=== PATIENT | male | born 1990 | race American Indian/Alaskan Native ===

== ENCOUNTER 2019-08-18 06:10 | Inpatient (IN) | payer OTHER ==
[~2019-08-18 06:10] MED LIST: DEXTROSE 50% IN WATER (25GM) 50 ML SYRINGE IV ONE
[2019-08-18] MEDS ORDERED: DEXTROSE 50% IN WATER (25GM) 50 ML SYRINGE IV ONE (06:15)
[2019-08-18] MEDS ORDERED: ONDANSETRON 4 MG/2 ML INJ IV ONE (06:48)
[2019-08-18 07:20] LABS: Bilirubin,Urine NEG (Negative); Blood,Urine NEG (Negative); Color,Urine Straw (Yellow); Urobilinogen,Urine < 2.0 mg/dL (<2.0)
[2019-08-18 07:23] LABS: Protein,Urine >2000 mg dL mg/dL (Negative)
[2019-08-18 07:24] LABS: Basophils # (Auto) 0.1 K/mm3 (0.0-0.1); Basophils % (Auto) 1.1 % (0.0-1.8); Eosinophils # (Auto) 0.1 K/mm3 (0.0-0.4); Eosinophils % (Auto) 1.8 % (0.0-4.3); Hematocrit 32.3 % (35.5-45.6); Lymphocytes # (Auto) 1.6 K/mm3 (1.2-5.4); Lymphocytes % (Auto) 24.6 % (13.4-35.0); Mean Corpuscular HGB Conc 31 % (32-34); Mean Corpuscular Volume 71 fl (84-94); Monocytes # (Auto) 0.4 K/mm3 (0.0-0.8); Monocytes % (Auto) 6.6 % (0.0-7.3); Platelet Count 236 K/mm3 (140-440); Red Blood Count 4.55 M/mm3 (3.65-5.03); Red Cell Distribution Width 16.5 % (13.2-15.2)
[2019-08-18 07:36] LABS: Calcium 9.3 mg/dL (8.4-10.2)
--- NOTE | 2019-08-18 08:24 | Emergency Department Report ---
ED Altered Mental Status HPI - General Chief Complaint: Hypoglycemia Stated Complaint: HYPOGLYCEMIA Time Seen by Provider: 08/18/19 06:34 Source: family, EMS Mode of arrival: Stretcher Limitations: Physical Limitation - History of Present Illness Initial Comments: 28-year-old male with a past medical history of insulin-dependent diabetes since age 4 presents to the hospital complaining of alteration in mental status secondary to hypoglycemia. Patient spoke to his mother to phone at 1 AM. She returned home at 5:05 AM and found him unconscious on the floor. Accu-Chek noted to be 36 upon EMS arrival. IV access was not obtained. Upon ED arrival A ccu-Chek was 20 a.m. patient was cold, clammy, and drowsy. Patient received 1 amp of D50 prior to my evaluation and was alert and oriented 3. Complained of feeling cold. Patient states he takes NovoLog 30 units in a.m. and 20 units daily at bedtime. Patient thinks he ate less food last night than usual. He denies any recent infectious symptoms. He denies nausea, vomiting, fever, cough, shortness of breath, or dysuria. Patient also denies pain including headache, abdominal pain, or chest pain. Patient presents with elevated blood pressure. States he was told 2 months ago in [place] his blood pressure is high and states he was supposed to start medication. He moved to the [place] a constance 3 weeks ago. He states to his knowledge his kidney function is normal. - Related Data Allergies Allergy/AdvReac Type Severity Reaction Status Date / Time No Known Allergies Allergy Verified 08/18/19 06:38 ED Review of Systems ROS: Stated complaint: HYPOGLYCEMIA Other details as noted in HPI Comment: All other systems reviewed and negative ED Past Medical Hx - Past Medical History Previous Medical History?: Yes Hx Diabetes: Yes - Surgical History Past Surgical History?: No - Social History Smoking Status: Never Smoker Substance Use Type: Alcohol, Marijuana ED Physical Exam - General Limitations: Physical Limitation - Other Other exam information: General: No acute distress Head: Atraumatic Eyes: normal appearance ENT: Moist mucous membranes Neck: Normal appearance, no midline tenderness Chest: Clear to auscultation bilaterally CV: Regular rate and rhythm Abdomen: Soft, normal bowel sounds, nontender, nondistended, no rebound or guarding Back: Normal inspection Extremity: Normal inspection infection, full range of motion Neuro: Alert O x 3, no facial asymmetry, speech clear, no gross motor sensory deficit Psych: Appropriate behavior Skin: No rash ED Course Vital Signs 08/18/19 08/18/19 08/18/19 06:20 06:29 08:04 Temperature 97.4 F L 97.9 F Pulse Rate 94 H 99 H Respiratory 20 17 Rate Blood Pressure 243/127 Blood Pressure 243/127 186/117 [Left] O2 Sat by Pulse 100 100 Oximetry - Lab Data Result diagrams: 08/18/19 07:11 08/18/19 07:11 Lab Results 08/18/19 08/18/19 08/18/19 Range/Units 06:24 06:51 06:54 WBC (4.5-11.0) K/mm3 RBC (3.65-5.03) M/mm3 Hgb (11.8-15.2) gm/dl Hct (35.5-45.6) % MCV (84-94) fl MCH (28-32) pg MCHC (32-34) % RDW (13.2-15.2) % Plt Count (140-440) K/mm3 Lymph % (Auto) (13.4-35.0) % [place] % (Auto) (0.0-7.3) % Eos % (Auto) (0.0-4.3) % Baso % (Auto) (0.0-1.8) % Lymph # (1.2-5.4) K/mm3 [place] # (0.0-0.8) K/mm3 Eos # (0.0-0.4) K/mm3 Baso # (0.0-0.1) K/mm3 Seg Neutrophils % (40.0-70.0) % Seg Neutrophils # (1.8-7.7) K/mm3 Sodium (137-145) mmol/L Potassium (3.6-5.0) mmol/L Chloride (98-107) mmol/L Carbon Dioxide (22-30) mmol/L Anion Gap mmol/L BUN (9-20) mg/dL Creatinine (0.8-1.5) mg/dL Estimated GFR ml/min BUN/Creatinine Ratio % Glucose (75-100) mg/dL POC Glucose < 40 L 131 H (70-105) Calcium (8.4-10.2) mg/dL Urine Color Straw (Yellow) Urine Turbidity Clear (Clear) Urine pH 6.0 (5.0-7.0) Ur Specific [place] 1.008 (1.003-1.030) Urine Protein >2000 mg dl (Negative) mg/dL Urine Glucose (UA) 50 (Negative) mg/dL Urine Ketones Neg (Negative) mg/dL Urine Blood Neg (Negative) Urine Nitrite Neg (Negative) Urine Bilirubin Neg (Negative) Urine Urobilinogen < 2.0 (<2.0) mg/dL Ur Leukocyte Esterase Neg (Negative) Urine WBC (Auto) 1.0 (0.0-6.0) /HPF Urine RBC (Auto) 2.0 (0.0-6.0) /HPF U Epithel Cells (Auto) < 1.0 (0-13.0) /HPF 08/18/19 08/18/19 08/18/19 Range/Units 07:11 07:11 08:10 WBC 6.5 (4.5-11.0) K/mm3 RBC 4.55 (3.65-5.03) M/mm3 Hgb 10.0 L (11.8-15.2) gm/dl Hct 32.3 L (35.5-45.6) % MCV 71 L (84-94) fl MCH 22 L (28-32) pg MCHC 31 L (32-34) % RDW 16.5 H (13.2-15.2) % Plt Count 236 (140-440) K/mm3 Lymph % (Auto) 24.6 (13.4-35.0) % Reynolds % (Auto) 6.6 (0.0-7.3) % Eos % (Auto) 1.8 (0.0-4.3) % Baso % (Auto) 1.1 (0.0-1.8) % Lymph # 1.6 (1.2-5.4) K/mm3 Reynolds # 0.4 (0.0-0.8) K/mm3 Eos # 0.1 (0.0-0.4) K/mm3 Baso # 0.1 (0.0-0.1) K/mm3 Seg Neutrophils % 65.9 (40.0-70.0) % Seg Neutrophils # 4.3 (1.8-7.7) K/mm3 Sodium 143 (137-145) mmol/L Potassium 4.4 (3.6-5.0) mmol/L Chloride 107.7 H (98-107) mmol/L Carbon Dioxide 19 L (22-30) mmol/L Anion Gap 21 mmol/L BUN 27 H (9-20) mg/dL Creatinine 2.5 H (0.8-1.5) mg/dL Estimated GFR 31 ml/min BUN/Creatinine Ratio 11 % Glucose 79 (75-100) mg/dL POC Glucose 78 (70-105) Calcium 9.3 (8.4-10.2) mg/dL Urine Color (Yellow) Urine Turbidity (Clear) Urine pH (5.0-7.0) Ur Specific [place] (1.003-1.030) Urine Protein (Negative) mg/dL Urine Glucose (UA) (Negative) mg/dL Urine Ketones (Negative) mg/dL Urine Blood (Negative) Urine Nitrite (Negative) Urine Bilirubin (Negative) Urine Urobilinogen (<2.0) mg/dL Ur Leukocyte Esterase (Negative) Urine WBC (Auto) (0.0-6.0) /HPF Urine RBC (Auto) (0.0-6.0) /HPF U Epithel Cells (Auto) (0-13.0) /HPF - EKG Data -: EKG Interpreted by [facility] EKG shows normal: sinus rhythm, ST-T waves (no stemi) Rate: normal - Medical Decision Making Patient has renal insufficiency. Denies previous history. Patient is medically elevated blood pressure. Denies headache, blurred vision, focal numbness or weakness. Altered mental status secondary to hypoglycemia corrected with IV insulin and oral food. Hypothermia is also correcting with active warming. Labetalol ordered for blood pressure. Hospitalist to admit for further treatment neprology consult ordered - Differential Diagnosis hyperglycemia, insulin reaction, infection Critical Care Time: No Critical care attestation.: If time is entered above; I have spent that time in minutes in the direct care of this critically ill patient, excluding procedure time. ED Disposition Clinical Impression: Hypoglycemia, Renal insufficiency, Uncontrolled hypertension, IDDM (insulin dependent diabetes mellitus) Disposition: OP ADMIT IP TO THIS HOSP Is pt being admited?: Yes Condition: Stable Time of Disposition: 08:32 (Dr aguirre/maddison)
[2019-08-18] MEDS ORDERED: ACETAMINOPHEN 325 MG TAB PO PRN (11:06)
[2019-08-18] MEDS ORDERED: ONDANSETRON 4 MG/2 ML INJ IV PRN (11:06)
[2019-08-18] MEDS ORDERED: oxyCODONE /ACETAMINOPHEN 5-325MG TAB PO PRN (11:06)
[2019-08-18] MEDS ORDERED: DEXTROSE 50% IN WATER (25GM) 50 ML SYRINGE IV PRN (11:09)
[2019-08-18] MEDS ORDERED: SODIUM CHLORIDE 0.9% 1000 ML 1,000 ML IV SCH (11:15)
[2019-08-18] MEDS ORDERED: SODIUM CHLORIDE 0.45% 500 ML IV SCH (12:00)
[2019-08-18] MEDS ORDERED: hydrALAZINE 20 MG/1 ML INJ IV PRN ×2 (12:12→12:14)
--- NOTE | 2019-08-18 12:12 | History and Physical Report ---
History of Present Illness Date of examination: 08/18/19 Date of admission: 08/18/19 08:37 Chief complaint: Low BG and AMS History of present illness: 28-year-old male with a past medical history of insulin-dependent diabetes since age 4 who was brought to the ED via EMS on account of low BG and AMS. Patient spoke to his mother on the phone at 1 AM. She returned home at 5:05 AM and found him unconscious on the floor. Accu-Chek noted to be 36 upon EMS arrival. Upon ED arrival, Accu-Chek was 20 and patient was cold, clammy, and drowsy. He received 1 amp of D50 and he complained of chills. Patient states he takes NovoLog 30 units in a.m. and 20 units daily at bedtime. He thinks he ate less food last night than usual. He denied any symptoms prior to the incident. He denies nausea, vomiting, fever, cough, shortness of breath, or dysuria. Patient also denies pain including headache, abdominal pain, or chest pain. Patient was also noted to have elevated blood pressure at presentation. He states that he was told 2 months ago in [place] that his blood pressure was high and he was supposed to start medication. He moved to the [place] area 3 weeks ago. He states to his knowledge that his kidney function is normal. Past History Past Medical History: diabetes, hypertension Past Surgical History: No surgical history Social history: other (He denies tobacco and alcohol use but admits to 4 yrs h/o marijuana use) Family history: diabetes (grandmum) Medications and Allergies Allergies Allergy/AdvReac Type Severity Reaction Status Date / Time No Known Allergies Allergy Verified 08/18/19 06:38 Home Medications Medication Instructions Recorded Confirmed Last Taken Type Insulin NPH Hum/Reg Insulin Hm 20 units SUB-Q QACHS 08/18/19 08/18/19 08/17/19 History [Novolin 70-30 100 Unit/ml Vial] Active Meds: Active Medications Acetaminophen (Tylenol) 650 mg PO Q4H PRN PRN Reason: Pain MILD(1-3)/Fever >100.5/KLEIN Dextrose (D50w (25gm) Syringe) 50 ml IV Q30MIN PRN; Protocol PRN Reason: Hypoglycemia Sodium Chloride (Nacl 0.45% 1000 Ml) 1,000 mls @ 100 mls/hr IV DIRECT SUZANNA Insulin Human Lispro (Humalog) 0 unit SUB-Q ACHS SUZANNA; Protocol Ondansetron HCl (Zofran) 4 mg IV Q8H PRN PRN Reason: Nausea And Vomiting Oxycodone/Acetaminophen (Percocet 5/325) 1 tab PO Q6H PRN PRN Reason: Pain, Moderate (4-6) Sodium Chloride (Sodium Chloride Flush Syringe 10 Ml) 10 ml IV BID SUZANNA Sodium Chloride (Sodium Chloride Flush Syringe 10 Ml) 10 ml IV PRN PRN PRN Reason: LINE FLUSH Review of Systems All systems: negative (All other systems reviewed with the pt and are neg unless otherwise stated above) Exam - Constitutional Vitals: Temp Pulse Resp BP Pulse Ox 98.2 F 101 H 20 176/106 100 08/18/19 08:55 08/18/19 10:31 08/18/19 10:31 08/18/19 10:31 08/18/19 10:31 General appearance: Present: no acute distress, well-nourished - EENT Eyes: Present: PERRL, EOM intact ENT: hearing intact, clear oral mucosa - Neck Neck: Present: supple, normal ROM - Respiratory Respiratory effort: normal Respiratory: bilateral: CTA - Cardiovascular Rhythm: regular Heart Sounds: Present: S1 & S2. Absent: rub, click - Extremities Extremities: No edema Peripheral Pulses: within normal limits - Abdominal General gastrointestinal: Present: soft, non-tender, non-distended, normal bowel sounds Male genitourinary: Present: deferred - Integumentary Integumentary: Present: clear, warm, dry - Musculoskeletal Musculoskeletal: gait normal, strength equal bilaterally - Psychiatric Psychiatric: appropriate mood/affect, intact judgment & insight - Neurologic Neurologic: CNII-XII intact, moves all extremities Results - Labs CBC & Chem 7: 08/18/19 07:11 08/18/19 07:11 Labs: Laboratory Last Values WBC 6.5 K/mm3 (4.5-11.0) 08/18/19 07:11 RBC 4.55 M/mm3 (3.65-5.03) 08/18/19 07:11 Hgb 10.0 gm/dl (11.8-15.2) L 08/18/19 07:11 Hct 32.3 % (35.5-45.6) L 08/18/19 07:11 MCV 71 fl (84-94) L 08/18/19 07:11 MCH 22 pg (28-32) L 08/18/19 07:11 MCHC 31 % (32-34) L 08/18/19 07:11 RDW 16.5 % (13.2-15.2) H 08/18/19 07:11 Plt Count 236 K/mm3 (140-440) 08/18/19 07:11 Lymph % (Auto) 24.6 % (13.4-35.0) 08/18/19 07:11 [place] % (Auto) 6.6 % (0.0-7.3) 08/18/19 07:11 Eos % (Auto) 1.8 % (0.0-4.3) 08/18/19 07:11 Baso % (Auto) 1.1 % (0.0-1.8) 08/18/19 07:11 Lymph # 1.6 K/mm3 (1.2-5.4) 08/18/19 07:11 [place] # 0.4 K/mm3 (0.0-0.8) 08/18/19 07:11 Eos # 0.1 K/mm3 (0.0-0.4) 08/18/19 07:11 Baso # 0.1 K/mm3 (0.0-0.1) 08/18/19 07:11 Seg Neutrophils % 65.9 % (40.0-70.0) 08/18/19 07:11 Seg Neutrophils # 4.3 K/mm3 (1.8-7.7) 08/18/19 07:11 Sodium 143 mmol/L (137-145) 08/18/19 07:11 Potassium 4.4 mmol/L (3.6-5.0) 08/18/19 07:11 Chloride 107.7 mmol/L (98-107) H 08/18/19 07:11 Carbon Dioxide 19 mmol/L (22-30) L 08/18/19 07:11 Anion Gap 21 mmol/L 08/18/19 07:11 BUN 27 mg/dL (9-20) H 08/18/19 07:11 Creatinine 2.5 mg/dL (0.8-1.5) H 08/18/19 07:11 Estimated GFR 31 ml/min 08/18/19 07:11 BUN/Creatinine Ratio 11 % 08/18/19 07:11 Glucose 79 mg/dL (75-100) 08/18/19 07:11 POC Glucose 126 (70-105) H 08/18/19 09:26 Calcium 9.3 mg/dL (8.4-10.2) 08/18/19 07:11 Urine Color Straw (Yellow) 08/18/19 06:54 Urine Turbidity Clear (Clear) 08/18/19 06:54 Urine pH 6.0 (5.0-7.0) 08/18/19 06:54 Ur Specific [place] 1.008 (1.003-1.030) 08/18/19 06:54 Urine Protein >2000 mg dl mg/dL (Negative) 08/18/19 06:54 Urine Glucose (UA) 50 mg/dL (Negative) 08/18/19 06:54 Urine Ketones Neg mg/dL (Negative) 08/18/19 06:54 Urine Blood Neg (Negative) 08/18/19 06:54 Urine Nitrite Neg (Negative) 08/18/19 06:54 Urine Bilirubin Neg (Negative) 08/18/19 06:54 Urine Urobilinogen < 2.0 mg/dL (<2.0) 08/18/19 06:54 Ur Leukocyte Esterase Neg (Negative) 08/18/19 06:54 Urine WBC (Auto) 1.0 /HPF (0.0-6.0) 08/18/19 06:54 Urine RBC (Auto) 2.0 /HPF (0.0-6.0) 08/18/19 06:54 U Epithel Cells (Auto) < 1.0 /HPF (0-13.0) 08/18/19 06:54 Assessment and Plan Assessment and plan: IDDM type 1 with hypoglycemia -on hypoglycemic protocol -at home, pt takes novolin 70/30 30u in am and 20u at night -will place him on humulin 70/30 15u BID and SSI since he's DM1 and it's recommended not to entirely discontinue insulin in type 1 DM pts. Hypothermia -probably 2/2 above -resolved with elvin-hugger Metabolic encephalopathy -likely 2/2 hypoglycemia -resolved HTN urgency -on oral coreg and amlodipine -monitor BP and adjust meds as needed SUMIT -probably vasomotor nephropathy -on IVF, will monitor cr level -nephrology consulted Metabolic acidosis -likely 2/2 SUMIT -on IVF, will monitor level Chronic microcytic anemia -will check iron panel -will monitor H/H DVT ppx: SCD Disp: pt admitted to inpt status Time spent: 38 mins
[2019-08-18] MEDS: INSULIN LISPRO 100 UNIT/ML SUB-Q SCH ×3 (12:47→22:24)
[2019-08-18] MEDS: carvediloL 25 MG TAB PO SCH ×2 (12:57→22:23)
[2019-08-18] MEDS ORDERED: amLODIPine 5 MG TAB PO SCH (13:00)
[2019-08-18] MEDS: SODIUM CHLORIDE 0.45% 1000 ML 1,000 ML IV SCH (13:01)
--- NOTE | 2019-08-18 14:13 | Consultation ---
History of Present Illness - Reason for Consult Consult date: 08/18/19 acute renal failure, accelerated hypertension - History of Present Illness The pt is a 28 YO male with history significant for type 1 diabetes since age 4 who presented to [facility] ED after he was found unresponsive at home by his mother. Accucheck noted to be 36 by EMS. In the ED his blood sugar was <40. Patient received 1 amp of D50 with increase in the blood suagr level. He takes the usual dose fo Insulin but ate less food last night than usual. He denies nausea, vomiting, diarrhea, abd pain, fever, cough, shortness of breath, dysuria, cp or sob. He last saw a physician more than a year ago. He is not sure about his kidney function in the past. Initial BP was 240/130. Nephrology was consulted for further evaluation. Past History Past Medical History: diabetes Medications and Allergies Allergies Allergy/AdvReac Type Severity Reaction Status Date / Time No Known Allergies Allergy Verified 08/18/19 06:38 Home Medications Medication Instructions Recorded Confirmed Last Taken Type Insulin NPH Hum/Reg Insulin Hm 20 units SUB-Q QACHS 08/18/19 08/18/19 08/17/19 History [Novolin 70-30 100 Unit/ml Vial] Active Meds: Active Medications Acetaminophen (Tylenol) 650 mg PO Q4H PRN PRN Reason: Pain MILD(1-3)/Fever >100.5/KLEIN Amlodipine Besylate (Amlodipine) 5 mg PO QDAY [facility] Last Admin: 08/18/19 12:51 Dose: 5 mg Documented by: Carvedilol (Coreg) 25 mg PO BID [facility] Last Admin: 08/18/19 12:57 Dose: 25 mg Documented by: Dextrose (D50w (25gm) Syringe) 50 ml IV Q30MIN PRN; Protocol PRN Reason: Hypoglycemia Hydralazine HCl (Apresoline) 10 mg IV Q4HR PRN PRN Reason: Blood Pressure Sodium Chloride (Nacl 0.45% 1000 Ml) 1,000 mls @ 100 mls/hr IV DIRECT [facility] Last Admin: 08/18/19 13:01 Dose: 100 mls/hr Documented by: Insulin Human Lispro (Humalog) 0 unit SUB-Q ACHS SUZANNA; Protocol Last Admin: 08/18/19 12:47 Dose: 3 unit Documented by: Ondansetron HCl (Zofran) 4 mg IV Q8H PRN PRN Reason: Nausea And Vomiting Oxycodone/Acetaminophen (Percocet 5/325) 1 tab PO Q6H PRN PRN Reason: Pain, Moderate (4-6) Sodium Chloride (Sodium Chloride Flush Syringe 10 Ml) 10 ml IV BID SUZANNA Sodium Chloride (Sodium Chloride Flush Syringe 10 Ml) 10 ml IV PRN PRN PRN Reason: LINE FLUSH Review of Systems Constitutional: no weight loss, no weight gain, no fever, no chills, no anorexia, no fatigue, no weakness, no poor appetite Cardiovascular: no chest pain, no orthopnea, no edema, no lightheadedness, no shortness of breath, no high blood pressure, no leg edema Respiratory: no cough, no cough with sputum, no hemoptysis, no shortness of breath Gastrointestinal: no abdominal pain, no nausea, no vomiting, no diarrhea Genitourinary Male: no dysuria, no hematuria Musculoskeletal: no morning stiffness, no muscle cramps Integumentary: no rash, no sores, no wounds, no jaundice Neurological: change in mentation, confusion, no seizures, no syncope, no vertigo, no headaches, no convulsions, no aphasia Exam - Vital Signs Vital signs: Vital Signs Pulse Ox 100 08/18/19 06:18 - General Appearance General appearance: well-developed, well-nourished, appears stated age, other (not in distress) EENT: ATNC, PERRL, mucous membranes moist, hearing intact, vision intact Neck: Present: neck supple, trachea midline Respiratory: Clear to Ascultation Heart: regular, S1S2, no murmurs Gastrointestinal: Present: normoactive bowel sounds. Absent: tenderness, distended Integumentary: no rash, warm and dry Neurologic: no focal deficit, no asterixis, alert and oriented x3 Musculoskeletal: Present: other (no edema) Results - Lab Results 08/18/19 07:11 08/18/19 07:11 Most recent lab results Calcium 9.3 mg/dL (8.4-10.2) 08/18/19 07:11 - Image Kidney/bladder ultrasound: pending Assessment and Plan 1. Acute kidney injury vs CKD stage 3: Likely CKD stage 3 secondary to diabetic nephropathy. UA showed proteinuria. Urine studies and Renal US ordered. Monitor renal function. Avoid nephrotoxic agents. Meds dosage based on GFR. 2. FEN: Anion-gap Metabolic acidosis, monitor. Monitor lytes. 3. Proteinuria: Secondary to diabetic nephropathy. Urine protein quantification. 4. Encephalopathy: Improved. 5. DM type 1: Admitted with hypoglycemia. 6. Uncontrolled Hypertension: Started on Amlodipine and Carvedilol. Monitor BP. 7. Microcytic anemia: POA.
[2019-08-18] MEDS: INSULIN NPH/REGULAR 70/30 INJ SUB-Q SCH (18:02)
[2019-08-19] MEDS: SODIUM CHLORIDE 0.45% 1000 ML 1,000 ML IV SCH (02:33)
[2019-08-19 05:48] LABS: Hematocrit 31.8 % (35.5-45.6); Mean Corpuscular HGB Conc 32 % (32-34); Platelet Count 237 K/mm3 (140-440); Red Blood Count 4.56 M/mm3 (3.65-5.03); Red Cell Distribution Width 15.9 % (13.2-15.2)
[2019-08-19 06:08] LABS: Creatinine,Urine 65.5 mg/dL (0.1-20.0); Protein/Creatinine Ratio,Urine 2.98
[2019-08-19 06:08] LABS: Mean Corpuscular Volume 70 fl (84-94)
[2019-08-19 06:17] LABS: Alanine Aminotransferase 14 units/L (7-56); Albumin 3.7 g/dL (3.9-5); BUN/Creatinine Ratio 11; Blood Urea Nitrogen 30 mg/dL (9-20); Calcium 9.3 mg/dL (8.4-10.2); Hemolysis Index 0; Iron 56 ug/dL (49-181); Total Iron Binding Capacity 218 mcg/dL (250-450)
[2019-08-19] MEDS: INSULIN LISPRO 100 UNIT/ML SUB-Q SCH ×2 (07:53→12:38)
[2019-08-19] MEDS: INSULIN NPH/REGULAR 70/30 INJ SUB-Q SCH (08:10)
--- NOTE | 2019-08-19 08:59 | Ultrasound Report ---
ULTRASOUND RENAL INDICATION / CLINICAL INFORMATION: Acute renal failure.. COMPARISON: None available. FINDINGS: RIGHT KIDNEY: Length = 11.8 cm. [normal > 9 cm] - Parenchymal Thickness = 1.8 cm. [normal > 1.5 cm] - Echogenicity: Increased - Hydronephrosis: None. - Cyst or mass: No significant abnormality. - Stones: None seen. LEFT KIDNEY: Length = 11.9 cm. [normal > 9 cm] - Parenchymal Thickness = 1.6 cm. [normal > 1.5 cm] - Echogenicity: Increased - Hydronephrosis: None. - Cyst or mass: No significant abnormality. - Stones: None seen. URINARY BLADDER: No significant abnormality. FREE FLUID: None. ADDITIONAL FINDINGS: None. IMPRESSION: Increased renal echotexture consistent with nonspecific renal parenchymal disease or acute renal carmen lure. No focal renal lesion or obstructive uropathy. Signer Name: Roger Elias Jr, MD Signed: 08/19/2019 8:54 AM Workstation Name: [id number]
--- NOTE | 2019-08-19 09:44 | Progress Note ---
Assessment and Plan 1. Acute kidney injury vs CKD stage 3: Likely CKD stage 3 secondary to diabetic nephropathy. UA showed proteinuria. Renal US suggestive of CKD. Monitor renal function. Renal prognosis is guarded. Avoid nephrotoxic agents. Meds dosage based on GFR. 2. FEN: Anion-gap Metabolic acidosis, monitor. Monitor lytes. 3. Non-nephrotic range Proteinuria: Secondary to diabetic nephropathy. Start ACEI / ARB once he is established with a physician. 4. Encephalopathy: Improved. 5. DM type 1: Admitted with hypoglycemia. 6. Uncontrolled Hypertension: Increase Amlodipine. Continue Carvedilol. Monitor BP. 7. Microcytic anemia: POA. If discharged f/u with me in 2 weeks. Examination: General appearance: well-developed, well-nourished, appears stated age, not in distress HEENT: ATNC, [place], mucous membranes moist, hearing intact, vision intact Neck: neck supple, trachea midline Respiratory: Clear to Ascultation Heart: regular, S1S2, no murmurs Gastrointestinal: normoactive bowel sounds, not tender, not distended Integumentary: no rash, warm and dry Neurologic: no focal deficit, no asterixis, alert and oriented x3 Ext: no edema Subjective Date of service: 08/19/19 Interval history: Patient was seen and examined at the bedside. Objective - Vital Signs Vital signs: Vital Signs - 12hr 08/18/19 08/18/19 08/19/19 22:23 23:54 05:14 Temperature 98.1 F 98.0 F Pulse Rate 97 H 94 H 73 Respiratory 20 20 Rate Blood Pressure 154/92 141/79 163/104 O2 Sat by Pulse 100 100 Oximetry - Lab 08/19/19 04:48 08/19/19 07:01 Most recent lab results Calcium 9.3 mg/dL (8.4-10.2) 08/19/19 04:48 Phosphorus 4.60 mg/dL (2.5-4.5) H 08/19/19 04:48 Magnesium 2.30 mg/dL (1.7-2.3) 08/19/19 04:48 Urine Creatinine 65.5 mg/dL (0.1-20.0) H 08/19/19 05:05 Urine Sodium 58 mmol/L 08/19/19 05:05 Urine Total Protein 195 mg/dL (5-11.8) H 08/19/19 05:05 Medications & Allergies - Medications Allergies/Adverse Reactions: Allergies No Known Allergies Allergy (Verified 08/18/19 06:38) Home Medications: Home Medications Medication Instructions Recorded Confirmed Last Taken Type Insulin NPH Hum/Reg Insulin Hm 20 units SUB-Q QACHS 08/18/19 08/18/19 08/17/19 History [Novolin 70-30 100 Unit/ml Vial] Active Medications: Generic Name Dose Route Start Last Admin Trade Name Freq PRN Reason Stop Dose Admin Acetaminophen 650 mg 08/18/19 11:06 Tylenol PO Q4H PRN Pain MILD(1-3)/Fever >100.5/KLEIN Amlodipine Besylate 5 mg 08/18/19 13:00 08/18/19 12:51 Amlodipine PO 5 mg QDAY SUZANNA Administration Carvedilol 25 mg 08/18/19 13:00 08/18/19 22:23 Coreg PO 25 mg BID SUZANNA Administration Dextrose 50 ml 08/18/19 11:09 08/19/19 00:03 D50w (25gm) Syringe IV 50 ml Q30MIN PRN Administration Hypoglycemia Protocol Hydralazine HCl 10 mg 08/18/19 12:14 08/18/19 18:05 Apresoline IV 10 mg Q4HR PRN Administration Blood Pressure Sodium Chloride 1,000 mls @ 100 mls/hr 08/18/19 12:00 08/19/19 02:33 Nacl 0.45% 1000 Ml IV 100 mls/hr DIRECT SUZANNA Administration Insulin Human Isoph/Insulin Regular 15 unit 08/18/19 17:00 08/18/19 18:02 Humulin 70/30 SUB-Q Not Given BIDDIAB SUZANNA Insulin Human Lispro 0 unit 08/18/19 11:30 08/19/19 07:53 Humalog SUB-Q Not Given ACHS SUZANNA Protocol Ondansetron HCl 4 mg 08/18/19 11:06 Zofran IV Q8H PRN Nausea And Vomiting Oxycodone/Acetaminophen 1 tab 08/18/19 11:06 Percocet 5/325 PO Q6H PRN Pain, Moderate (4-6) Sodium Chloride 10 ml 08/18/19 22:00 08/18/19 22:24 Sodium Chloride Flush Syringe 10 Ml IV 10 ml BID SUZANNA Administration Sodium Chloride 10 ml 08/18/19 11:06 Sodium Chloride Flush Syringe 10 Ml IV PRN PRN LINE FLUSH
[2019-08-19] MEDS ORDERED: amLODIPine 5 MG TAB PO SCH (10:00)
[2019-08-19] MEDS ORDERED: amLODIPine 10 MG TAB PO SCH (10:00)
[2019-08-19] MEDS: carvediloL 25 MG TAB PO SCH (10:08)
[2019-08-19 12:21] VITALS: BP 152/94
--- NOTE | 2019-08-19 12:36 | Discharge Summary ---
Providers - Providers Date of Admission: 08/18/19 08:37 Date of discharge: 08/19/19 Attending physician: BRIGITTE ALONSO 08/18/19 08:35 Consult to Physician [CONS] Urgent Comment: Consulting Provider: LUIS MACKEY Physician Instructions: Reason For Exam: renal insuf, htn, iddm Primary care physician: VOLUNTEER FIREFIGHTER Hospitalization Condition: Stable Hospital course: 28-year-old male with a past medical history of insulin-dependent diabetes since age 4 who was brought to the ED via EMS on account of low BG and AMS. Patient spoke to his mother on the phone at 1 AM. She returned home at 5:05 AM and found him unconscious on the floor. Accu-Chek noted to be 36 upon EMS arrival. Upon ED arrival, Accu-Chek was 20 and patient was cold, clammy, and drowsy. He received 1 amp of D50 and he complained of chills. Patient states he takes NovoLog 30 units in a.m. and 20 units daily at bedtime. He thinks he ate less food last night than usual. He denied any symptoms prior to the incident. He denies nausea, vomiting, fever, cough, shortness of breath, or dysuria. Patient also denies pain including headache, abdominal pain, or chest pain. Patient was also noted to have elevated blood pressure at presentation. He states that he was told 2 months ago in [place] that his blood pressure was high and he was supposed to start medication. He moved to the [place] area 3 weeks ago. He states to his knowledge that his kidney function is normal. IDDM type 1 with hypoglycemia -on hypoglycemic protocol -at home, pt takes novolin 70/30 30u in am and 20u at night -will place him on humulin 70/30 15u BID and SSI since he's DM1 and it's recommended not to entirely discontinue insulin in type 1 DM pts. Insulin dosage decreased Follow up with PCP Hypothermia -probably 2/2 above -resolved Metabolic encephalopathy -likely 2/2 hypoglycemia -resolved HTN urgency -on oral coreg and amlodipine -monitor BP and adjust meds as needed SUMIT -probably vasomotor nephropathy and underlying CKD -on IVF, will monitor cr level -nephrology consulted Metabolic acidosis -likely 2/2 SUMIT - Chronic microcytic anemia -Iron supplements Disposition: TO HOME OR SELFCARE Core Measure Documentation - Palliative Care Palliative Care/ Comfort Measures: Not Applicable - Core Measures Any of the following diagnoses?: none Exam - Constitutional Vitals: Temp Pulse Resp BP Pulse Ox 98.3 F 92 H 16 152/94 99 08/19/19 11:30 08/19/19 11:30 08/19/19 11:30 08/19/19 11:30 08/19/19 11:30 General appearance: Present: no acute distress, well-nourished - EENT Eyes: Present: PERRL ENT: hearing intact, clear oral mucosa - Neck Neck: Present: supple, normal ROM - Respiratory Respiratory effort: normal Respiratory: bilateral: CTA - Cardiovascular Heart rate: 78 Rhythm: regular Heart Sounds: Present: S1 & S2. Absent: rub, click - Extremities Extremities: no ischemia, pulses intact, pulses symmetrical, No edema Peripheral Pulses: within normal limits - Abdominal General gastrointestinal: Present: soft, non-tender, non-distended, normal bowel sounds Male genitourinary: Present: normal - Rectal Rectal Exam: deferred - Integumentary Integumentary: Present: clear, warm, dry - Musculoskeletal Musculoskeletal: gait normal, strength equal bilaterally - Psychiatric Psychiatric: appropriate mood/affect, intact judgment & insight - Neurologic Neurologic: CNII-XII intact, moves all extremities - Allied Health Allied health notes reviewed: nursing, case management Plan Activity: no restrictions Diet: low carbohydrate Durable Medical Equipment Needed Upon Discharge: Cane Follow up with: PRIMARY CARE, [Primary Care Provider] - 7 Days
== END 2019-08-19 14:00 | disposition home or self-care (01) | DRG 637 ==
LOC: ED 06:10 → 3A 08:37
PROVIDERS: ADMIT Internal Medicine; ATTEND Internal Medicine
DX: E10.649 Type 1 diabetes mellitus with hypoglycemia without coma (principal); G93.41 Metabolic encephalopathy; I16.0 Hypertensive urgency; R68.0 Hypothermia, not associated with low environmental temperature; F12.90 Cannabis use, unspecified, uncomplicated; E10.21 Type 1 diabetes mellitus with diabetic nephropathy; E10.22 Type 1 diabetes mellitus with diabetic chronic kidney disease; I12.9 Hypertensive chronic kidney disease with stage 1 through stage 4 chronic kidney disease, or unspecified chronic kidney disease; N18.9 Chronic kidney disease, unspecified; N17.0 Acute kidney failure with tubular necrosis; D50.9 Iron deficiency anemia, unspecified; Z79.4 Long term (current) use of insulin; Z83.3 Family history of diabetes mellitus
CPT/HCPCS: 36415; 76770; 80048; 80053; 81001; 82570; 82947; 82962; 83036; 83550; 83735; 83970; 84100; 84156; 84300; 85025; 85027; 89050; 93005; 93010; 96374; G0378; J0360; J1815; J2405; J7030

== ENCOUNTER 2019-08-20 03:52 | Observation (INO) | payer OTHER ==
[2019-08-20] MEDS ORDERED: DEXTROSE 50% IN WATER (25GM) 50 ML SYRINGE IV ONE ×3 (04:03→05:53)
[2019-08-20] MEDS ORDERED: ONDANSETRON 4 MG/2 ML INJ IV ONE (04:04)
[2019-08-20] MEDS ORDERED: ONDANSETRON 4 MG/2 ML INJ ONE (04:07)
--- NOTE | 2019-08-20 04:41 | XRay Report ---
CHEST 2 VIEWS INDICATION / CLINICAL INFORMATION: cough. COMPARISON: None available. FINDINGS: SUPPORT DEVICES: None. HEART / MEDIASTINUM: No significant abnormality. LUNGS / PLEURA: No significant pulmonary or pleural abnormality. No pneumothorax. ADDITIONAL FINDINGS: No significant additional findings. IMPRESSION: 1. No acute abnormality of the chest. Signer Name: Canelo Torres MD Signed: 08/20/2019 4:37 AM Workstation Name: [id number]
[2019-08-20 04:43] LABS: Bilirubin,Urine NEG (Negative); Blood,Urine NEG (Negative); Color,Urine Straw (Yellow); Urobilinogen,Urine < 2.0 mg/dL (<2.0)
[2019-08-20 04:48] LABS: Basophils # (Auto) 0.1 K/mm3 (0.0-0.1); Basophils % (Auto) 0.7 % (0.0-1.8); Eosinophils # (Auto) 0.1 K/mm3 (0.0-0.4); Eosinophils % (Auto) 1.6 % (0.0-4.3); Hemoglobin 9.8 gm/dl (11.8-15.2); Lymphocytes # (Auto) 1.8 K/mm3 (1.2-5.4); Lymphocytes % (Auto) 23.8 % (13.4-35.0); Mean Corpuscular HGB Conc 32 % (32-34); Mean Corpuscular Volume 71 fl (84-94); Monocytes # (Auto) 0.4 K/mm3 (0.0-0.8); Monocytes % (Auto) 5.1 % (0.0-7.3); Platelet Count 227 K/mm3 (140-440); Red Cell Distribution Width 16.3 % (13.2-15.2)
[2019-08-20 04:59] LABS: Protein,Urine >500 mg/dL (Negative)
--- NOTE | 2019-08-20 05:12 | Emergency Department Report ---
ED General Adult HPI - General Chief complaint: Hypoglycemia Stated complaint: LOW BLOOD GLUCOSE Time Seen by Provider: 08/20/19 04:03 Source: patient, EMS Mode of arrival: Stretcher Limitations: No Limitations - History of Present Illness Initial comments: 24-year-old male with history of diabetes, hypertension, chronic kidney disease, hypertension, presents to ED for hypoglycemic episode. Patient states he awoke from his sleep and felt cold. Patient states he then decided to get in bed with his mother, states as he was walking to her room, he passed out. EMS was called and patient was found to have an Accu-Chek in the 20s. Glucose was given by EMS and patient was transported to the ER. Patient is currently awake and alert. Had one episode of emesis while in the ambulance. Denies any fever, abdominal pain, diarrhea. Patient does report that he has had a cough. Patient was recently discharged from this hospital following a one-day admission for hypoglycemia, hypertensive urgency, and acute kidney injury. -: This morning Consistency: now resolved Improves with: none Worsens with: none Associated Symptoms: nausea/vomiting. denies: fever/chills, headaches, shortness of breath - Related Data Previous Rx's Medication Instructions Recorded Last Taken Type amLODIPine 10 mg PO DAILY #30 tablet 08/19/19 Unknown Rx carvediloL [Coreg] 25 mg PO BID #60 tablet 08/19/19 Unknown Rx Insulin Regular, Human [HumuLIN R] 0 unit SQ AC #1 vial 08/21/19 Unknown Rx Allergies Allergy/AdvReac Type Severity Reaction Status Date / Time No Known Allergies Allergy Verified 08/18/19 06:38 ED Review of Systems ROS: Stated complaint: LOW BLOOD GLUCOSE Other details as noted in HPI Comment: All other systems reviewed and negative Constitutional: chills. denies: fever Respiratory: cough. denies: shortness of breath Cardiovascular: denies: chest pain Gastrointestinal: vomiting. denies: abdominal pain, diarrhea ED Past Medical Hx - Past Medical History Previous Medical History?: Yes Hx Congestive Heart Failure: No Hx Diabetes: Yes Hx Asthma: No Hx COPD: No - Surgical History Past Surgical History?: No - Social History Smoking Status: Never Smoker Substance Use Type: None - Medications Home Medications: Home Medications Medication Instructions Recorded Confirmed Last Taken Type amLODIPine 10 mg PO DAILY #30 tablet 08/19/19 08/20/19 Unknown Rx carvediloL [Coreg] 25 mg PO BID #60 tablet 08/19/19 08/20/19 Unknown Rx Insulin Regular, Human [HumuLIN R] 0 unit SQ AC #1 vial 08/21/19 Unknown Rx ED Physical Exam - General Limitations: No Limitations General appearance: alert, in no apparent distress - Head Head exam: Present: atraumatic, normocephalic - Eye Eye exam: Present: normal appearance, EOMI - ENT ENT exam: Present: mucous membranes moist - Neck Neck exam: Present: normal inspection - Respiratory Respiratory exam: Present: wheezes (scattered). Absent: respiratory distress - Cardiovascular Cardiovascular Exam: Present: regular rate, normal rhythm - GI/Abdominal GI/Abdominal exam: Present: soft. Absent: distended, tenderness - Extremities Exam Extremities exam: Present: normal inspection - Neurological Exam Neurological exam: Present: alert, oriented X3 - Psychiatric Psychiatric exam: Present: normal affect, normal mood - Skin Skin exam: Present: warm, dry, intact, normal color, rash ED Course Vital Signs 08/20/19 08/20/19 08/20/19 03:57 04:00 04:03 Temperature 97.9 F Pulse Rate Pulse Rate [ Bilateral] Respiratory Rate Respiratory Rate [Bilateral ] Blood Pressure 181/116 Blood Pressure [Right] O2 Sat by Pulse 100 100 Oximetry 08/20/19 08/20/19 08/20/19 04:22 04:30 04:44 Temperature Pulse Rate Pulse Rate [ Bilateral] Respiratory Rate Respiratory Rate [Bilateral ] Blood Pressure 181/116 161/101 166/102 Blood Pressure [Right] O2 Sat by Pulse 100 100 100 Oximetry 08/20/19 08/20/19 08/20/19 05:00 05:30 06:00 Temperature Pulse Rate Pulse Rate [ Bilateral] Respiratory Rate Respiratory Rate [Bilateral ] Blood Pressure 169/103 130/79 174/102 Blood Pressure [Right] O2 Sat by Pulse 100 100 99 Oximetry 08/20/19 08/20/19 08/20/19 06:04 06:30 07:00 Temperature Pulse Rate 92 H 94 H Pulse Rate [ 89 Bilateral] Respiratory 17 46 H Rate Respiratory 22 Rate [Bilateral ] Blood Pressure 180/104 168/98 Blood Pressure [Right] O2 Sat by Pulse 100 Oximetry 08/20/19 08/20/19 08/20/19 07:10 07:20 07:30 Temperature Pulse Rate Pulse Rate [ Bilateral] Respiratory 27 H 17 16 Rate Respiratory Rate [Bilateral ] Blood Pressure 168/98 168/98 168/98 Blood Pressure [Right] O2 Sat by Pulse 100 100 99 Oximetry 08/20/19 08/20/19 08/20/19 07:40 07:50 08:00 Temperature Pulse Rate Pulse Rate [ Bilateral] Respiratory 12 22 17 Rate Respiratory Rate [Bilateral ] Blood Pressure 192/103 192/103 192/103 Blood Pressure [Right] O2 Sat by Pulse 100 100 100 Oximetry 08/20/19 08/20/19 08/20/19 08:10 08:55 08:58 Temperature 98.2 F Pulse Rate 101 H Pulse Rate [ Bilateral] Respiratory 17 18 Rate Respiratory Rate [Bilateral ] Blood Pressure 199/112 157/96 157/86 Blood Pressure 157/86 [Right] O2 Sat by Pulse 100 99 Oximetry 08/20/19 09:00 Temperature Pulse Rate Pulse Rate [ Bilateral] Respiratory Rate Respiratory Rate [Bilateral ] Blood Pressure 167/100 Blood Pressure [Right] O2 Sat by Pulse Oximetry - Consultations Consultation #1: 08/20/19 05:33 Spoke w/ Dr Espinosa. He will be seeing the pt. ED Medical Decision Making - Lab Data Result diagrams: 08/21/19 03:30 08/21/19 03:30 - EKG Data -: EKG Interpreted by Ma EKG shows normal: sinus rhythm, axis, intervals, QRS complexes Rate: normal (rate 86) - EKG Data Interpretation: other (LAFB, peaked T waves) - Radiology Data Radiology results: report reviewed, image reviewed - Medical Decision Making - hypoglycemic episode, glucose improved - labs show hyperkalemia w/ potassium of 5.8 - pt given albuterol, insulin, d50, calcium, kayexalate - spoke w/ oil and gas superintendent, will be seeing pt today - will admit to hospitalist Critical Care Time: Yes Critical care time in (mins) excluding proc time.: 35 Critical care attestation.: If time is entered above; I have spent that time in minutes in the direct care of this critically ill patient, excluding procedure time. Critical Care Time: 35 min ED Disposition Clinical Impression: Hypoglycemia, Renal insufficiency, Hyperkalemia Disposition: OP ADMIT IP TO THIS HOSP Is pt being admited?: Yes Condition: Stable Time of Disposition: 05:46
[2019-08-20 05:13] LABS: Alanine Aminotransferase 15 units/L (7-56); Albumin 3.9 g/dL (3.9-5); BUN/Creatinine Ratio 11; Blood Urea Nitrogen 32 mg/dL (9-20); Calcium 9.1 mg/dL (8.4-10.2); Hemolysis Index 2
[2019-08-20] MEDS ORDERED: CALCIUM GLUCONATE 1,000 MG in SODIUM CHLORIDE 0.9% 100 ML IV ONE (05:32)
[2019-08-20] MEDS ORDERED: SODIUM POLYSTYRENE 15 GM/60 ML ORAL LIQD PO ONE ×2 (05:32→08:49)
[2019-08-20] MEDS ORDERED: ALBUTEROL 2.5 MG/3 ML NEBU IH ONE (05:32)
[2019-08-20] MEDS ORDERED: SODIUM CHLORIDE 0.9% 1000 ML 1,000 ML IV ONE ×2 (05:45→17:56)
[2019-08-20] MEDS ORDERED: INSULIN REGULAR, HUMAN 100 UNITS/1 ML IV ONE (05:52)
--- NOTE | 2019-08-20 07:31 | History and Physical Report ---
History of Present Illness Date of examination: 08/20/19 Date of admission: 08/20/19 Chief complaint: Hypoglycemia History of present illness: Patient is a 28 year old male with past medical hx of insulin-dependent diabetes since age 4 who was brought to the ED via EMS on account of low BG and AMS. He was recently discharged from the hospital with the same condition and adjusted his insulin downward. At the time of my visit in the ED the patient was still very hypertensive and again hypoglycemia with blood sugar of 46. He denies any chest pain, nausea, vomiting or diarrhea. He states that he was told 2 months ago in [place] that his blood pressure was high and he was supposed to start medication. He moved to the [facility] 3 weeks ago. He states to his knowledge that his kidney function is normal. He denies any loss of weight, but states that he has had poor PO intake. Past History Past Medical History: diabetes, hypertension Past Surgical History: No surgical history Social history: no significant social history Family history: no significant family history Medications and Allergies Allergies Allergy/AdvReac Type Severity Reaction Status Date / Time No Known Allergies Allergy Verified 08/18/19 06:38 Home Medications Medication Instructions Recorded Confirmed Last Taken Type Insulin NPH Hum/Reg Insulin Hm 15 units SUB-Q BID #2 vial 08/19/19 08/20/19 Unknown Rx [Novolin 70-30 100 Unit/ml Vial] amLODIPine 10 mg PO DAILY #30 tablet 08/19/19 08/20/19 Unknown Rx carvediloL [Coreg] 25 mg PO BID #60 tablet 08/19/19 08/20/19 Unknown Rx Review of Systems All systems: negative Constitutional: sweats, no weight loss, no weight gain, no fever, no chills Cardiovascular: no chest pain, no orthopnea, no palpitations Respiratory: no cough, no cough with sputum, no hemoptysis, no shortness of breath, no pain, no pain on inspiration Musculoskeletal: no neck stiffness, no neck pain, no shooting arm pain, no low back pain, no muscle weakness, no muscle cramps Integumentary: no pruritis, no sores, no wounds, no growths, no depigmentation, no color changes, no brittle nails, no foot/leg ulcers Neurological: weakness, no parathesias, no numbness, no seizures, no syncope, no migraines, no aphasia, no change in mentation, no sensory deficit, no double vision Psychiatric: no anxiety, no memory loss, no change in sleep habits, no insomnia Endocrine: no heat intolerance, no polydipsia, no polyuria, no thyroid mass, no high blood sugars Hematologic/Lymphatic: no easy bruising, no lymphadenopathy Allergic/Immunologic: no urticaria, no persistent infections, no angioedema Exam - Constitutional Vitals: Temp Pulse Resp BP Pulse Ox 97.9 F 94 H 46 H 168/98 100 08/20/19 04:03 08/20/19 07:00 08/20/19 07:00 08/20/19 07:00 08/20/19 06:30 General appearance: Present: no acute distress, well-nourished - EENT Eyes: Present: PERRL, EOM intact ENT: hearing intact, clear oral mucosa, dentition normal - Neck Neck: Present: supple, normal ROM - Respiratory Respiratory effort: normal Respiratory: bilateral: CTA - Cardiovascular Rhythm: regular Heart Sounds: Present: S1 & S2. Absent: systolic murmur, diastolic murmur - Extremities Extremities: no ischemia, pulses intact, pulses symmetrical, No edema, normal temperature, normal color, Full ROM Peripheral Pulses: within normal limits - Abdominal General gastrointestinal: Present: soft, non-tender, non-distended, normal bowel sounds - Integumentary Integumentary: Present: clear, warm, dry - Musculoskeletal Musculoskeletal: strength equal bilaterally - Psychiatric Psychiatric: appropriate mood/affect, intact judgment & insight, memory intact - Neurologic Neurologic: CNII-XII intact, moves all extremities - Allied Health Allied health notes reviewed: nursing Results - Labs CBC & Chem 7: 08/20/19 04:34 08/20/19 15:33 Labs: Laboratory Last Values WBC 7.4 K/mm3 (4.5-11.0) 08/20/19 04:34 RBC 4.40 M/mm3 (3.65-5.03) 08/20/19 04:34 Hgb 9.8 gm/dl (11.8-15.2) L 08/20/19 04:34 Hct 31.0 % (35.5-45.6) L 08/20/19 04:34 MCV 71 fl (84-94) L 08/20/19 04:34 MCH 22 pg (28-32) L 08/20/19 04:34 MCHC 32 % (32-34) 08/20/19 04:34 RDW 16.3 % (13.2-15.2) H 08/20/19 04:34 Plt Count 227 K/mm3 (140-440) 08/20/19 04:34 Lymph % (Auto) 23.8 % (13.4-35.0) 08/20/19 04:34 [place] % (Auto) 5.1 % (0.0-7.3) 08/20/19 04:34 Eos % (Auto) 1.6 % (0.0-4.3) 08/20/19 04:34 Baso % (Auto) 0.7 % (0.0-1.8) 08/20/19 04:34 Lymph # 1.8 K/mm3 (1.2-5.4) 08/20/19 04:34 [place] # 0.4 K/mm3 (0.0-0.8) 08/20/19 04:34 Eos # 0.1 K/mm3 (0.0-0.4) 08/20/19 04:34 Baso # 0.1 K/mm3 (0.0-0.1) 08/20/19 04:34 Seg Neutrophils % 68.8 % (40.0-70.0) 08/20/19 04:34 Seg Neutrophils # 5.1 K/mm3 (1.8-7.7) 08/20/19 04:34 Sodium 139 mmol/L (137-145) 08/20/19 04:34 Potassium 5.8 mmol/L (3.6-5.0) H D 08/20/19 04:34 Chloride 106.3 mmol/L (98-107) 08/20/19 04:34 Carbon Dioxide 22 mmol/L (22-30) 08/20/19 04:34 Anion Gap 17 mmol/L 08/20/19 04:34 BUN 32 mg/dL (9-20) H 08/20/19 04:34 Creatinine 3.0 mg/dL (0.8-1.5) H 08/20/19 04:34 Estimated GFR 31 ml/min 08/20/19 04:34 BUN/Creatinine Ratio 11 % 08/20/19 04:34 Glucose 144 mg/dL (75-100) H 08/20/19 04:34 POC Glucose 89 (70-105) 08/20/19 06:01 Calcium 9.1 mg/dL (8.4-10.2) 08/20/19 04:34 Total Bilirubin < 0.20 mg/dL (0.1-1.2) 08/20/19 04:34 AST 19 units/L (5-40) 08/20/19 04:34 ALT 15 units/L (7-56) 08/20/19 04:34 Alkaline Phosphatase 77 units/L (35-129) 08/20/19 04:34 Total Protein 6.8 g/dL (6.3-8.2) 08/20/19 04:34 Albumin 3.9 g/dL (3.9-5) 08/20/19 04:34 Albumin/Globulin Ratio 1.3 % 08/20/19 04:34 Lipase 39 units/L (13-60) 08/20/19 04:34 Urine Color Straw (Yellow) 08/20/19 04:20 Urine Turbidity Clear (Clear) 08/20/19 04:20 Urine pH 6.0 (5.0-7.0) 08/20/19 04:20 Ur Specific [place] 1.011 (1.003-1.030) 08/20/19 04:20 Urine Protein >500 mg/dL (Negative) 08/20/19 04:20 Urine Glucose (UA) Neg mg/dL (Negative) 08/20/19 04:20 Urine Ketones Neg mg/dL (Negative) 08/20/19 04:20 Urine Blood Neg (Negative) 08/20/19 04:20 Urine Nitrite Neg (Negative) 08/20/19 04:20 Urine Bilirubin Neg (Negative) 08/20/19 04:20 Urine Urobilinogen < 2.0 mg/dL (<2.0) 08/20/19 04:20 Ur Leukocyte Esterase Neg (Negative) 08/20/19 04:20 Urine WBC (Auto) 2.0 /HPF (0.0-6.0) 08/20/19 04:20 Urine RBC (Auto) 6.0 /HPF (0.0-6.0) 08/20/19 04:20 U Epithel Cells (Auto) < 1.0 /HPF (0-13.0) 08/20/19 04:20 Assessment and Plan Assessment and plan: Patient is a 28 year old male with past medical hx of insulin-dependent diabetes since age 4 who was brought to the ED via EMS on account of low BG and AMS. He was recently discharged from the hospital with the same condition and adjusted his insulin downward. At the time of my visit in the ED the patient was still very hypertensive and again hypoglycemia with blood sugar of 46. He denies any chest pain, nausea, vomiting or diarrhea. He states that he was told 2 months ago in [place] that his blood pressure was high and he was supposed to start medication. He moved to the [facility] 3 weeks ago. He states to his knowledge that his kidney function is normal. He denies any loss of weight, but states that he has had poor PO intake. At this point, considering the persistently hypoglycemia with NPH, Especially in the early hours of the morning, I believe the patient is best served to stay on Sliding scale and keep a diary of his insulin consumption. He can have this revisited with his primary care physician Will monitor overnight on sliding scale and see what severity we should discharge him in am. IDDM type 1 with hypoglycemia -on hypoglycemic protocol -at home, pt takes novolin 70/30 15u in am and 20u at night -will place him on humulin 70/30 10u BID and SSI since he's DM1 and it's recommended not to entirely discontinue insulin in type 1 DM pts. 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
[2019-08-20] MEDS: INSULIN LISPRO 100 UNIT/ML SUB-Q SCH ×4 (07:53→22:12)
[2019-08-20] MEDS ORDERED: ONDANSETRON 4 MG/2 ML INJ IV PRN (08:00)
[2019-08-20] MEDS ORDERED: ACETAMINOPHEN 325 MG TAB PO PRN (08:00)
[2019-08-20] MEDS ORDERED: DEXTROSE 50% IN WATER (25GM) 50 ML SYRINGE IV PRN (08:00)
--- NOTE | 2019-08-20 08:02 | Consultation ---
History of Present Illness - Reason for Consult Consult date: 08/20/19 acute renal failure, chronic renal failure, hyperkalemia - History of Present Illness The pt is a 28 YO male with history significant for type 1 diabetes since age 4, HTN and CKD who [facility] with AMS and hypoglycemia. He was recently treated and discharged from this facility yesterday for the same condi tion after the Insulin dose was decreased. EMS was called and patient was found blood sugar in the 20s. He denies any chest pain, nausea, vomiting, diarrhea, fever, chills, rash, leg swelling or weakness. Initial BP was 181/116. Nephrology was consulted for further evaluation. Past History Past Medical History: diabetes, hypertension, renal failure Medications and Allergies Allergies Allergy/AdvReac Type Severity Reaction Status Date / Time No Known Allergies Allergy Verified 08/18/19 06:38 Home Medications Medication Instructions Recorded Confirmed Last Taken Type Insulin NPH Hum/Reg Insulin Hm 15 units SUB-Q BID #2 vial 08/19/19 08/20/19 Unknown Rx [Novolin 70-30 100 Unit/ml Vial] amLODIPine 10 mg PO DAILY #30 tablet 08/19/19 08/20/19 Unknown Rx carvediloL [Coreg] 25 mg PO BID #60 tablet 08/19/19 08/20/19 Unknown Rx Active Meds: Active Medications Acetaminophen (Tylenol) 650 mg PO Q4H PRN PRN Reason: Pain MILD(1-3)/Fever >100.5/KLEIN Amlodipine Besylate (Amlodipine) 10 mg PO DAILY SUZANNA Carvedilol (Coreg) 25 mg PO BID SUZANNA Dextrose (D50w (25gm) Syringe) 50 ml IV Q30MIN PRN; Protocol PRN Reason: Hypoglycemia Insulin Human Lispro (Humalog) 0 unit SUB-Q ACHS SUZANNA; Protocol Last Admin: 08/20/19 07:53 Dose: Not Given Documented by: Ondansetron HCl (Zofran) 4 mg IV Q8H PRN PRN Reason: Nausea And Vomiting Sodium Chloride (Sodium Chloride Flush Syringe 10 Ml) 10 ml IV BID SUZANNA Sodium Chloride (Sodium Chloride Flush Syringe 10 Ml) 10 ml IV PRN PRN PRN Reason: LINE FLUSH Last Admin: 08/20/19 07:36 Dose: 10 ml Documented by: Review of Systems Constitutional: no weight loss, no weight gain, no fever, no chills, no anorexia, no fatigue, no weakness, no poor appetite Cardiovascular: no chest pain, no edema, no syncope, no lightheadedness, no shortness of breath, no high blood pressure, no leg edema Respiratory: no cough, no hemoptysis, no shortness of breath Gastrointestinal: no abdominal pain, no nausea, no vomiting, no diarrhea, no melena Genitourinary Male: no dysuria, no hematuria Rectal: no bleeding Musculoskeletal: no morning stiffness, no muscle weakness, no muscle cramps Integumentary: no rash, no wounds Neurological: change in mentation, confusion, no convulsions, no aphasia Exam - Vital Signs Vital signs: Vital Signs Pulse Ox 100 08/20/19 03:57 - General Appearance General appearance: well-developed, well-nourished, appears stated age, other (not in distress) EENT: ATNC, PERRL, hearing intact, vision intact Neck: Present: neck supple, trachea midline Respiratory: Clear to Ascultation Heart: regular, S1S2, no murmurs Gastrointestinal: Present: normoactive bowel sounds. Absent: tenderness, distended Integumentary: no rash, warm and dry Neurologic: no focal deficit, no asterixis, alert and oriented x3 Results - Lab Results 08/21/19 03:30 08/21/19 03:30 Most recent lab results Calcium 9.1 mg/dL (8.4-10.2) 08/20/19 04:34 Assessment and Plan 1. Acute kidney injury: Mild SUMIT superimposed on CKD stage 3. CKD secondary to diabetic nephropathy. UA showed proteinuria. Renal US suggestive of CKD. Monitor renal function. Renal prognosis is guarded. Avoid nephrotoxic agents. Meds dosage based on GFR. 2. FEN: Hyperkalemia, kayexalate ordered. Anion-gap Metabolic acidosis, monitor. Monitor lytes. 3. Non-nephrotic range Proteinuria: Secondary to diabetic nephropathy. Start ACEI / ARB once he is established with a physician. 4. Encephalopathy: Improved. 5. DM type 1: Admitted with hypoglycemia. 6. Uncontrolled Hypertension: Continue Carvedilol and Amlodipine. Monitor BP. 7. Microcytic anemia: POA.
[2019-08-20] MEDS ORDERED: carvediloL 25 MG TAB ONE (08:54)
[2019-08-20] MEDS ORDERED: amLODIPine 10 MG TAB ONE (08:54)
[2019-08-20] MEDS: amLODIPine 10 MG TAB PO SCH ×2 (08:58→09:32)
[2019-08-20] MEDS: carvediloL 25 MG TAB PO SCH ×3 (08:58→22:19)
[2019-08-20 16:08] LABS: Calcium 8.9 mg/dL (8.4-10.2)
[2019-08-20] MEDS ORDERED: SODIUM POLYSTYRENE 15 GM/60 ML ORAL LIQD PO SCH (18:18)
[2019-08-20] MEDS ORDERED: hydrALAZINE 20 MG/1 ML INJ IV PRN (18:23)
[2019-08-20] MEDS ORDERED: INSULIN NPH/REGULAR 70/30 INJ SUB-Q SCH (22:00)
[2019-08-21 03:44] LABS: Hematocrit 31.1 % (35.5-45.6); Hemoglobin 9.7 gm/dl (11.8-15.2); Mean Corpuscular HGB Conc 31 % (32-34); Mean Corpuscular Volume 71 fl (84-94); Platelet Count 227 K/mm3 (140-440); Red Blood Count 4.39 M/mm3 (3.65-5.03); Red Cell Distribution Width 16.1 % (13.2-15.2)
[2019-08-21 04:06] LABS: Calcium 9.1 mg/dL (8.4-10.2)
[2019-08-21] MEDS: INSULIN LISPRO 100 UNIT/ML SUB-Q SCH ×2 (07:57→12:25)
[2019-08-21] MEDS: amLODIPine 10 MG TAB PO SCH (09:19)
[2019-08-21] MEDS: carvediloL 25 MG TAB PO SCH (09:19)
--- NOTE | 2019-08-21 09:58 | Progress Note ---
Assessment and Plan 1. Acute kidney injury: Mild SUMIT superimposed on CKD stage 3. CKD secondary to diabetic nephropathy. UA showed proteinuria. Renal US suggestive of CKD. Renal function is stable. Monitor renal function. Renal prognosis is guarded. Avoid nephrotoxic agents. Meds dosage based on GFR. 2. FEN: Hyperkalemia, improved. Anion-gap Metabolic acidosis, monitor. Monitor lytes. 3. Non-nephrotic range Proteinuria: Secondary to diabetic nephropathy. 4. Encephalopathy: Improved. 5. DM type 1: Admitted with hypoglycemia. 6. Uncontrolled Hypertension: Continue Carvedilol and Amlodipine. Monitor BP. 7. Microcytic anemia: POA. If discharged f/u with me in 2 weeks. Examination: General appearance: well-developed, well-nourished, appears stated age, not in distress HEENT: ATNC, SHANTE, hearing intact, vision intact Neck: neck supple, trachea midline Respiratory: Clear to Ascultation Heart: regular, S1S2, no murmurs Gastrointestinal: normoactive bowel sounds, not tender, not distended Integumentary: no rash, warm and dry Neurologic: no focal deficit, no asterixis, alert and oriented x3 Ext: No edema Subjective Date of service: 08/21/19 Interval history: Patient was seen and examined at the bedside. Doing ok. Objective - Vital Signs Vital signs: Vital Signs - 12hr 08/20/19 08/20/19 08/21/19 22:00 22:12 04:26 Temperature 98.6 F Pulse Rate 92 H Pulse Rate [ 84 Apical] Respiratory 16 Rate Blood Pressure 140/78 O2 Sat by Pulse 98 100 Oximetry 08/21/19 09:19 Temperature Pulse Rate Pulse Rate [ Apical] Respiratory Rate Blood Pressure 168/103 O2 Sat by Pulse Oximetry - Lab 08/21/19 03:30 08/21/19 03:30 Most recent lab results Calcium 9.1 mg/dL (8.4-10.2) 08/21/19 03:30 Medications & Allergies - Medications Allergies/Adverse Reactions: Allergies No Known Allergies Allergy (Verified 08/18/19 06:38) Home Medications: Home Medications Medication Instructions Recorded Confirmed Last Taken Type Insulin NPH Hum/Reg Insulin Hm 15 units SUB-Q BID #2 vial 08/19/19 08/20/19 Unknown Rx [Novolin 70-30 100 Unit/ml Vial] amLODIPine 10 mg PO DAILY #30 tablet 08/19/19 08/20/19 Unknown Rx carvediloL [Coreg] 25 mg PO BID #60 tablet 08/19/19 08/20/19 Unknown Rx Active Medications: Generic Name Dose Route Start Last Admin Trade Name Freq PRN Reason Stop Dose Admin Acetaminophen 650 mg 08/20/19 08:00 Tylenol PO Q4H PRN Pain MILD(1-3)/Fever >100.5/KLEIN Amlodipine Besylate 10 mg 08/20/19 10:00 08/21/19 09:19 Amlodipine PO 10 mg DAILY SUZANNA Administration Carvedilol 25 mg 08/20/19 10:00 08/21/19 09:19 Coreg PO 25 mg BID SUZANNA Administration Dextrose 50 ml 08/20/19 08:00 08/21/19 01:25 D50w (25gm) Syringe IV 50 ml Q30MIN PRN Administration Hypoglycemia Protocol Hydralazine HCl 10 mg 08/20/19 18:23 Apresoline IV Q4HR PRN HTN SBP>160 OR DBP>105 Insulin Human Isoph/Insulin Regular 7 unit 08/21/19 10:00 Humulin 70/30 SUB-Q BID [facility] Insulin Human Lispro 0 unit 08/20/19 08:00 08/21/19 07:57 Humalog SUB-Q Not Given ACHS [facility] Protocol Ondansetron HCl 4 mg 08/20/19 08:00 Zofran IV Q8H PRN Nausea And Vomiting Sodium Chloride 10 ml 08/20/19 10:00 08/21/19 09:20 Sodium Chloride Flush Syringe 10 Ml IV 10 ml BID SUZANNA Administration Sodium Chloride 10 ml 08/20/19 07:31 08/20/19 07:36 Sodium Chloride Flush Syringe 10 Ml IV 10 ml PRN PRN Administration LINE FLUSH
[2019-08-21] MEDS ORDERED: INSULIN NPH/REGULAR 70/30 INJ SUB-Q SCH (10:00)
--- NOTE | 2019-08-21 12:32 | Discharge Summary ---
Providers - Providers Date of Admission: 08/20/19 07:31 Attending physician: VLADISLAV ZAVALA MD 08/20/19 05:33 Consult to Physician [CONS] Stat Comment: Dr. Palacios spoke with Dr. Griffin @ 0530 Consulting Provider: MAJOR GRIFFIN Physician Instructions: Reason For Exam: hyperkalemia 08/20/19 17:57 Consult to Dietitian/Nutrition [CONS] Routine Physician Instructions: Reason For Exam: Reason for Consult: Poor oral intake Primary care physician: [facility]INE [facility] Hospitalization Reason for admission: Hyperglycemia Condition: Stable Hospital course: Patient is a 28 year old male with past medical hx of insulin-dependent diabetes since age 4 who was brought to the ED via EMS on account of low BG and AMS. He was recently discharged from the hospital with the same condition and adjusted his insulin downward. At the time of my visit in the ED the patient was still very hypertensive and again hypoglycemia with blood sugar of 46. He denies any chest pain, nausea, vomiting or diarrhea. He states that he was told 2 months ago in [place] that his blood pressure was high and he was supposed to start medication. He moved to the [facility] 3 weeks ago. He states to his knowledge that his kidney function is normal. He denies any loss of weight, but states that he has had poor PO intake. At this point, considering the persistently hypoglycemia with NPH, Especially in the early hours of the morning, I believe the patient is best served to stay on Sliding scale and keep a diary of his insulin consumption. He can have this revisited with his primary care physician Patient likely experiencing Somogyi effect this is complicated with his poor oral intake. Education was provided to the patient. I told him to discontinue Humulin 70/30 and use sliding scale at this time and keep a diary which she will take to his primary care physician for evaluation of adjustment of his insulin therapy. He is also to follow-up with health claims examiner outpatient. The patient will likely benefit from JUDY or ARB therapy for blood pressure control but will defer to nephrology IDDM type 1 with hypoglycemia Hyperkalemia HTN urgency SUMIT likely secondary to diabetic nephropathy/ATN Metabolic acidosis Chronic microcytic anemia Disposition: TO HOME OR SELFCARE Time spent for discharge: 34 minutes Core Measure Documentation - Palliative Care Palliative Care/ Comfort Measures: Not Applicable - Core Measures Any of the following diagnoses?: none Exam - Physical Exam Narrative exam: VITAL SIGNS: Reviewed. GENERAL: The patient appears normally developed, Vital signs as documented. HEAD: No signs of head trauma. EYES: Pupils are equal. Extraocular motions intact. EARS: Hearing grossly intact. MOUTH: Oropharynx is normal. NECK: No adenopathy, no JVD. CHEST: Chest with clear breath sounds bilaterally. No wheezes, rales, or rhonchi. CARDIAC: Regular rate and rhythm. S1 and S2, without murmurs, gallops, or rubs. VASCULAR: No Edema. Peripheral pulses normal and equal in all extremities. ABDOMEN: Soft, non tender and non distended. No rebound or guarding, and no masses palpated. Bowel Sounds normal. MUSCULOSKELETAL: Good range of motion of all major joints. Extremities without clubbing, cyanosis or edema. NEUROLOGIC EXAM: Alert and oriented x 3 No focal sensory or strength deficits. Speech normal. Follows commands. PSYCHIATRIC: Mood normal. SKIN: detial exam as documented in skin assessment - Constitutional Vitals: Temp Pulse Resp BP Pulse Ox 98.6 F 92 H 16 168/103 100 08/21/19 04:26 08/21/19 04:26 08/21/19 04:26 08/21/19 09:19 08/21/19 04:26 Plan Activity: advance as tolerated, fall precautions Diet: diabetic Additional Instructions: keep a diary of insulin and diet intake, take this to your doctors appointment Follow up with: [facility] [Outside] - 7 Days MAJOR GRIFFIN MD [Staff Physician] - 7 Days Prescriptions: Insulin Regular, Human [HumuLIN R] 0 unit SQ AC #1 vial
[2019-08-21 13:25] VITALS: BP 161/103
== END 2019-08-21 14:00 | disposition home or self-care (01) ==
LOC: ED 03:52 → 3A 07:31
PROVIDERS: ADMIT Internal Medicine; ATTEND Internal Medicine
DX: E10.649 Type 1 diabetes mellitus with hypoglycemia without coma (principal); E87.5 Hyperkalemia; R11.10 Vomiting, unspecified; I12.9 Hypertensive chronic kidney disease with stage 1 through stage 4 chronic kidney disease, or unspecified chronic kidney disease; D50.9 Iron deficiency anemia, unspecified; I16.0 Hypertensive urgency; E10.22 Type 1 diabetes mellitus with diabetic chronic kidney disease; N18.3 Chronic kidney disease, stage 3 (moderate)
CPT/HCPCS: 36415; 71046; 80048; 80053; 81001; 82947; 82962; 83690; 85025; 85027; 93005; 93010; 94640; 94644; 96361; 96372; 96374; 96375; 96376; 99291; G0378; J0610; J2405; J7030; J1815

== ENCOUNTER 2019-11-03 10:34 | Emergency (ER) | payer OTHER ==
--- NOTE | 2019-11-03 12:20 | Event Note ---
ED Screening Note Date of service: 11/03/19 Time: 12:16 ED Screening Note: 29 y o male presents with cough and myalgia x 4 days also cc of fever HX: HTN recent dx 1 month ago and hasnt taken meds today, on 2 meds cant recall meds This initial assessment/diagnostic orders/clinical plan/treatment(s) is/are subject to change based on patients health status, clinical progression and re- assessment by fellow clinical providers in the ED. Further treatment and workup at subsequent clinical providers discretion. Patient/guardian urged not to elope from the ED as their condition may be serious if not clinically assessed and managed. Initial orders include: cxr clonidine 0.2 mg acc eval
[2019-11-03 12:21] VITALS: BP 190/115
--- NOTE | 2019-11-03 12:46 | XRay Report ---
CHEST 2 VIEWS INDICATION / CLINICAL INFORMATION: cough. COMPARISON: 08/20/2019 FINDINGS: SUPPORT DEVICES: None. HEART / MEDIASTINUM: No significant abnormality. LUNGS / PLEURA: No significant pulmonary or pleural abnormality. No pneumothorax. ADDITIONAL FINDINGS: No significant additional findings. IMPRESSION: 1. No acute findings. Signer Name: Maxwell Shay MD Signed: 11/03/2019 12:41 PM Workstation Name: [id number]
== END 2019-11-03 15:09 | disposition left against medical advice (07) ==
LOC: ED 10:34
DX: J11.1 Influenza due to unidentified influenza virus with other respiratory manifestations (principal); Z53.21 Procedure and treatment not carried out due to patient leaving prior to being seen by health care provider
CPT/HCPCS: 71046

== ENCOUNTER 2021-01-14 13:34 | Emergency (ER) | payer SELFPAY ==
[2021-01-14] MEDS ORDERED: IPRATROPIUM/ALBUTEROL SULFATE 3 ML AMPUL.NEB IH ONE (15:44)
[2021-01-14] MEDS ORDERED: amLODIPine 5 MG TAB PO ONE (15:46)
[2021-01-14] MEDS ORDERED: carvediloL 25 MG TAB PO ONE (15:46)
--- NOTE | 2021-01-14 15:46 | Emergency Department Report ---
HPI - General Chief Complaint: Upper Respiratory Infection Time Seen by Provider: 01/14/21 15:22 - HPI HPI: This is a 30-year-old male who presents to the emergency department with a complaint of a 3-day history of chest congestion. He does have a mixed dry and productive cough. The patient works at the [employer] and was told that he cannot come back to work until his symptoms are clear. He denies any fever, chest pain, lower extremity swelling, shortness of breath, back pain, nausea, vomiting or diaphoresis. He has been taking some Mucinex and Robitussin without any relief. He has a past medical history of diabetes and hypertension. He pr esents with an elevated blood pressure and admits that he has run out of his medications. No recent travel or sick contacts at home. He denies any tobacco or illicit drug use. ED Past Medical Hx - Past Medical History Previous Medical History?: Yes Hx Hypertension: Yes Hx Congestive Heart Failure: No Hx Diabetes: Yes Hx Asthma: No Hx COPD: No - Surgical History Past Surgical History?: No - Social History Smoking Status: Never Smoker Substance Use Type: None - Medications Home Medications: Home Medications Medication Instructions Recorded Confirmed Last Taken Type Insulin Regular, Human [HumuLIN R] 0 unit SQ AC #1 vial 08/21/19 Unknown Rx Albuterol Mdi (or & Nicu Only) 2 puff IH QID PRN #8.5 gram 01/14/21 Unknown Rx [ProAir HFA Inhaler] Azithromycin [Zithromax Z-LAI] 250 mg PO DAILY #6 tab 01/14/21 Unknown Rx amLODIPine 10 mg PO DAILY #30 tablet 01/14/21 Unknown Rx carvediloL [Coreg] 25 mg PO BID #60 tablet 01/14/21 Unknown Rx ED Review of Systems ROS: Stated complaint: COLD SYMPTOMS Other details as noted in HPI Comment: All other systems reviewed and negative Constitutional: denies: chills, fever Eyes: denies: eye pain, vision change ENT: denies: ear pain, throat pain Respiratory: cough, wheezing. denies: shortness of breath Cardiovascular: denies: chest pain, palpitations Gastrointestinal: denies: abdominal pain, vomiting Genitourinary: denies: dysuria, discharge Musculoskeletal: denies: back pain, arthralgia Skin: denies: rash, lesions Neurological: denies: headache, weakness Physical Exam - Physical Exam Vital Signs: Vital Signs 01/14/21 13:49 Temperature 98.2 F Pulse Rate 98 H Respiratory 16 Rate Blood Pressure 180/114 O2 Sat by Pulse 99 Oximetry Physical Exam: GENERAL: The patient is well-developed well-nourished. HENT: Normocephalic. Atraumatic. Patient has moist mucous membranes. EYES: Extraocular motions are intact. NECK: Supple. Trachea is midline. CHEST/LUNGS: There is some rhonchi heard bilaterally. No tachypnea or accessory muscle use. A productive sounding cough heard during examination. There is no respiratory distress noted. HEART/CARDIOVASCULAR: Regular. There is no tachycardia. There is no murmur. ABDOMEN: Abdomen is soft, nontender. Patient has normal bowel sounds. There is no abdominal distention. SKIN: Skin is warm and dry. NEURO: The patient is awake, alert, and oriented. The patient is cooperative. The patient has no focal neurologic deficits. Normal speech. MUSCULOSKELETAL: There is no tenderness or deformity. There is no limitation range of motion. ED Course Vital Signs 01/14/21 13:49 Temperature 98.2 F Pulse Rate 98 H Respiratory 16 Rate Blood Pressure 180/114 O2 Sat by Pulse 99 Oximetry ED Medical Decision Making - Lab Data Result diagrams: 01/14/21 16:09 01/14/21 16:09 Lab Results 01/14/21 01/14/21 Range/Units 16:09 16:09 WBC 10.8 (4.5-11.0) K/mm3 RBC 4.35 (3.65-5.03) M/mm3 Hgb 9.6 L (11.8-15.2) gm/dl Hct 31.0 L (35.5-45.6) % MCV 71 L (84-94) fl MCH 22 L (28-32) pg MCHC 31 L (32-34) % RDW 15.7 H (13.2-15.2) % Plt Count 237 (140-440) K/mm3 Lymph % (Auto) 13.6 (13.4-35.0) % [place] % (Auto) 3.1 (0.0-7.3) % Eos % (Auto) 0.7 (0.0-4.3) % Baso % (Auto) 0.7 (0.0-1.8) % Lymph # (Auto) 1.5 (1.2-5.4) K/mm3 [place] # (Auto) 0.3 (0.0-0.8) K/mm3 Eos # (Auto) 0.1 (0.0-0.4) K/mm3 Baso # (Auto) 0.1 (0.0-0.1) K/mm3 Seg Neutrophils % 81.9 H (40.0-70.0) % Seg Neutrophils # 8.9 H (1.8-7.7) K/mm3 Sodium 135 L (137-145) mmol/L Potassium 4.7 (3.6-5.0) mmol/L Chloride 102.3 (98-107) mmol/L Carbon Dioxide 19 L (22-30) mmol/L Anion Gap 18 mmol/L BUN 41 H (9-20) mg/dL Creatinine 5.8 H (0.8-1.3) mg/dL Estimated GFR 14 ml/min BUN/Creatinine Ratio 7 % Glucose 177 H (75-100) mg/dL Calcium 8.9 (8.4-10.2) mg/dL - Radiology Data Radiology results: image reviewed interpreted by me: Chest x-ray does not show any acute process. There are no pleural effusions, obvious pneumonia and there is no pneumothorax. No significant cardiomegaly. - Medical Decision Making This patient presents with a few days of chest congestion. Patient does have some rhonchi heard bilaterally. However, there is no tachypnea, conversational dyspnea, accessory muscle use, or signs of respiratory distress. Chest x-ray does not show any pneumonia, pleural effusions, pneumothorax, or any other acute process. The patient's labs shows some anemia of chronic kidney disease, but not at a level that requires transfusion. The patient also has some renal insufficiency with a GFR of about 15. I spoke with the patient and he says that the laboratory values found today are consistent with his recent kidney function and he follows with a personal lines insurance advisor, and has an appointment coming up. The patient was given a DuoNeb breathing treatment with albuterol and Atrovent. Upon reevaluation he says he is feeling improved. There is some decreased rhonchi heard. X-ray does not show any pneumonia. The patient is afebrile. There is no leukocytosis. The patient does not appear to have pneumonia. Therefore, his symptoms appear most consistent with bronchitis. He will be given an albuterol inhaler and was given a Z-Lai. The patient presents with elevated blood pressure but admits to some medication noncompliance as he ran out of his Coreg and amlodipine. He was given a dose of each here and had great improvement in his blood pressure. He will be given a refill of his blood pressure medications. We discussed staying away from foods that are high in salt and caffeinated products and keeping a blood pressure log. Critical Care Time: No Critical care attestation.: If time is entered above; I have spent that time in minutes in the direct care of this critically ill patient, excluding procedure time. ED Disposition Clinical Impression: Bronchitis Hypertension Qualifiers: Hypertension type: essential hypertension Qualified Code(s): I10 - Essential (primary) hypertension CKD (chronic kidney disease) Qualifiers: Chronic kidney disease stage: unspecified stage Qualified Code(s): N18.9 - Chronic kidney disease, unspecified Disposition: TO HOME OR SELFCARE Is pt being admited?: No Condition: Stable Instructions: Chronic Kidney Disease, Adult, Hypertension, Adult, Acute Bronchitis, Adult, Chronic Bronchitis (ED), Hypertension (ED) Additional Instructions: Please follow-up with your primary care physician and your personal lines insurance advisor. Due to your kidney disease, please avoid taking any NSAIDs such as Aleve, Motrin, Advil, ibuprofen, naproxen. I am giving you a prescription for your blood pressure medications. Please take them as prescribed. Try to stay away from foods that are high in salt and caff einated products. Keep a blood pressure log. Return to the emergency department with any worsening of your symptoms, new or concerning symptoms not addressed during this current emergency department visit, or with any acute distress. Prescriptions: amLODIPine 10 mg PO DAILY #30 tablet carvediloL [Coreg] 25 mg PO BID #60 tablet Albuterol Mdi (or & Nicu Only) [ProAir HFA Inhaler] 2 puff IH QID PRN #8.5 gram PRN Reason: Shortness Of Breath Azithromycin [Zithromax Z-LAI] 250 mg PO DAILY #6 tab Referrals: PRIMARY CARE, [Primary Care Provider] - 2-3 Days Acute Care Physician, Your [Other] - 2-3 Days Time of Disposition: 17:35
--- NOTE | 2021-01-14 16:04 | XRay Report ---
CHEST 2 VIEWS INDICATION / CLINICAL INFORMATION: cough. COMPARISON: None available. FINDINGS: SUPPORT DEVICES: None. HEART / MEDIASTINUM: No significant abnormality. LUNGS / PLEURA: No significant pulmonary or pleural abnormality. No pneumothorax. ADDITIONAL FINDINGS: No significant additional findings. IMPRESSION: 1. No acute findings. Signer Name: Hossein Mason MD Signed: 01/14/2021 4:00 PM Workstation Name: [id number]
[2021-01-14 16:43] LABS: Basophils # (Auto) 0.1 K/mm3 (0.0-0.1); Basophils % (Auto) 0.7 % (0.0-1.8); Eosinophils # (Auto) 0.1 K/mm3 (0.0-0.4); Eosinophils % (Auto) 0.7 % (0.0-4.3); Hemoglobin 9.6 gm/dl (11.8-15.2); Lymphocytes # (Auto) 1.5 K/mm3 (1.2-5.4); Lymphocytes % (Auto) 13.6 % (13.4-35.0); Mean Corpuscular HGB Conc 31 % (32-34); Mean Corpuscular Volume 71 fl (84-94); Monocytes # (Auto) 0.3 K/mm3 (0.0-0.8); Monocytes % (Auto) 3.1 % (0.0-7.3); Platelet Count 237 K/mm3 (140-440); Red Blood Count 4.35 M/mm3 (3.65-5.03); Red Cell Distribution Width 15.7 % (13.2-15.2)
[2021-01-14 16:45] LABS: Calcium 8.9 mg/dL (8.4-10.2)
[2021-01-14 18:19] VITALS: BP 150/95
== END 2021-01-14 18:19 | disposition home or self-care (01) ==
LOC: ED 13:34
DX: I12.9 Hypertensive chronic kidney disease with stage 1 through stage 4 chronic kidney disease, or unspecified chronic kidney disease (principal); N18.9 Chronic kidney disease, unspecified; E11.22 Type 2 diabetes mellitus with diabetic chronic kidney disease; J40 Bronchitis, not specified as acute or chronic; Z79.899 Other long term (current) drug therapy
CPT/HCPCS: 36415; 71046; 80048; 85025; 94640; 94644

== ENCOUNTER 2021-06-05 22:36 | Inpatient (IN) | payer SELFPAY ==
[2021-06-05] MEDS ORDERED: METOCLOPRAMIDE 10 MG/2 ML INJ IV ONE (22:46)
--- NOTE | 2021-06-05 22:48 | Emergency Department Report ---
ED General Adult HPI - General Stated complaint: LOW BLOOD SUGAR Time Seen by Provider: 06/05/21 22:41 - History of Present Illness Initial comments: Patient was brought in by EMS due to altered mental status. This is the second time they run on this gentleman today for hypoglycemia. Reportedly, he had eaten something bad and had food poisoning. He had GI upset with nausea and vomiting. He was not able to eat. He was found earlier to be hypoglycemic. EMS administered treatment. His sugar had improved. His mentation improved. He was told to eat. Unfortunately, he did not eat. He still took his next dose of insulin. Family called EMS again due to altered mental status. His sugar "read low." They administered D50. They established an IV in the left ankle. They brought the patient here for evaluation. They did administer Zofran in addition. Upon arrival, patient states that he just does not feel well. He is however awake and conversant. He states that he believes that he had food poisoning from something that he ate. He has not had hematemesis or coffee-ground emesis. There is no melenic stool. He states that has generalized abdominal cramps but no sharp pain or stabbing pain. He has not been out of the country. Is not been on antibiotics lately. - Related Data Previous Rx's Medication Instructions Recorded Last Taken Type Insulin Regular, Human [HumuLIN R] 0 unit SQ AC #1 vial 08/21/19 Unknown Rx Albuterol Mdi (or & Nicu Only) 2 puff IH QID PRN #8.5 gram 01/14/21 Unknown Rx [ProAir HFA Inhaler] Azithromycin [Zithromax Z-LAI] 250 mg PO DAILY #6 tab 01/14/21 Unknown Rx amLODIPine 10 mg PO DAILY #30 tablet 01/14/21 Unknown Rx carvediloL [Coreg] 25 mg PO BID #60 tablet 01/14/21 Unknown Rx Allergies Allergy/AdvReac Type Severity Reaction Status Date / Time No Known Allergies Allergy Verified 08/18/19 06:38 ED Review of Systems ROS: Stated complaint: LOW BLOOD SUGAR Other details as noted in HPI Comment: All other systems reviewed and negative Constitutional: denies: fever Eyes: denies: vision change ENT: denies: throat pain Respiratory: denies: cough Cardiovascular: denies: chest pain Endocrine: denies: unexplained weight loss Gastrointestinal: as per HPI Genitourinary: denies: dysuria Musculoskeletal: denies: back pain Skin: denies: rash Neurological: denies: headache Hematological/Lymphatic: denies: easy bruising ED Past Medical Hx - Past Medical History Hx Hypertension: Yes Hx Congestive Heart Failure: No Hx Diabetes: Yes Hx Asthma: No Hx COPD: No - Family History Family history: diabetes, hypertension - Social History Smoking Status: Never Smoker Substance Use Type: None - Medications Home Medications: Home Medications Medication Instructions Recorded Confirmed Last Taken Type Insulin Regular, Human [HumuLIN R] 0 unit SQ AC #1 vial 08/21/19 Unknown Rx Albuterol Mdi (or & Nicu Only) 2 puff IH QID PRN #8.5 gram 01/14/21 Unknown Rx [ProAir HFA Inhaler] Azithromycin [Zithromax Z-LAI] 250 mg PO DAILY #6 tab 01/14/21 Unknown Rx amLODIPine 10 mg PO DAILY #30 tablet 01/14/21 Unknown Rx carvediloL [Coreg] 25 mg PO BID #60 tablet 01/14/21 Unknown Rx ED Physical Exam - General Limitations: Other (Pulse ox was noted and normal. Is not hypoxic.) General appearance: in no apparent distress, other ( Somnolent but arousable) - Head Head exam: Present: atraumatic, normocephalic, normal inspection - Eye Eye exam: Present: normal appearance, EOMI. Absent: scleral icterus - ENT ENT exam: Present: mucous membranes dry, normal external ear exam - Neck Neck exam: Present: normal inspection. Absent: meningismus - Respiratory Respiratory exam: Present: normal lung sounds bilaterally. Absent: respiratory distress - Cardiovascular Cardiovascular Exam: Present: regular rate, normal rhythm - GI/Abdominal GI/Abdominal exam: Present: soft. Absent: tenderness - Extremities Exam Extremities exam: Present: normal capillary refill - Back Exam Back exam: Absent: CVA tenderness (R), CVA tenderness (L) - Neurological Exam Neurological exam: Present: oriented X3, CN II-XII intact, other ( somnolent but arousable). Absent: motor sensory deficit - Psychiatric Psychiatric exam: Present: normal mood - Skin Skin exam: Present: warm, dry ED Course Vital Signs 06/05/21 06/05/21 06/05/21 22:58 23:00 23:04 Pulse Rate 59 L 57 L 54 L Respiratory 15 22 30 H Rate Blood Pressure 155/86 O2 Sat by Pulse 100 100 Oximetry 06/06/21 00:04 Pulse Rate 52 L Respiratory 14 Rate Blood Pressure 155/86 O2 Sat by Pulse 94 Oximetry - Reevaluation(s) Reevaluation #1: 06/05/21 22:25 EMS have been met upon arrival. Labs have been ordered. Reevaluation #2: 06/06/21 00:24 Accu-Chek is noted to be 29. Patient is conversant. D50 has been ordered. We will start the patient on a D10 drip. Reevaluation #3: 06/06/21 00:49 Labs have been reviewed with the patient. He states that he does not have dialysis does not have a fistula in. He states that we had talked to him about dialysis the last time he was here and he declined. Now, he states he would be willing to consider. Hospitalist was agreeable to admit. ED Medical Decision Making - Lab Data Result diagrams: 06/05/21 23:30 - Medical Decision Making Patient presents by EMS secondary to hypoglycemia. This has been recurrent. This is likely secondary to the fact that he has not really eaten, has had vomiting, and has taken ongoing doses of insulin. D10 was started. He will be hydrated. Patient does have hypokalemia and this will be addressed. Magnesium can be added on. Hospitalist agrees to admit. Again, patient does have evidence of renal disease. His last admission showed an elevated creatinine in the 4-5 range. According to his history now, he did not want dialysis then but is willing to consider at this time. Renal can be consulted but he does not need emergent dialysis tonight. Critical Care Time: No Critical care attestation.: If time is entered above; I have spent that time in minutes in the direct care of this critically ill patient, excluding procedure time. ED Disposition Clinical Impression: Hypoglycemia due to type 1 diabetes mellitus, Acute kidney injury, Hypokalemia CKD (chronic kidney disease) Qualifiers: Chronic kidney disease stage: unspecified stage Qualified Code(s): N18.9 - C hronic kidney disease, unspecified Disposition: 09 ADMITTED INPATIENT Is pt being admited?: Yes Does the pt Need Aspirin: No Condition: Stable Instructions: Diabetes Mellitus Type 2 in Adults (ED) Referrals: PRIMARY CARE, [Primary Care Provider] - 3-5 Days
[2021-06-06 00:07] LABS: Calcium 9.8 mg/dL (8.4-10.2)
[2021-06-06] MEDS ORDERED: DEXTROSE 50% IN WATER (25GM) 50 ML SYRINGE IV ONE (00:23)
[2021-06-06] MEDS ORDERED: POTASSIUM CHLORIDE ER 20 MEQ TAB PO ONE (00:57)
[2021-06-06] MEDS ORDERED: DEXTROSE 10% IN WATER 1,000 ML IV SCH (01:00)
[2021-06-06] MEDS ORDERED: METOCLOPRAMIDE 10 MG/2 ML INJ IV NR (01:06)
[2021-06-06] MEDS ORDERED: ACETAMINOPHEN 325 MG TAB PO PRN (01:24)
[2021-06-06] MEDS ORDERED: ONDANSETRON 4 MG/2 ML INJ IV PRN (01:24)
[2021-06-06] MEDS ORDERED: MORPHINE 4 MG/1 ML INJ IV PRN (01:24)
[2021-06-06] MEDS ORDERED: MAGNESIUM HYDROXIDE (MOM) ORAL LIQD UDC PO PRN (01:24)
[2021-06-06] MEDS ORDERED: MORPHINE 2 MG/1 ML INJ IV PRN (01:24)
[2021-06-06] MEDS: POTASSIUM CHLORIDE 10 MEQ 10 MEQ/100 ML BAG IV SCH ×2 (01:25→02:29)
--- NOTE | 2021-06-06 01:45 | History and Physical Report ---
History of Present Illness Date of examination: 06/06/21 Date of admission: 06/06/2021 Chief complaint: Altered Mental Status History of present illness: 30-year-old male with known history of diabetes mellitus brought into the emergency room via EMS for altered mental status. Patient had been evaluated a second time by EMS today for hypoglycemia. Was said to have been having nausea and vomiting and indicates he may have had some food poisoning earlier in the d ay. He was found to be hypoglycemic at the time and was given D50 and blood sugar was said to have improved. Unfortunately patient took his insulin without eating and therefore had another bout of hypoglycemia. D50 was again repeated and patient brought to the emergency room. Patient denies any fever or chills, no chest pain or shortness of breath, no headache or dizziness, no hematemesis and no coffee-ground emesis. Denies any bright red blood per rectum. He had abdominal cramping earlier which has resolved. Work-up in the emergency room today significant findings were that of potassium of 3.0, BUN of 74 and creatinine of 7.4. Patient has been admitted with hypoglycemia, hypokalemia and acute on chronic kidney failure. Past History Past Medical History: diabetes, hypertension Social history: no significant social history Family history: no significant family history Medications and Allergies Allergies Allergy/AdvReac Type Severity Reaction Status Date / Time No Known Allergies Allergy Verified 08/18/19 06:38 Home Medications Medication Instructions Recorded Confirmed Last Taken Type Insulin Regular, Human [HumuLIN R] 0 unit SQ AC #1 vial 08/21/19 Unknown Rx Albuterol Mdi (or & Nicu Only) 2 puff IH QID PRN #8.5 gram 01/14/21 Unknown Rx [ProAir HFA Inhaler] Azithromycin [Zithromax Z-LAI] 250 mg PO DAILY #6 tab 01/14/21 Unknown Rx amLODIPine 10 mg PO DAILY #30 tablet 01/14/21 Unknown Rx carvediloL [Coreg] 25 mg PO BID #60 tablet 01/14/21 Unknown Rx Active Meds: Active Medications Acetaminophen (Acetaminophen 325 Mg Tab) 650 mg PO Q4H PRN PRN Reason: Pain MILD(1-3)/Fever >100.5/KLEIN Dextrose (D10w) 1,000 mls @ 100 mls/hr IV DIRECT SUZANNA Last Admin: 06/06/21 01:25 Dose: 100 mls/hr Documented by: Potassium Chloride (Kcl 10meq/100ml) 10 meq in 100 mls @ 100 mls/hr IV Q1H SUZANNA Stop: 06/06/21 02:59 Last Admin: 06/06/21 01:25 Dose: 100 mls/hr Documented by: Magnesium Hydroxide (Magnesium Hydroxide (Mom) Oral Liqd Udc) 30 ml PO Q4H PRN PRN Reason: Constipation Metoclopramide HCl (Metoclopramide 10 Mg/2 Ml Inj) 10 mg IV ONCE NR Stop: 06/06/21 02:59 Last Admin: 06/06/21 01:25 Dose: 10 mg Documented by: Morphine Sulfate (Morphine 2 Mg/1 Ml Inj) 2 mg IV Q4H PRN PRN Reason: Pain, Moderate (4-6) Morphine Sulfate (Morphine 4 Mg/1 Ml Inj) 4 mg IV Q4H PRN PRN Reason: Pain , Severe (7-10) Ondansetron HCl (Ondansetron 4 Mg/2 Ml Inj) 4 mg IV Q8H PRN PRN Reason: Nausea And Vomiting Sodium Chloride (Sodium Chloride 0.9% 10 Ml Flush Syringe) 10 ml IV BID SUZANNA Sodium Chloride (Sodium Chloride 0.9% 10 Ml Flush Syringe) 10 ml IV PRN PRN PRN Reason: LINE FLUSH Review of Systems Constitutional: no fever, no chills Ears, nose, mouth and throat: no nasal congestion, no sore throat Cardiovascular: no chest pain, no palpitations Respiratory: no cough, no shortness of breath Gastrointestinal: nausea, vomiting, no abdominal pain, no diarrhea Genitourinary Male: no dysuria, no hematuria, no flank pain, no nocturia Musculoskeletal: no shooting arm pain, no low back pain Integumentary: no rash, no pruritis Neurological: no headaches, no confusion Psychiatric: no anxiety, no depression Endocrine: no polyphagia, no polydipsia, no polyuria, no nocturia Exam - Constitutional Vitals: Temp Pulse Resp BP Pulse Ox 52 L 14 155/86 94 06/06/21 00:04 06/06/21 00:04 06/06/21 00:04 06/06/21 00:04 General appearance: Present: no acute distress, well-nourished - EENT Eyes: Present: PERRL, EOM intact. Absent: scleral icterus ENT: hearing intact, clear oral mucosa, dentition normal - Neck Neck: Present: supple, normal ROM - Respiratory Respiratory effort: normal Respiratory: bilateral: CTA - Cardiovascular Rhythm: regular Heart Sounds: Present: S1 & S2. Absent: gallop, systolic murmur, diastolic murmur, rub, click - Extremities Extremities: no ischemia, pulses intact, pulses symmetrical, No edema Peripheral Pulses: within normal limits - Abdominal General gastrointestinal: Present: soft, non-tender, non-distended, normal bowel sounds. Absent: mass - Integumentary Integumentary: Present: clear, warm, dry. Absent: rash - Musculoskeletal Musculoskeletal: strength equal bilaterally - Psychiatric Psychiatric: appropriate mood/affect, intact judgment & insight, memory intact, cooperative - Neurologic Neurologic: CNII-XII intact, no focal deficits, moves all extremities Results - Labs CBC & Chem 7: 06/06/21 02:00 06/05/21 23:30 Labs: Abnormal lab results 06/05/21 06/05/21 Range/Units 23:30 23:30 Sodium 134 L (137-145) mmol/L Potassium 3.0 L (3.6-5.0) mmol/L Chloride 95.9 L (98-107) mmol/L Carbon Dioxide 21 L (22-30) mmol/L BUN 74 H (9-20) mg/dL Creatinine 7.4 H (0.8-1.3) mg/dL Glucose 29 L* (75-100) mg/dL Magnesium 2.90 H (1.7-2.3) mg/dL Assessment and Plan - Patient Problems (1) Hypoglycemia Current Visit: No Status: Acute Plan to address problem: Patient started on D10 IV fluid. We will monitor Accu-Cheks closely. (2) Hypokalemia Current Visit: Yes Status: Acute Plan to address problem: Potassium will be repleted and will monitor chemistry closely. (3) Renal insufficiency Current Visit: No Status: Acute Plan to address problem: Patient has known history of chronic kidney disease. We will place consult to nephrology for evaluation. (4) Uncontrolled hypertension Current Visit: No Status: Acute Plan to address problem: We will resume routine home medications once able to tolerate p.o. intake. Meanwhile placed on IV hydralazine as needed. (5) DVT prophylaxis Current Visit: Yes Status: Acute Plan to address problem: Patient placed on subcutaneous heparin. (6) Full code status Current Visit: Yes Status: Acute Plan to address problem: Patient is full code.
[2021-06-06 02:09] LABS: Basophils % (Auto) 0.3 % (0.0-1.8); Eosinophils % (Auto) 0.1 % (0.0-4.3); Hematocrit 34.9 % (35.5-45.6); Hemoglobin 11.2 gm/dl (11.8-15.2); Lymphocytes # (Auto) 1.3 K/mm3 (1.2-5.4); Lymphocytes % (Auto) 15.3 % (13.4-35.0); Mean Corpuscular HGB Conc 32 % (32-34); Monocytes # (Auto) 0.1 K/mm3 (0.0-0.8); Monocytes % (Auto) 1.7 % (0.0-7.3); Platelet Count 262 K/mm3 (140-440); Red Blood Count 5.17 M/mm3 (3.65-5.03)
[2021-06-06 02:10] LABS: Mean Corpuscular Volume 68 fl (84-94)
[2021-06-06] MEDS: HEPARIN 5,000 UNIT/1 ML VIAL SUB-Q SCH ×3 (07:02→22:42)
[2021-06-06] MEDS: DEXTROSE 50% IN WATER (25GM) 50 ML SYRINGE IV PRN ×3 (07:30→11:47)
--- NOTE | 2021-06-06 10:47 | Progress Note ---
Assessment and Plan Assessment and plan: Metabolic encephalopathy. Hypokalemia Chronic kidney disease Accelerated hypertension. 06/06/2021. Creatinine in 2019 2.9 and January of this year 5.8. On admission, patient's creatinine was noted to be 7.4. Await nephrology consultation. Hypoglycemia resolved. However, patient currently on D10 IV fluid. We will transition to D5 half-normal saline. History Interval history: No new issues overnight. Patient is back to baseline mental status. Hospitalist Physical - Constitutional Vitals: Temp Pulse Resp BP Pulse Ox 97.8 F 78 14 162/114 98 06/06/21 07:21 06/06/21 09:00 06/06/21 09:00 06/06/21 09:00 06/06/21 01:00 General appearance: Present: no acute distress, well-nourished - EENT Eyes: Present: PERRL, EOM intact ENT: hearing intact, clear oral mucosa, dentition normal - Neck Neck: Present: supple, normal ROM - Respiratory Respiratory effort: normal Respiratory: bilateral: CTA - Cardiovascular Rhythm: regular Heart Sounds: Present: S1 & S2. Absent: gallop, rub - Extremities Extremities: no ischemia, No edema, Full ROM - Abdominal General gastrointestinal: soft, non-tender, non-distended, normal bowel sounds - Integumentary Integumentary: Present: clear, warm, dry - Neurologic Neurologic: CNII-XII intact, moves all extremities Results - Labs CBC & Chem 7: 06/06/21 02:00 06/05/21 23:30 Labs: Laboratory Last Values WBC 8.7 K/mm3 (4.5-11.0) 06/06/21 02:00 RBC 5.17 M/mm3 (3.65-5.03) H 06/06/21 02:00 Hgb 11.2 gm/dl (11.8-15.2) L 06/06/21 02:00 Hct 34.9 % (35.5-45.6) L 06/06/21 02:00 MCV 68 fl (84-94) L 06/06/21 02:00 MCH 22 pg (28-32) L 06/06/21 02:00 MCHC 32 % (32-34) 06/06/21 02:00 RDW 15.0 % (13.2-15.2) 06/06/21 02:00 Plt Count 262 K/mm3 (140-440) 06/06/21 02:00 Lymph % (Auto) 15.3 % (13.4-35.0) 06/06/21 02:00 [place] % (Auto) 1.7 % (0.0-7.3) 06/06/21 02:00 Eos % (Auto) 0.1 % (0.0-4.3) 06/06/21 02:00 Baso % (Auto) 0.3 % (0.0-1.8) 06/06/21 02:00 Lymph # (Auto) 1.3 K/mm3 (1.2-5.4) 06/06/21 02:00 [place] # (Auto) 0.1 K/mm3 (0.0-0.8) 06/06/21 02:00 Eos # (Auto) 0.0 K/mm3 (0.0-0.4) 06/06/21 02:00 Baso # (Auto) 0.0 K/mm3 (0.0-0.1) 06/06/21 02:00 Seg Neutrophils % 82.6 % (40.0-70.0) H 06/06/21 02:00 Seg Neutrophils # 7.2 K/mm3 (1.8-7.7) 06/06/21 02:00 Sodium 134 mmol/L (137-145) L 06/05/21 23:30 Potassium 3.0 mmol/L (3.6-5.0) L 06/05/21 23:30 Chloride 95.9 mmol/L (98-107) L 06/05/21 23:30 Carbon Dioxide 21 mmol/L (22-30) L 06/05/21 23:30 Anion Gap 20 mmol/L 06/05/21 23:30 BUN 74 mg/dL (9-20) H 06/05/21 23:30 Creatinine 7.4 mg/dL (0.8-1.3) H 06/05/21 23:30 Estimated GFR 11 ml/min 06/05/21 23:30 BUN/Creatinine Ratio 10 % 06/05/21 23:30 Glucose 29 mg/dL (75-100) L* 06/05/21 23:30 POC Glucose 138 mg/dL (70-105) H 06/06/21 10:04 Calcium 9.8 mg/dL (8.4-10.2) 06/05/21 23:30 Magnesium 2.90 mg/dL (1.7-2.3) H 06/05/21 23:30 Active Medications - Current Medications Current Medications: Generic Name Dose Route Start Last Admin Trade Name Freq PRN Reason Stop Dose Admin Acetaminophen 650 mg 06/06/21 01:24 Acetaminophen 325 Mg Tab PO Q4H PRN Pain MILD(1-3)/Fever >100.5/KLEIN Dextrose 50 ml 06/06/21 06:14 06/06/21 09:29 Dextrose 50% In Water (25gm) 50 Ml Syringe IV 50 ml Q30MIN PRN Administration Hypoglycemia Protocol Heparin Sodium (Porcine) 5,000 unit 06/06/21 06:00 06/06/21 07:02 Heparin 5,000 Unit/1 Ml Vial SUB-Q 5,000 unit Q8HR SUZANNA Administration Hydralazine HCl 10 mg 06/06/21 06:17 Hydralazine 20 Mg/1 Ml Inj IV Q4HR PRN Blood Pressure Dextrose 1,000 mls @ 100 mls/hr 06/06/21 01:00 06/06/21 01:25 D10w IV 100 mls/hr DIRECT SUZANNA Administration Magnesium Hydroxide 30 ml 06/06/21 01:24 Magnesium Hydroxide (Mom) Oral Liqd Udc PO Q4H PRN Constipation Morphine Sulfate 2 mg 06/06/21 01:24 Morphine 2 Mg/1 Ml Inj IV Q4H PRN Pain, Moderate (4-6) Morphine Sulfate 4 mg 06/06/21 01:24 Morphine 4 Mg/1 Ml Inj IV Q4H PRN Pain , Severe (7-10) Ondansetron HCl 4 mg 06/06/21 01:24 06/06/21 09:45 Ondansetron 4 Mg/2 Ml Inj IV 4 mg Q8H PRN Administration Nausea And Vomiting Sodium Chloride 10 ml 06/06/21 10:00 Sodium Chloride 0.9% 10 Ml Flush Syringe IV BID SUZANNA Sodium Chloride 10 ml 06/06/21 01:24 Sodium Chloride 0.9% 10 Ml Flush Syringe IV PRN PRN LINE FLUSH
[2021-06-06] MEDS ORDERED: D5W/0.45% NACL 1,000 ML IV SCH (11:00)
[2021-06-06] MEDS: hydrALAZINE 20 MG/1 ML INJ IV PRN (11:48)
[2021-06-06] MEDS ORDERED: METOCLOPRAMIDE 10 MG/2 ML INJ IV PRN (12:00)
--- NOTE | 2021-06-06 15:38 | Consultation ---
History of Present Illness - Reason for Consult acute renal failure - History of Present Illness 30-year-old -[place] male with past medical history of type 1 diabetes, hypertension, and what seems to be at least underlying chronic kidney disease stage III, presented to the emergency department secondary to worsening weakness, nausea, vomiting in the setting of severe hypoglycemia. Has had previ ous admissions in the past with similar complaints secondary to hypoglycemia. Noted to have what seems to be acute on chronic kidney failure for which nephrology's consult for further evaluation. Secondary to persistent hypoglycemia he has now been started on continuous D5 half normal saline running at 75 cc an hour. At bedside glucometer check was up to 189. Patient states that overall since admission though he still feels very weak he is starting to improve. Past History Past Medical History: diabetes, hypertension Social history: no significant social history Family history: no significant family history Medications and Allergies Allergies Allergy/AdvReac Type Severity Reaction Status Date / Time No Known Allergies Allergy Verified 08/18/19 06:38 Home Medications Medication Instructions Recorded Confirmed Last Taken Type Insulin Regular, Human [HumuLIN R] 0 unit SQ AC #1 vial 08/21/19 Unknown Rx Albuterol Mdi (or & Nicu Only) 2 puff IH QID PRN #8.5 gram 01/14/21 Unknown Rx [ProAir HFA Inhaler] Azithromycin [Zithromax Z-LAI] 250 mg PO DAILY #6 tab 01/14/21 Unknown Rx amLODIPine 10 mg PO DAILY #30 tablet 01/14/21 Unknown Rx carvediloL [Coreg] 25 mg PO BID #60 tablet 01/14/21 Unknown Rx Active Meds: Active Medications Acetaminophen (Acetaminophen 325 Mg Tab) 650 mg PO Q4H PRN PRN Reason: Pain MILD(1-3)/Fever >100.5/KLEIN Dextrose (Dextrose 50% In Water (25gm) 50 Ml Syringe) 50 ml IV Q30MIN PRN; Protocol PRN Reason: Hypoglycemia Last Admin: 06/06/21 11:47 Dose: 50 ml Documented by: Heparin Sodium (Porcine) (Heparin 5,000 Unit/1 Ml Vial) 5,000 unit SUB-Q Q8HR SUZANNA Last Admin: 06/06/21 14:08 Dose: 5,000 unit Documented by: Hydralazine HCl (Hydralazine 20 Mg/1 Ml Inj) 10 mg IV Q4HR PRN PRN Reason: Blood Pressure Last Admin: 06/06/21 11:48 Dose: 10 mg Documented by: Dextrose/Sodium Chloride (D5/0.45ns) 1,000 mls @ 75 mls/hr IV DIRECT [facility] Last Admin: 06/06/21 11:49 Dose: 75 mls/hr Documented by: Magnesium Hydroxide (Magnesium Hydroxide (Mom) Oral Liqd Udc) 30 ml PO Q4H PRN PRN Reason: Constipation Metoclopramide HCl (Metoclopramide 10 Mg/2 Ml Inj) 5 mg IV Q6H PRN PRN Reason: Nausea And Vomiting Morphine Sulfate (Morphine 2 Mg/1 Ml Inj) 2 mg IV Q4H PRN PRN Reason: Pain, Moderate (4-6) Morphine Sulfate (Morphine 4 Mg/1 Ml Inj) 4 mg IV Q4H PRN PRN Reason: Pain , Severe (7-10) Ondansetron HCl (Ondansetron 4 Mg/2 Ml Inj) 4 mg IV Q8H PRN PRN Reason: Nausea And Vomiting Last Admin: 06/06/21 09:45 Dose: 4 mg Documented by: Sodium Chloride (Sodium Chloride 0.9% 10 Ml Flush Syringe) 10 ml IV BID [facility] Last Admin: 06/06/21 10:40 Dose: 10 ml Documented by: Sodium Chloride (Sodium Chloride 0.9% 10 Ml Flush Syringe) 10 ml IV PRN PRN PRN Reason: LINE FLUSH Review of Systems Constitutional: weakness, malaise, poor appetite Gastrointestinal: abdominal pain, nausea, vomiting Exam - Vital Signs Vital signs: Vital Signs Resp Pulse Ox 20 100 06/05/21 22:37 06/05/21 22:37 - General Appearance General appearance: appears stated age EENT: ATNC Neck: Present: neck supple Respiratory: Clear to Ascultation Heart: regular Gastrointestinal: Present: normal Integumentary: warm and dry Neurologic: no focal deficit Psychiatric: cooperative Results - Lab Results 06/06/21 02:00 06/05/21 23:30 Most recent lab results Calcium 9.8 mg/dL (8.4-10.2) 06/05/21 23:30 Magnesium 2.90 mg/dL (1.7-2.3) H 06/05/21 23:30 Assessment and Plan - Patient Problems (1) Acute kidney injury superimposed on CKD Current Visit: Yes Status: Acute Plan to address problem: Likely prerenal in etiology in the setting of severe hypoglycemia. Continue with aggressive IV fluid hydration and correction of hypoglycemia. Renal ultrasound ordered. Will assess urine analysis along with urine electrolytes for further evaluation. Will monitor closely. Please avoid all nephrotoxins and maintain mean arterial pressures above 65mmHg. (2) Altered mental status Current Visit: Yes Status: Acute Plan to address problem: In the setting of hypoglycemia. Improving slowly since admission. (3) Hypoglycemia Current Visit: No Status: Acute Plan to address problem: Started on continuous D5 half-normal saline at 75 cc an hour. (4) IDDM (insulin dependent diabetes mellitus) Current Visit: No Status: Chronic Plan to address problem: Diabetes management per primary attending. (5) Hypertensive chronic kidney disease with stage 1 through stage 4 chronic kidney disease, or unspecified chronic kidney disease Current Visit: Yes Status: Chronic Plan to address problem: Monitor blood pressures under current regimen.
--- NOTE | 2021-06-06 21:29 | Ultrasound Report ---
ULTRASOUND RENAL INDICATION / CLINICAL INFORMATION: SUMIT. COMPARISON: None available. FINDINGS: RIGHT KIDNEY: Length = 10.6 cm. - Echogenicity: Normal. - Cortical Thickness: Normal. - Hydronephrosis: None. - Cyst / Mass: None. - Stones: None seen. LEFT KIDNEY: Length = 11.2 cm. - Echogenicity: Normal. - Cortical Thickness: Normal. - Hydronephrosis: None. - Cyst / Mass: None. - Stones: None seen. URINARY BLADDER: Debris within the urinary bladder. FREE FLUID: None. ADDITIONAL FINDINGS: None. IMPRESSION: Degrees and the urinary bladder. Otherwise, no significant abnormality. Signer Name: Sergio Graham MD Signed: 06/06/2021 9:25 PM Workstation Name: [id number]
[2021-06-06 21:32] LABS: Bilirubin,Urine NEG (Negative); Blood,Urine LG (Negative); Color,Urine Straw (Yellow); Urobilinogen,Urine < 2.0 mg/dL (<2.0)
[2021-06-06 21:37] LABS: Protein,Urine >500 mg/dL (Negative)
[2021-06-06 21:56] LABS: Creatinine,Urine 92.5 mg/dL (0.1-20.0)
[2021-06-07 05:04] LABS: Basophils % (Auto) 0.1 % (0.0-1.8); Hematocrit 36.1 % (35.5-45.6); Hemoglobin 11.8 gm/dl (11.8-15.2); Lymphocytes % (Auto) 7.5 % (13.4-35.0); Mean Corpuscular HGB Conc 33 % (32-34); Mean Corpuscular Volume 68 fl (84-94); Monocytes # (Auto) 0.5 K/mm3 (0.0-0.8); Monocytes % (Auto) 4.1 % (0.0-7.3); Platelet Count 243 K/mm3 (140-440); Red Blood Count 5.28 M/mm3 (3.65-5.03); Red Cell Distribution Width 14.7 % (13.2-15.2)
[2021-06-07 05:13] LABS: INR 0.97 (0.87-1.13)
[2021-06-07 05:19] LABS: Calcium 8.8 mg/dL (8.4-10.2)
[2021-06-07] MEDS: HEPARIN 5,000 UNIT/1 ML VIAL SUB-Q SCH ×3 (06:51→21:19)
--- NOTE | 2021-06-07 07:51 | Discharge Summary ---
Providers - Providers Date of Admission: 06/06/21 01:24 Date of discharge: 06/09/21 Attending physician: FELISHA POLLOCK 06/06/21 01:33 Consult to Dietitian/Nutrition [CONS] Routine Physician Instructions: Reason For Exam: Reason for Consult: Diet education 06/06/21 01:56 Consult to Physician [CONS] Routine Comment: Consulting Provider: MEG KIM Physician Instructions: Reason For Exam: ACUTE ON CHRONIC RENAL FAILURE 06/07/21 00:55 Consult to Dietitian/Nutrition [CONS] Routine Physician Instructions: Reason For Exam: Reason for Consult: Poor oral intake Primary care physician: H[employer]CE PROFESSOR Hospitalization Reason for admission: Hypoglycemia, metabolic encephalopathy Condition: Stable Hospital course: 30-year-old -[place] male with past medical history of type 1 diabetes, hypertension, and what seems to be at least underlying chronic kidney disease stage III, presented to the emergency department secondary to worsening weakness, nausea, vomiting in the setting of severe hypoglycemia. Has had previous admissions in the past with similar complaints secondary to hypog lycemia. The patient was admitted with diagnosis of acute on chronic kidney disease, acute hypoglycemia and metabolic encephalopathy on this admission. For the acute on chronic kidney failure, nephrology was consulted for further evaluation. Secondary to persistent hypoglycemia, patient was been started on continuous D5 half normal saline running at 75 cc an hour. The patient is BG stabilized during hospitalization and D5 IV fluid was discontinued. The patient's BG became labile with increase in blood sugar to 600 yesterday. Patient was started back on home insulin regimen and BG stabilized. With regards to his kidney function, nephrology reports Overall renal function is stable but remains markedly impaired. Despite IV fluid hydration, nephrology discussed with patient that this likely means that we are dealing with advanced chronic kidney disease stage V at this point. He is symptomatically not having any overt signs of uremia at present time. In fact, he feels better than when he initially came in. Nephrology discussed with patient the importance of him following up very closely as an outpatient for likely initiation of hemodialysis. Dedicated discharge time 35 minutes Disposition: HOME / SELF CARE / HOMELESS Final Discharge Diagnosis (Prints w/discharge instructions): Hyperglycemia, metabolic encephalopathy, acute on chronic kidney disease. Core Measure Documentation - Palliative Care Palliative Care/ Comfort Measures: Not Applicable - Core Measures Any of the following diagnoses?: none Exam - Constitutional Vitals: Temp Pulse Resp BP Pulse Ox 98.6 F 88 16 141/78 99 06/07/21 03:30 06/07/21 03:30 06/07/21 03:30 06/07/21 03:30 06/07/21 03:30 General appearance: Present: no acute distress, well-nourished - EENT Eyes: Present: PERRL ENT: hearing intact, clear oral mucosa - Neck Neck: Present: supple, normal ROM - Respiratory Respiratory effort: normal Respiratory: bilateral: CTA - Cardiovascular Heart Sounds: Present: S1 & S2. Absent: rub, click - Extremities Extremities: pulses symmetrical, No edema Peripheral Pulses: within normal limits - Abdominal General gastrointestinal: Present: soft, non-tender, non-distended, normal bowel sounds Male genitourinary: Present: normal - Integumentary Integumentary: Present: clear, warm, dry - Musculoskeletal Musculoskeletal: gait normal, strength equal bilaterally - Psychiatric Psychiatric: appropriate mood/affect, intact judgment & insight - Neurologic Neurologic: CNII-XII intact, moves all extremities Plan Activity: advance as tolerated Weight Bearing Status: Weight Bear as Tolerated Diet: renal Additional Instructions: Follow-up with nephrology in 1 week. Follow up with: PRIMARY CARE, [Primary Care Provider] - 3-5 Days SCOTT DUKE DO [Staff Physician] - 7 Days Prescriptions: amLODIPine 10 mg PO DAILY #30 tablet carvediloL [Coreg] 25 mg PO BID #60 tablet Insulin NPH Hum/Reg Insulin Hm [Novolin 70-30 100 Unit/ml Vial] 20 units SC BIDPC 30 Days vial
[2021-06-07] MEDS: INSULIN LISPRO 100 UNIT/ML SUB-Q SCH ×4 (08:20→22:59)
[2021-06-07] MEDS: SODIUM CHLORIDE 0.9% 1000 ML 1,000 ML IV SCH ×2 (08:20→21:27)
[2021-06-07] MEDS: hydrALAZINE 20 MG/1 ML INJ IV PRN (09:02)
--- NOTE | 2021-06-07 10:01 | Progress Note ---
Assessment and Plan - Patient Problems (1) Acute kidney injury superimposed on CKD Current Visit: Yes Status: Acute Plan to address problem: Overall renal function is stable but remains markedly impaired. Despite IV fluid hydration I discussed with patient that this likely means that we are dealing with advanced chronic kidney disease stage V at this point. He is symptomatically not having any overt signs of uremia at present time. In fact he feels better than when he initially came in. Discussed with patient the importance of him following up very closely as an outpatient for likely initiation of hemodialysis. We will continue to monitor closely and obtain renal function panel daily while here in the hospital for further monitoring. (2) Altered mental status Current Visit: Yes Status: Acute Plan to address problem: In the setting of hypoglycemia. Improving slowly since admission. (3) Hypoglycemia Current Visit: No Status: Acute Plan to address problem: Discontinued off the D5 half-normal saline secondary to hyperglycemia noted this morning. We will continue to monitor closely. (4) IDDM (insulin dependent diabetes mellitus) Current Visit: No Status: Chronic Plan to address problem: Diabetes management per primary attending. (5) Hypertensive chronic kidney disease with stage 1 through stage 4 chronic kidney disease, or unspecified chronic kidney disease Current Visit: Yes Status: Chronic Plan to address problem: Monitor blood pressures under current regimen. Subjective Date of service: 06/07/21 Interval history: No acute complaints overnight. Blood sugars noted to be over 400 this morning. Administered insulin per protocol. Overall symptom nolasco does feel better than initial admission. Renal function still remains markedly impaired likely indicating advanced chronic kidney disease at this point. No overt symptoms of uremia present at this time. Discussed with patient in detail the importance of very close follow-up as outpatient for further renal management including likelihood of initiating dialysis in the near future. Objective - Vital Signs Vital signs: Vital Signs - 12hr 06/06/21 06/07/21 06/07/21 23:00 03:30 07:54 Temperature 98.2 F 98.6 F 98.3 F Pulse Rate 87 88 90 Respiratory 16 16 18 Rate Blood Pressure 165/108 141/78 187/127 O2 Sat by Pulse 98 99 99 Oximetry 06/07/21 09:02 Temperature Pulse Rate 91 H Respiratory Rate Blood Pressure 175/100 O2 Sat by Pulse Oximetry - General Appearance General appearance: appears stated age EENT: ATNC Neck: no JVD Respiratory: Present: Clear to Ascultation Cardiology: regular, normal heart rate Gastrointestinal: normal Integumentary: no rash, warm and dry Neurologic: no focal deficit Psychiatric: mood/affect appropriate, cooperative - Lab 06/07/21 04:11 06/07/21 04:11 Most recent lab results Calcium 8.8 mg/dL (8.4-10.2) 06/07/21 04:11 Magnesium 2.90 mg/dL (1.7-2.3) H 06/05/21 23:30 Urine Creatinine 92.5 mg/dL (0.1-20.0) H 06/06/21 21:09 Urine Sodium 34 mmol/L 06/06/21 21:09 - Allied health notes Allied health notes reviewed: nursing Medications & Allergies - Medications Allergies/Adverse Reactions: Allergies No Known Allergies Allergy (Verified 06/06/21 16:06) Home Medications: Home Medications Medication Instructions Recorded Confirmed Last Taken Type Insulin Regular, Human [HumuLIN R] 0 unit SQ AC #1 vial 08/21/19 Unknown Rx Albuterol Mdi (or & Nicu Only) 2 puff IH QID PRN #8.5 gram 01/14/21 Unknown Rx [ProAir HFA Inhaler] Azithromycin [Zithromax Z-LAI] 250 mg PO DAILY #6 tab 01/14/21 Unknown Rx amLODIPine 10 mg PO DAILY #30 tablet 01/14/21 Unknown Rx carvediloL [Coreg] 25 mg PO BID #60 tablet 01/14/21 Unknown Rx Active Medications: Generic Name Dose Route Start Last Admin Trade Name Freq PRN Reason Stop Dose Admin Acetaminophen 650 mg 06/06/21 01:24 Acetaminophen 325 Mg Tab PO Q4H PRN Pain MILD(1-3)/Fever >100.5/KLEIN Dextrose 50 ml 06/06/21 06:14 06/06/21 11:47 Dextrose 50% In Water (25gm) 50 Ml Syringe IV 50 ml Q30MIN PRN Administration Hypoglycemia Protocol Heparin Sodium (Porcine) 5,000 unit 06/06/21 06:00 06/07/21 06:51 Heparin 5,000 Unit/1 Ml Vial SUB-Q 5,000 unit Q8HR SUZANNA Administration Hydralazine HCl 10 mg 06/06/21 06:17 06/07/21 09:02 Hydralazine 20 Mg/1 Ml Inj IV 10 mg Q4HR PRN Administration Blood Pressure Sodium Chloride 1,000 mls @ 75 mls/hr 06/07/21 08:00 06/07/21 08:20 Nacl 0.9% 1000 Ml IV 75 mls/hr DIRECT SUZANNA Administration Insulin Human Lispro 0 unit 06/07/21 08:30 06/07/21 08:20 Insulin Lispro 100 Unit/Ml SUB-Q 8 unit ACHS SUZANNA Administration Protocol Magnesium Hydroxide 30 ml 06/06/21 01:24 06/07/21 07:05 Magnesium Hydroxide (Mom) Oral Liqd Udc PO 30 ml Q4H PRN Administration Constipation Metoclopramide HCl 5 mg 06/06/21 12:00 Metoclopramide 10 Mg/2 Ml Inj IV Q6H PRN Nausea And Vomiting Morphine Sulfate 2 mg 06/06/21 01:24 Morphine 2 Mg/1 Ml Inj IV Q4H PRN Pain, Moderate (4-6) Morphine Sulfate 4 mg 06/06/21 01:24 Morphine 4 Mg/1 Ml Inj IV Q4H PRN Pain , Severe (7-10) Ondansetron HCl 4 mg 06/06/21 01:24 06/06/21 09:45 Ondansetron 4 Mg/2 Ml Inj IV 4 mg Q8H PRN Administration Nausea And Vomiting Sodium Chloride 10 ml 06/06/21 10:00 06/07/21 09:01 Sodium Chloride 0.9% 10 Ml Flush Syringe IV 10 ml BID SUZANNA Administration Sodium Chloride 10 ml 06/06/21 01:24 Sodium Chloride 0.9% 10 Ml Flush Syringe IV PRN PRN LINE FLUSH
--- NOTE | 2021-06-07 10:34 | Progress Note ---
Assessment and Plan Assessment and plan: Metabolic encephalopathy. Hypokalemia Chronic kidney disease Accelerated hypertension. 06/06/2021. Creatinine in 2019 2.9 and January of this year 5.8. On admission, patient's creatinine was noted to be 7.4. Await nephrology consultation. Hypoglycemia resolved. However, patient currently on D10 IV fluid. We will transition to D5 half-normal saline. 06/07/21. Nephrology reports that the overall renal function is stable but remains markedly impaired. Despite IV fluid hydration with no improvement, the patient likely has chronic kidney disease stage V. He is symptomatically not having any overt signs of uremia at present time. In fact he feels better than when he initially came in. Nephrology discussed with patient the importance of him following up very closely as an outpatient for likely initiation of hemodialysis. Patient had elevated blood sugar greater than 400 this morning but was on D5 IV fluids. The patient has been transitioned off of D5 today and will monitor BG for anticipated discharge later today or in a.m. History Interval history: No new issues overnight. Patient is back to baseline mental status. Hospitalist Physical - Constitutional Vitals: Temp Pulse Resp BP Pulse Ox 98.3 F 91 H 18 175/100 99 06/07/21 07:54 06/07/21 09:02 06/07/21 07:54 06/07/21 09:02 06/07/21 07:54 General appearance: Present: no acute distress, well-nourished - EENT Eyes: Present: PERRL, EOM intact ENT: hearing intact, clear oral mucosa, dentition normal - Neck Neck: Present: supple, normal ROM - Respiratory Respiratory effort: normal Respiratory: bilateral: CTA - Cardiovascular Rhythm: regular Heart Sounds: Present: S1 & S2. Absent: gallop, rub - Extremities Extremities: no ischemia, No edema, Full ROM - Abdominal General gastrointestinal: soft, non-tender, non-distended, normal bowel sounds - Integumentary Integumentary: Present: clear, warm, dry - Neurologic Neurologic: CNII-XII intact, moves all extremities Results - Labs CBC & Chem 7: 06/07/21 04:11 06/07/21 04:11 Labs: Laboratory Last Values WBC 13.0 K/mm3 (4.5-11.0) H 06/07/21 04:11 RBC 5.28 M/mm3 (3.65-5.03) H 06/07/21 04:11 Hgb 11.8 gm/dl (11.8-15.2) 06/07/21 04:11 Hct 36.1 % (35.5-45.6) 06/07/21 04:11 MCV 68 fl (84-94) L 06/07/21 04:11 MCH 22 pg (28-32) L 06/07/21 04:11 MCHC 33 % (32-34) 06/07/21 04:11 RDW 14.7 % (13.2-15.2) 06/07/21 04:11 Plt Count 243 K/mm3 (140-440) 06/07/21 04:11 Lymph % (Auto) 7.5 % (13.4-35.0) L 06/07/21 04:11 [place] % (Auto) 4.1 % (0.0-7.3) 06/07/21 04:11 Eos % (Auto) 0.0 % (0.0-4.3) 06/07/21 04:11 Baso % (Auto) 0.1 % (0.0-1.8) 06/07/21 04:11 Lymph # (Auto) 1.0 K/mm3 (1.2-5.4) L 06/07/21 04:11 [place] # (Auto) 0.5 K/mm3 (0.0-0.8) 06/07/21 04:11 Eos # (Auto) 0.0 K/mm3 (0.0-0.4) 06/07/21 04:11 Baso # (Auto) 0.0 K/mm3 (0.0-0.1) 06/07/21 04:11 Seg Neutrophils % 88.3 % (40.0-70.0) H 06/07/21 04:11 Seg Neutrophils # 11.5 K/mm3 (1.8-7.7) H 06/07/21 04:11 PT 13.5 Sec. (12.2-14.9) 06/07/21 04:11 INR 0.97 (0.87-1.13) 06/07/21 04:11 Sodium 126 mmol/L (137-145) L D 06/07/21 04:11 Potassium 3.5 mmol/L (3.6-5.0) L 06/07/21 04:11 Chloride 87.4 mmol/L (98-107) L 06/07/21 04:11 Carbon Dioxide 23 mmol/L (22-30) 06/07/21 04:11 Anion Gap 19 mmol/L 06/07/21 04:11 BUN 74 mg/dL (9-20) H 06/07/21 04:11 Creatinine 7.2 mg/dL (0.8-1.3) H 06/07/21 04:11 Estimated GFR 11 ml/min 06/07/21 04:11 BUN/Creatinine Ratio 10 % 06/07/21 04:11 Glucose 379 mg/dL (75-100) H 06/07/21 04:11 POC Glucose 497 mg/dL (70-105) H 06/07/21 07:54 Calcium 8.8 mg/dL (8.4-10.2) 06/07/21 04:11 Magnesium 2.90 mg/dL (1.7-2.3) H 06/05/21 23:30 Urine Color Straw (Yellow) 06/06/21 21:09 Urine Turbidity Clear (Clear) 06/06/21 21:09 Urine pH 5.0 (5.0-7.0) 06/06/21 21:09 Ur Specific [place] 1.011 (1.003-1.030) 06/06/21 21:09 Urine Protein >500 mg/dL (Negative) 06/06/21 21:09 Urine Glucose (UA) 150 mg/dL (Negative) 06/06/21 21:09 Urine Ketones Neg mg/dL (Negative) 06/06/21 21:09 Urine Blood Lg (Negative) 06/06/21 21:09 Urine Nitrite Neg (Negative) 06/06/21 21:09 Urine Bilirubin Neg (Negative) 06/06/21 21:09 Urine Urobilinogen < 2.0 mg/dL (<2.0) 06/06/21 21:09 Ur Leukocyte Esterase Neg (Negative) 06/06/21 21:09 Urine WBC (Auto) 2.0 /HPF (0.0-6.0) 06/06/21 21:09 Urine RBC (Auto) 2.0 /HPF (0.0-6.0) 06/06/21 21:09 Urine Creatinine 92.5 mg/dL (0.1-20.0) H 06/06/21 21:09 Urine Sodium 34 mmol/L 06/06/21 21:09 Urine Chloride 22.0 mmolL (110-250) L 06/06/21 21:09 Active Medications - Current Medications Current Medications: Generic Name Dose Route Start Last Admin Trade Name Freq PRN Reason Stop Dose Admin Acetaminophen 650 mg 06/06/21 01:24 Acetaminophen 325 Mg Tab PO Q4H PRN Pain MILD(1-3)/Fever >100.5/KLEIN Dextrose 50 ml 06/06/21 06:14 06/06/21 11:47 Dextrose 50% In Water (25gm) 50 Ml Syringe IV 50 ml Q30MIN PRN Administration Hypoglycemia Protocol Heparin Sodium (Porcine) 5,000 unit 06/06/21 06:00 06/07/21 06:51 Heparin 5,000 Unit/1 Ml Vial SUB-Q 5,000 unit Q8HR SUZANNA Administration Hydralazine HCl 10 mg 06/06/21 06:17 06/07/21 09:02 Hydralazine 20 Mg/1 Ml Inj IV 10 mg Q4HR PRN Administration Blood Pressure Sodium Chloride 1,000 mls @ 75 mls/hr 06/07/21 08:00 06/07/21 08:20 Nacl 0.9% 1000 Ml IV 75 mls/hr DIRECT SUZANNA Administration Insulin Human Lispro 0 unit 06/07/21 08:30 06/07/21 08:20 Insulin Lispro 100 Unit/Ml SUB-Q 8 unit ACHS SUZANNA Administration Protocol Magnesium Hydroxide 30 ml 06/06/21 01:24 06/07/21 07:05 Magnesium Hydroxide (Mom) Oral Liqd Udc PO 30 ml Q4H PRN Administration Constipation Metoclopramide HCl 5 mg 06/06/21 12:00 Metoclopramide 10 Mg/2 Ml Inj IV Q6H PRN Nausea And Vomiting Morphine Sulfate 2 mg 06/06/21 01:24 Morphine 2 Mg/1 Ml Inj IV Q4H PRN Pain, Moderate (4-6) Morphine Sulfate 4 mg 06/06/21 01:24 Morphine 4 Mg/1 Ml Inj IV Q4H PRN Pain , Severe (7-10) Ondansetron HCl 4 mg 06/06/21 01:24 06/06/21 09:45 Ondansetron 4 Mg/2 Ml Inj IV 4 mg Q8H PRN Administration Nausea And Vomiting Sodium Chloride 10 ml 06/06/21 10:00 06/07/21 09:01 Sodium Chloride 0.9% 10 Ml Flush Syringe IV 10 ml BID SUZANNA Administration Sodium Chloride 10 ml 06/06/21 01:24 Sodium Chloride 0.9% 10 Ml Flush Syringe IV PRN PRN LINE FLUSH
[2021-06-07] MEDS ORDERED: BENZOCAINE 13 ML BOTTLE (ORAJEL) MM PRN (17:23)
[2021-06-08] MEDS: hydrALAZINE 20 MG/1 ML INJ IV PRN ×2 (00:11→04:10)
[2021-06-08] MEDS: HEPARIN 5,000 UNIT/1 ML VIAL SUB-Q SCH ×3 (05:20→21:19)
[2021-06-08 06:55] LABS: Calcium 8.5 mg/dL (8.4-10.2)
[2021-06-08] MEDS: INSULIN LISPRO 100 UNIT/ML SUB-Q SCH ×4 (07:48→20:40)
[2021-06-08] MEDS ORDERED: INSULIN REGULAR, HUMAN 100 UNITS/1 ML SUB-Q NR (08:30)
[2021-06-08] MEDS ORDERED: INSULIN GLARGINE 100 UNITS/ML SUB-Q NR (09:00)
--- NOTE | 2021-06-08 10:21 | Progress Note ---
Assessment and Plan Assessment and plan: Metabolic encephalopathy. Hypokalemia Chronic kidney disease Accelerated hypertension. 06/06/2021. Creatinine in 2019 2.9 and January of this year 5.8. On admission, patient's creatinine was noted to be 7.4. Await nephrology consultation. Hypoglycemia resolved. However, patient currently on D10 IV fluid. We will transition to D5 half-normal saline. 06/07/21. Nephrology reports that the overall renal function is stable but remains markedly impaired. Despite IV fluid hydration with no improvement, the patient likely has chronic kidney disease stage V. He is symptomatically not having any overt signs of uremia at present time. In fact he feels better than when he initially came in. Nephrology discussed with patient the importance of him following up very closely as an outpatient for likely initiation of hemodialysis. Patient had elevated blood sugar greater than 400 this morning but was on D5 IV fluids. The patient has been transitioned off of D5 today and will monitor BG for anticipated discharge later today or in a.m. 06/08/2021. Patient with elevated BG this morning at 610. Patient started on Lantus insulin this morning. Patient also received sliding scale coverage for the elevated BG. Continue to monitor closely and consider IV insulin drip if no significant improvement History Interval history: No new issues overnight. Patient is back to baseline mental status. Hospitalist Physical - Constitutional Vitals: Temp Pulse Resp BP Pulse Ox 97.8 F 103 H 16 145/86 100 06/08/21 04:54 06/08/21 05:17 06/08/21 04:54 06/08/21 05:17 06/08/21 05:17 General appearance: Present: no acute distress, well-nourished - EENT Eyes: Present: PERRL, EOM intact ENT: hearing intact, clear oral mucosa, dentition normal - Neck Neck: Present: supple, normal ROM - Respiratory Respiratory effort: normal Respiratory: bilateral: CTA - Cardiovascular Rhythm: regular Heart Sounds: Present: S1 & S2. Absent: gallop, rub - Extremities Extremities: no ischemia, No edema, Full ROM - Abdominal General gastrointestinal: soft, non-tender, non-distended, normal bowel sounds - Integumentary Integumentary: Present: clear, warm, dry - Neurologic Neurologic: CNII-XII intact, moves all extremities Results - Labs CBC & Chem 7: 06/07/21 04:11 06/08/21 07:55 Labs: Laboratory Last Values WBC 13.0 K/mm3 (4.5-11.0) H 06/07/21 04:11 RBC 5.28 M/mm3 (3.65-5.03) H 06/07/21 04:11 Hgb 11.8 gm/dl (11.8-15.2) 06/07/21 04:11 Hct 36.1 % (35.5-45.6) 06/07/21 04:11 MCV 68 fl (84-94) L 06/07/21 04:11 MCH 22 pg (28-32) L 06/07/21 04:11 MCHC 33 % (32-34) 06/07/21 04:11 RDW 14.7 % (13.2-15.2) 06/07/21 04:11 Plt Count 243 K/mm3 (140-440) 06/07/21 04:11 Lymph % (Auto) 7.5 % (13.4-35.0) L 06/07/21 04:11 [place] % (Auto) 4.1 % (0.0-7.3) 06/07/21 04:11 Eos % (Auto) 0.0 % (0.0-4.3) 06/07/21 04:11 Baso % (Auto) 0.1 % (0.0-1.8) 06/07/21 04:11 Lymph # (Auto) 1.0 K/mm3 (1.2-5.4) L 06/07/21 04:11 [place] # (Auto) 0.5 K/mm3 (0.0-0.8) 06/07/21 04:11 Eos # (Auto) 0.0 K/mm3 (0.0-0.4) 06/07/21 04:11 Baso # (Auto) 0.0 K/mm3 (0.0-0.1) 06/07/21 04:11 Seg Neutrophils % 88.3 % (40.0-70.0) H 06/07/21 04:11 Seg Neutrophils # 11.5 K/mm3 (1.8-7.7) H 06/07/21 04:11 PT 13.5 Sec. (12.2-14.9) 06/07/21 04:11 INR 0.97 (0.87-1.13) 06/07/21 04:11 Sodium 126 mmol/L (137-145) L 06/08/21 05:27 Potassium 4.1 mmol/L (3.6-5.0) 06/08/21 05:27 Chloride 90.5 mmol/L (98-107) L 06/08/21 05:27 Carbon Dioxide 16 mmol/L (22-30) L D 06/08/21 05:27 Anion Gap 24 mmol/L 06/08/21 05:27 BUN 86 mg/dL (9-20) H 06/08/21 05:27 Creatinine 7.3 mg/dL (0.8-1.3) H 06/08/21 05:27 Estimated GFR 11 ml/min 06/08/21 05:27 BUN/Creatinine Ratio 12 % 06/08/21 05:27 Glucose 680 mg/dL (75-100) H* 06/08/21 07:55 POC Glucose > 600 mg/dL (70-105) H 06/08/21 08:30 Calcium 8.5 mg/dL (8.4-10.2) 06/08/21 05:27 Magnesium 2.90 mg/dL (1.7-2.3) H 06/05/21 23:30 Urine Color Straw (Yellow) 06/06/21 21:09 Urine Turbidity Clear (Clear) 06/06/21 21:09 Urine pH 5.0 (5.0-7.0) 06/06/21 21:09 Ur Specific [place] 1.011 (1.003-1.030) 06/06/21 21:09 Urine Protein >500 mg/dL (Negative) 06/06/21 21:09 Urine Glucose (UA) 150 mg/dL (Negative) 06/06/21 21:09 Urine Ketones Neg mg/dL (Negative) 06/06/21 21:09 Urine Blood Lg (Negative) 06/06/21 21:09 Urine Nitrite Neg (Negative) 06/06/21 21:09 Urine Bilirubin Neg (Negative) 06/06/21 21:09 Urine Urobilinogen < 2.0 mg/dL (<2.0) 06/06/21 21:09 Ur Leukocyte Esterase Neg (Negative) 06/06/21 21:09 Urine WBC (Auto) 2.0 /HPF (0.0-6.0) 06/06/21 21:09 Urine RBC (Auto) 2.0 /HPF (0.0-6.0) 06/06/21 21:09 Urine Creatinine 92.5 mg/dL (0.1-20.0) H 06/06/21 21:09 Urine Sodium 34 mmol/L 06/06/21 21:09 Urine Chloride 22.0 mmolL (110-250) L 06/06/21 21:09 Vazquez/IV: Voiding Method Urinal Active Medications - Current Medications Current Medications: Generic Name Dose Route Start Last Admin Trade Name Freq PRN Reason Stop Dose Admin Acetaminophen 650 mg 06/06/21 01:24 Acetaminophen 325 Mg Tab PO Q4H PRN Pain MILD(1-3)/Fever >100.5/KLEIN Benzocaine 1 applic 06/07/21 17:23 06/07/21 23:23 Benzocaine 13 Ml Bottle (Orajel) MM 1 applic Q6H PRN Administration Mouth Pain Dextrose 50 ml 06/06/21 06:14 06/06/21 11:47 Dextrose 50% In Water (25gm) 50 Ml Syringe IV 50 ml Q30MIN PRN Administration Hypoglycemia Protocol Heparin Sodium (Porcine) 5,000 unit 06/06/21 06:00 06/08/21 05:20 Heparin 5,000 Unit/1 Ml Vial SUB-Q 5,000 unit Q8HR SUZANNA Administration Hydralazine HCl 10 mg 06/06/21 06:17 06/08/21 04:10 Hydralazine 20 Mg/1 Ml Inj IV 10 mg Q4HR PRN Administration Blood Pressure Sodium Chloride 1,000 mls @ 75 mls/hr 06/07/21 08:00 06/07/21 21:27 Nacl 0.9% 1000 Ml IV 75 mls/hr DIRECT SUZANNA Administration Insulin Human Lispro 0 unit 06/07/21 08:30 06/08/21 07:48 Insulin Lispro 100 Unit/Ml SUB-Q 8 unit ACHS SUZANNA Administration Protocol Magnesium Hydroxide 30 ml 06/06/21 01:24 06/07/21 07:05 Magnesium Hydroxide (Mom) Oral Liqd Udc PO 30 ml Q4H PRN Administration Constipation Metoclopramide HCl 5 mg 06/06/21 12:00 Metoclopramide 10 Mg/2 Ml Inj IV Q6H PRN Nausea And Vomiting Morphine Sulfate 2 mg 06/06/21 01:24 06/07/21 21:19 Morphine 2 Mg/1 Ml Inj IV 2 mg Q4H PRN Administration Pain, Moderate (4-6) Morphine Sulfate 4 mg 06/06/21 01:24 Morphine 4 Mg/1 Ml Inj IV Q4H PRN Pain , Severe (7-10) Ondansetron HCl 4 mg 06/06/21 01:24 06/06/21 09:45 Ondansetron 4 Mg/2 Ml Inj IV 4 mg Q8H PRN Administration Nausea And Vomiting Sodium Chloride 10 ml 06/06/21 10:00 06/07/21 21:19 Sodium Chloride 0.9% 10 Ml Flush Syringe IV 10 ml BID SUZANNA Administration Sodium Chloride 10 ml 06/06/21 01:24 Sodium Chloride 0.9% 10 Ml Flush Syringe IV PRN PRN LINE FLUSH Nutrition/Malnutrition Assess - Dietary Evaluation Nutrition/Malnutrition Findings: Nutrition Notes Start: 06/07/21 10:19 Freq: Status: Active Protocol: Document 06/07/21 10:19 GB (Rec: 06/07/21 10:51 GB [email or web address]) Nutrition Notes Need for Assessment generated from: MD Order Initial or Follow up Brief Note Other Pertinent Diagnosis consult for Diet education - routine Current Diet cardiac/consistant carbohydrate, supplement beverage Labs/Tests 06/07: Na 126, K 3.5, BUN 74, creatinine 7.2, glucose 379 Pertinent Medications Dextrose PRN, NaCl Height 5 ft 10 in Weight 58.9 kg [place] Body Weight (kg) 75.45 BMI 18.6 Weight change and time frame weight change of 8kg in one day noted. Reweigh requested for weight confirmation. Weight Status Underweight Subjective/Other Information Per MD note: chronic kidney disease stage V, possible to start hemodialysis Percent of energy/protein needs met: 75% or greater met with current PO intake of 100%. Burn Absent Trauma Absent Food Allergy No Minimum of two criteria No #1 Nutrition Diagnosis Food and nutrition-related knowledge deficit Comments: possible to start dialysis Etiology consult for nutrition education As Evidenced by Signs and Symptoms chronic kidney disease and possible new to start dialysis Is patient on ventilator? No Is Patient Ambulatory and/or Out of Bed Yes REE-([place]. Jeor-ambulatory/OOB) [ 2027.325 [id number]] Kcal/Kg value to use for calculation 30 Approximate Energy Requirements Using 1767 kcal/Kg Calculation Used for Recommendations Kcal/kg Additional Notes Protein: 1-1.4 g/kg @ 59k -83g Fluids: 1 ml/kcal or per MD Nutrition Intervention Change Diet Order: continue Goal #1 PO intake to maintain 75% or greater of meals TID daily for LOS Follow-Up By: 06/14/21 Additional Comments Education packet on chronic kidney disease provided.
[2021-06-08] MEDS: SODIUM CHLORIDE 0.9% 1000 ML 1,000 ML IV SCH (10:33)
[2021-06-08] MEDS ORDERED: INSULIN NPH/REGULAR 70/30 INJ SUB-Q SCH (12:00)
[2021-06-08] MEDS: INSULIN NPH/REGULAR 70/30 INJ SUB-Q SCH ×2 (15:48→16:54)
[2021-06-08] MEDS: DEXTROSE 50% IN WATER (25GM) 50 ML SYRINGE IV PRN ×3 (16:12→20:44)
[2021-06-08] MEDS: carvediloL 25 MG TAB PO SCH (21:18)
[2021-06-08] MEDS ORDERED: INSULIN GLARGINE 100 UNITS/ML SUB-Q SCH (22:00)
[2021-06-09] MEDS: SODIUM CHLORIDE 0.9% 1000 ML 1,000 ML IV SCH (01:29)
[2021-06-09] MEDS: HEPARIN 5,000 UNIT/1 ML VIAL SUB-Q SCH ×2 (05:57→13:36)
--- NOTE | 2021-06-09 09:18 | Progress Note ---
Assessment and Plan - Patient Problems (1) Acute kidney injury superimposed on CKD Current Visit: Yes Status: Acute Plan to address problem: Overall renal function is stable but remains markedly impaired. Despite IV fluid hydration I discussed with patient that this likely means that we are dealing with advanced chronic kidney disease stage V at this point. He is symptomatically not having any overt signs of uremia at present time. In fact he feels better than when he initially came in. Discussed with patient the importance of him following up very closely as an outpatient for likely initiation of hemodialysis. We will continue to monitor closely and obtain renal function panel daily while here in the hospital for further monitoring. No new labs this am. Will order renal function panel, and if it remains stable, and his glycemic control improves, then from renal standpoint he is stable for DC but needs close follow up with nephrology in one week. (2) Altered mental status Current Visit: Yes Status: Acute Plan to address problem: In the setting of hypoglycemia. Improving slowly since admission. (3) Hypoglycemia Current Visit: No Status: Acute Plan to address problem: Discontinued off the D5 half-normal saline secondary to hyperglycemia noted this morning. We will continue to monitor closely. (4) IDDM (insulin dependent diabetes mellitus) Current Visit: No Status: Chronic Plan to address problem: Diabetes management per primary attending. (5) Hypertensive chronic kidney disease with stage 1 through stage 4 chronic kid gabriella disease, or unspecified chronic kidney disease Current Visit: Yes Status: Chronic Plan to address problem: Monitor blood pressures under current regimen. Subjective Date of service: 06/09/21 Interval history: No acute changes. Working on improving his glycemic control. Objective - Vital Signs Vital signs: Vital Signs - 12hr 06/08/21 06/08/21 06/08/21 21:18 22:00 23:18 Temperature 97.8 F Pulse Rate 80 68 Respiratory 16 Rate Blood Pressure 157/69 130/70 O2 Sat by Pulse 97 97 Oximetry 06/09/21 03:28 Temperature 98.1 F Pulse Rate 72 Respiratory 16 Rate Blood Pressure 154/85 O2 Sat by Pulse 98 Oximetry - General Appearance General appearance: well-nourished, appears stated age EENT: ATNC Neck: no JVD Respiratory: Present: Clear to Ascultation Cardiology: regular Gastrointestinal: normal Integumentary: no rash, warm and dry Neurologic: no focal deficit, alert and oriented x3 Musculoskeletal: deferred Psychiatric: cooperative - Lab 06/07/21 04:11 06/08/21 21:50 Most recent lab results Calcium 8.5 mg/dL (8.4-10.2) 06/08/21 05:27 Magnesium 2.90 mg/dL (1.7-2.3) H 06/05/21 23:30 Urine Creatinine 92.5 mg/dL (0.1-20.0) H 06/06/21 21:09 Urine Sodium 34 mmol/L 06/06/21 21:09 - Allied health notes Allied health notes reviewed: nursing Medications & Allergies - Medications Allergies/Adverse Reactions: Allergies No Known Allergies Allergy (Verified 06/06/21 16:06) Home Medications: Home Medications Medication Instructions Recorded Confirmed Last Taken Type amLODIPine 10 mg PO DAILY #30 tablet 01/14/21 06/07/21 Unknown Rx carvediloL [Coreg] 25 mg PO BID #60 tablet 01/14/21 06/07/21 Unknown Rx Insulin NPH Hum/Reg Insulin Hm 20 units SC BIDPC 06/07/21 06/07/21 Unknown History [Novolin 70-30 100 Unit/ml Vial] Active Medications: Generic Name Dose Route Start Last Admin Trade Name Freq PRN Reason Stop Dose Admin Acetaminophen 650 mg 06/06/21 01:24 Acetaminophen 325 Mg Tab PO Q4H PRN Pain MILD(1-3)/Fever >100.5/KLEIN Amlodipine Besylate 10 mg 06/09/21 10:00 Amlodipine 10 Mg Tab PO DAILY SUZANNA Benzocaine 1 applic 06/07/21 17:23 06/07/21 23:23 Benzocaine 13 Ml Bottle (Orajel) MM 1 applic Q6H PRN Administration Mouth Pain Carvedilol 25 mg 06/08/21 22:00 06/08/21 21:18 Carvedilol 25 Mg Tab PO 25 mg BID SUZANNA Administration Dextrose 50 ml 06/06/21 06:14 06/08/21 20:44 Dextrose 50% In Water (25gm) 50 Ml Syringe IV 50 ml Q30MIN PRN Administration Hypoglycemia Protocol Heparin Sodium (Porcine) 5,000 unit 06/06/21 06:00 06/09/21 05:57 Heparin 5,000 Unit/1 Ml Vial SUB-Q 5,000 unit Q8HR SUZANNA Administration Hydralazine HCl 10 mg 06/06/21 06:17 06/08/21 04:10 Hydralazine 20 Mg/1 Ml Inj IV 10 mg Q4HR PRN Administration Blood Pressure Sodium Chloride 1,000 mls @ 75 mls/hr 06/07/21 08:00 06/09/21 05:56 Nacl 0.9% 1000 Ml IV Infused DIRECT SUZANNA Infusion Insulin Human Isoph/Insulin Regular 20 unit 06/08/21 12:00 06/08/21 16:54 Insulin Nph/Regular 70/30 Inj SUB-Q Not Given BIDDIAB SUZANNA Insulin Human Lispro 0 unit 06/07/21 08:30 06/08/21 20:40 Insulin Lispro 100 Unit/Ml SUB-Q Not Given ACHS [facility] Protocol Magnesium Hydroxide 30 ml 06/06/21 01:24 06/07/21 07:05 Magnesium Hydroxide (Mom) Oral Liqd Udc PO 30 ml Q4H PRN Administration Constipation Metoclopramide HCl 5 mg 06/06/21 12:00 Metoclopramide 10 Mg/2 Ml Inj IV Q6H PRN Nausea And Vomiting Morphine Sulfate 2 mg 06/06/21 01:24 06/07/21 21:19 Morphine 2 Mg/1 Ml Inj IV 2 mg Q4H PRN Administration Pain, Moderate (4-6) Morphine Sulfate 4 mg 06/06/21 01:24 Morphine 4 Mg/1 Ml Inj IV Q4H PRN Pain , Severe (7-10) Ondansetron HCl 4 mg 06/06/21 01:24 06/06/21 09:45 Ondansetron 4 Mg/2 Ml Inj IV 4 mg Q8H PRN Administration Nausea And Vomiting Sodium Chloride 10 ml 06/06/21 10:00 06/08/21 21:25 Sodium Chloride 0.9% 10 Ml Flush Syringe IV 10 ml BID SUZANNA Administration Sodium Chloride 10 ml 06/06/21 01:24 Sodium Chloride 0.9% 10 Ml Flush Syringe IV PRN PRN LINE FLUSH
[2021-06-09] MEDS: carvediloL 25 MG TAB PO SCH (09:34)
[2021-06-09] MEDS: INSULIN NPH/REGULAR 70/30 INJ SUB-Q SCH ×2 (09:34→17:49)
[2021-06-09] MEDS: INSULIN LISPRO 100 UNIT/ML SUB-Q SCH ×3 (09:34→17:48)
[2021-06-09] MEDS: hydrALAZINE 20 MG/1 ML INJ IV PRN (09:35)
[2021-06-09] MEDS ORDERED: ALUM-MAG HYDROXIDE-SIMETHICONE 200-200-20MG/5ML ORAL LIQD 30 ML PO PRN (10:00)
[2021-06-09] MEDS ORDERED: amLODIPine 10 MG TAB PO SCH (10:00)
[2021-06-09 12:31] VITALS: BP 108/70
== END 2021-06-09 19:15 | disposition home or self-care (01) | DRG 637 ==
LOC: ED 22:36 → 4A 06-06 01:24
PROVIDERS: ADMIT Internal Medicine Geriatric Medicine; ATTEND Hospitalist
DX: E10.649 Type 1 diabetes mellitus with hypoglycemia without coma (principal); G93.41 Metabolic encephalopathy; N17.9 Acute kidney failure, unspecified; E87.6 Hypokalemia; I12.9 Hypertensive chronic kidney disease with stage 1 through stage 4 chronic kidney disease, or unspecified chronic kidney disease; E10.22 Type 1 diabetes mellitus with diabetic chronic kidney disease; N18.30 Chronic kidney disease, stage 3 unspecified; Z82.49 Family history of ischemic heart disease and other diseases of the circulatory system; Z83.3 Family history of diabetes mellitus
CPT/HCPCS: 36415; 76770; 80048; 81001; 82436; 82570; 82947; 82962; 83735; 84300; 85025; 85610; G0378; J0360; J1644; J1815; J2270; J2405; J2765; J3480; J7030

== ENCOUNTER 2022-01-19 09:20 | Inpatient (IN) | payer SELFPAY ==
[2022-01-19 11:53] LABS: Basophils # (Auto) 0.1 K/mm3 (0.0-0.1); Eosinophils # (Auto) 0.2 K/mm3 (0.0-0.4); Eosinophils % (Auto) 3.5 % (0.0-4.3); Hematocrit 31.7 % (35.5-45.6); Hemoglobin 9.8 gm/dl (11.8-15.2); Lymphocytes # (Auto) 1.6 K/mm3 (1.2-5.4); Lymphocytes % (Auto) 25.8 % (13.4-35.0); Mean Corpuscular HGB Conc 31 % (32-34); Mean Corpuscular Volume 71 fl (84-94); Monocytes # (Auto) 0.2 K/mm3 (0.0-0.8); Monocytes % (Auto) 3.2 % (0.0-7.3); Platelet Count 236 K/mm3 (140-440); Red Blood Count 4.45 M/mm3 (3.65-5.03); Red Cell Distribution Width 17.6 % (13.2-15.2)
[2022-01-19 12:21] LABS: Calcium 9.1 mg/dL (8.4-10.2)
--- NOTE | 2022-01-19 12:34 | Emergency Department Report ---
ED General Adult HPI - General Chief complaint: High BP Stated complaint: HBP/DIALYSIS Time Seen by Provider: 01/19/22 11:11 Source: patient Mode of arrival: Wheelchair Limitations: No Limitations - History of Present Illness Initial comments: 31-year-old male with a past medical history of diabetes since age 4, hypertension, and right partial metatarsal amputation 1 month ago at [place] presents to the hospital with uncontrolled hypertension. Patient denies headache, chest pain, shortness of breath and continues to have urine output. He states he has been off of blood pressure medications for least 1 month since he did not receive a prescription upon discharge from [place]. He has only been on dialysis x1 month and goes Saturday and Saturday. Patient continues to receive frequent wound care of his amputated extremity consulting group analyst: Dr. Anders - Related Data Previous Rx's Medication Instructions Recorded Last Taken Type Insulin NPH Hum/Reg Insulin Hm 20 units SC BIDPC 30 Days vial 06/09/21 Unknown Rx [Novolin 70-30 100 Unit/ml Vial] amLODIPine 10 mg PO DAILY #30 tablet 01/19/22 Unknown Rx carvediloL [Coreg] 25 mg PO BID #60 tablet 01/19/22 Unknown Rx Allergies Allergy/AdvReac Type Severity Reaction Status Date / Time No Known Allergies Allergy Verified 06/06/21 16:06 ED Review of Systems ROS: Stated complaint: HBP/DIALYSIS Other details as noted in HPI Comment: All other systems reviewed and negative ED Past Medical Hx - Past Medical History Previous Medical History?: Yes Hx Hypertension: Yes Hx Congestive Heart Failure: No Hx Diabetes: Yes Hx Arthritis: No Hx Asthma: No Hx COPD: No - Surgical History Past Surgical History?: No - Social History Smoking Status: Never Smoker - Medications Home Medications: Home Medications Medication Instructions Recorded Confirmed Last Taken Type Insulin NPH Hum/Reg Insulin Hm 20 units SC BIDPC 30 Days vial 06/09/21 Unknown Rx [Novolin 70-30 100 Unit/ml Vial] amLODIPine 10 mg PO DAILY #30 tablet 01/19/22 Unknown Rx carvediloL [Coreg] 25 mg PO BID #60 tablet 01/19/22 Unknown Rx ED Physical Exam - General Limitations: No Limitations - Other Other exam information: General: No acute distress Head: Atraumatic Eyes: normal appearance ENT: Moist mucous membranes Neck: Normal appearance, no midline tenderness Chest: Clear to auscultation bilaterally. Right chest wall dialysis cath CV: Regular rate and rhythm Abdomen: Soft, normal bowel sounds, nontender, nondistended, no rebound or guarding Back: Normal inspection Extremity: Left foot metatarsal amputation Neuro: Alert O x 3, no facial asymmetry, speech clear, no gross motor sensory deficit Psych: Appropriate behavior Skin: No rash ED Course Vital Signs 01/19/22 01/19/22 01/19/22 10:14 10:42 10:46 Temperature 98.3 F Pulse Rate 87 Respiratory 18 Rate Blood Pressure 220/120 Blood Pressure [Right] O2 Sat by Pulse 100 100 100 Oximetry 01/19/22 01/19/22 01/19/22 10:48 11:00 11:16 Temperature 98.1 F Pulse Rate 89 90 89 Respiratory 18 19 15 Rate Blood Pressure 229/121 199/120 Blood Pressure 218/121 [Right] O2 Sat by Pulse 100 100 100 Oximetry 01/19/22 01/19/22 01/19/22 11:30 11:46 12:00 Temperature Pulse Rate 88 85 86 Respiratory 13 14 14 Rate Blood Pressure 202/121 184/118 219/121 Blood Pressure [Right] O2 Sat by Pulse 100 100 100 Oximetry 01/19/22 01/19/22 01/19/22 12:16 12:30 12:37 Temperature Pulse Rate 89 83 84 Respiratory 14 12 Rate Blood Pressure 223/120 230/126 216/122 Blood Pressure [Right] O2 Sat by Pulse 100 100 Oximetry 01/19/22 01/19/22 01/19/22 12:46 13:00 13:16 Temperature Pulse Rate 86 87 85 Respiratory 14 12 20 Rate Blood Pressure 223/112 175/97 207/113 Blood Pressure [Right] O2 Sat by Pulse 100 100 100 Oximetry 01/19/22 01/19/22 13:30 13:48 Temperature Pulse Rate 86 87 Respiratory 14 Rate Blood Pressure 203/115 193/115 Blood Pressure [Right] O2 Sat by Pulse Oximetry - Consultations Consultation #1: 01/19/22 14:35 dr Lake came to ED to elvira pt, plans to arrange for dialysis ED Medical Decision Making - Lab Data Result diagrams: 01/19/22 11:44 01/19/22 11:44 Lab Results 01/19/22 01/19/22 Range/Units 11:44 11:44 WBC 6.4 (4.5-11.0) K/mm3 RBC 4.45 (3.65-5.03) M/mm3 Hgb 9.8 L (11.8-15.2) gm/dl Hct 31.7 L (35.5-45.6) % MCV 71 L (84-94) fl MCH 22 L (28-32) pg MCHC 31 L (32-34) % RDW 17.6 H (13.2-15.2) % Plt Count 236 (140-440) K/mm3 Lymph % (Auto) 25.8 (13.4-35.0) % [place] % (Auto) 3.2 (0.0-7.3) % Eos % (Auto) 3.5 (0.0-4.3) % Baso % (Auto) 1.0 (0.0-1.8) % Lymph # (Auto) 1.6 (1.2-5.4) K/mm3 [place] # (Auto) 0.2 (0.0-0.8) K/mm3 Eos # (Auto) 0.2 (0.0-0.4) K/mm3 Baso # (Auto) 0.1 (0.0-0.1) K/mm3 Seg Neutrophils % 66.5 (40.0-70.0) % Seg Neutrophils # 4.2 (1.8-7.7) K/mm3 Sodium 138 (137-145) mmol/L Potassium 4.2 (3.6-5.0) mmol/L Chloride 94.4 L (98-107) mmol/L Carbon Dioxide 18 L (22-30) mmol/L Anion Gap 30 mmol/L BUN 64 H (9-20) mg/dL Creatinine 11.5 H (0.8-1.3) mg/dL Estimated GFR 6 ml/min BUN/Creatinine Ratio 6 % Glucose 198 H (75-100) mg/dL Calcium 9.1 (8.4-10.2) mg/dL - EKG Data -: EKG Interpreted by Me EKG shows normal: sinus rhythm, ST-T waves (no stemi) Rate: normal (91) - Medical Decision Making 31 yo male with a past medical history of dialysis on dialysis x1 month presents to the hospital with uncontrolled hypertension. Patient did not receive dialysis. Case discussed with consulting group analyst Dr. Lake who recommends admission for dialysis. Patient received multiple doses of IV labetalol and remains hypertensive. Hospitalist to admit - Differential Diagnosis Hypertensive emergency, volume overload, pulmonary edema, Critical Care Time: No Critical care attestation.: If time is entered above; I have spent that time in minutes in the direct care of this critically ill patient, excluding procedure time. ED Disposition Clinical Impression: Uncontrolled hypertension, ESRD needing dialysis, Noncompliance with medication regimen Disposition: ADMITTED INPATIENT Is pt being admited?: Yes Condition: Stable Instructions: Hypertension (ED) Prescriptions: amLODIPine 10 mg PO DAILY #30 tablet carvediloL [Coreg] 25 mg PO BID #60 tablet Time of Disposition: 14:36 (Dr. Burk)
--- NOTE | 2022-01-19 14:38 | History and Physical Report ---
History of Present Illness Chief complaint: I need dialysis History of present illness: 31 YO Male with ESRD on HD(M,W,F), HTN, DM presents ED for evaluation. Patient reports "I cannot get dialysis, and now I do not feel well". Patient presented to his outpatient dialysis center for his routine scheduled dialysis today. Patient was unable to undergo dialysis due to elevated blood pressure. Patient transported to [facility] via private vehicle for further care and evaluation of the aforementioned symptoms. The patient was seen and evaluated in the emergency department. All lab and imaging studies reviewed. Patient reports headache, dizziness. Patient found to have end-stage renal disease in need of urgent dial ysis, as well as hypertensive emergency. Patient admitted to medical floor due to increased risk of worsening symptoms. Nephrology team consulted in ED for urgent dialysis. Patient treated with IV antihypertensive therapy with hydralazine with mild improvement in symptoms. Patient denies fever, chills, chest pain, palpitation, productive cough, skin rash, recent contact, known exposure to COVID-19. Prior admission on 06/06/2021 reviewed. All medication listed at time of admission has been reconciled. Advanced care planning conducted in ED. Past History Past Medical History: diabetes, ESRD, hypertension Past Surgical History: Other (Dialysis access) Social history: . denies: smoking, alcohol abuse, prescription drug abuse Family history: diabetes, hypertension Medications and Allergies Allergies Allergy/AdvReac Type Severity Reaction Status Date / Time No Known Allergies Allergy Verified 06/06/21 16:06 Home Medications Medication Instructions Recorded Confirmed Last Taken Type Insulin NPH Hum/Reg Insulin Hm 20 units SC BIDPC 30 Days vial 06/09/21 Unknown Rx [Novolin 70-30 100 Unit/ml Vial] amLODIPine 10 mg PO DAILY #30 tablet 01/19/22 Unknown Rx carvediloL [Coreg] 25 mg PO BID #60 tablet 01/19/22 Unknown Rx Review of Systems Constitutional: weakness, no weight gain, no fever, no sweats Ears, nose, mouth and throat: no ear pain, no tinnitis, no decreased hearing, no nasal congestion, no nasal discharge Cardiovascular: no chest pain, no palpitations, no rapid/irregular heart beat, no edema, no syncope Respiratory: no cough, no cough with sputum, no shortness of breath Gastrointestinal: no abdominal pain, no nausea, no diarrhea, no change in bowel habits Genitourinary Male: no hematuria, no flank pain, no urinary frequency, no urinary hesitancy Rectal: no pain, no incontinence, no bleeding Musculoskeletal: no neck pain, no shooting arm pain, no arm numbness/tingling, no low back pain, no shooting leg pain Integumentary: no rash, no pruritis, no redness, no sores, no wounds, no jaundice Neurological: no weakness, no tingling, no syncope, no tremors Psychiatric: no anxiety, no change in sleep habits, no sleep disturbances, no hypersomnia, no change in appetite, no change in libido, no disorientation Endocrine: no cold intolerance, no heat intolerance, no polyphagia, no polydipsia, no excessive sweating Hematologic/Lymphatic: no easy bruising, no easy bleeding, no lymphadenopathy Allergic/Immunologic: no allergic rhinitis, no persistent infections, no anaphylaxis Exam - Constitutional Vitals: Temp Pulse Resp BP Pulse Ox 98.1 F 87 14 193/115 100 01/19/22 10:48 01/19/22 13:48 01/19/22 13:30 01/19/22 13:48 01/19/22 13:16 General appearance: Present: mild distress - EENT Eyes: Present: PERRL ENT: hearing intact, clear oral mucosa - Neck Neck: Present: supple, normal ROM - Respiratory Respiratory effort: normal Respiratory: bilateral: CTA - Cardiovascular Heart Sounds: Present: S1 & S2. Absent: rub, click - Extremities Extremities: pulses symmetrical, No edema Peripheral Pulses: within normal limits - Abdominal General gastrointestinal: Present: soft, non-tender, non-distended, normal bowel sounds Male genitourinary: Present: normal - Integumentary Integumentary: Present: clear, warm, dry - Musculoskeletal Musculoskeletal: gait normal, strength equal bilaterally - Psychiatric Psychiatric: appropriate mood/affect, intact judgment & insight - Neurologic Neurologic: CNII-XII intact, moves all extremities Results - Labs CBC & Chem 7: 01/19/22 11:44 01/19/22 11:44 Labs: Abnormal lab results 01/19/22 01/19/22 Range/Units 11:44 11:44 Hgb 9.8 L (11.8-15.2) gm/dl Hct 31.7 L (35.5-45.6) % MCV 71 L (84-94) fl MCH 22 L (28-32) pg MCHC 31 L (32-34) % RDW 17.6 H (13.2-15.2) % Chloride 94.4 L (98-107) mmol/L Carbon Dioxide 18 L (22-30) mmol/L BUN 64 H (9-20) mg/dL Creatinine 11.5 H (0.8-1.3) mg/dL Glucose 198 H (75-100) mg/dL Assessment and Plan - Patient Problems (1) Hypertensive emergency Current Visit: Yes Status: Acute Plan to address problem: Resume prehospital antihypertensive therapy. Hydralazine 10 mg IV every 6 hours as needed for systolic blood pressure greater than equal to 155 mmHg. (2) End stage renal disease Current Visit: Yes Status: Acute Plan to address problem: Nephrology team consulted in ED. Dialysis as per renal team, strict I's/O, monitor urine output every shift, daily weight, avoid nephrotoxic agents. (3) Diabetes Current Visit: Yes Status: Acute Plan to address problem: Consistent carbohydrate diet, Accu-Chek, insulin protocol, hypoglycemia protocol. (4) Noncompliance with medication regimen Current Visit: Yes Status: Acute Plan to address problem: Patient counseled regarding risk of worsening symptoms, worsening renal disease. Patient acknowledges understanding instructions. (5) DVT prophylaxis Current Visit: Yes Status: Acute Plan to address problem: SCD to bilateral lower extremities while in bed (6) Advance care planning Current Visit: Yes Status: Acute Plan to address problem: Disease education data, care plan discussed, diagnoses discussed, prognosis discussed, patient is full code. Patient knowledges understanding and agreement with care plan, +30 minutes. (7) Preventative health care Current Visit: Yes Status: Acute Plan to address problem: patient counseled regarding compliance with renal diet, medication compliance, and risk factor reduction. +15 minutes.
[2022-01-19] MEDS ORDERED: HYDROmorphone 1 MG/1 ML INJ IV PRN (14:42)
[2022-01-19] MEDS ORDERED: ONDANSETRON 4 MG/2 ML INJ IV PRN (14:42)
[2022-01-19] MEDS ORDERED: ACETAMINOPHEN 325 MG TAB PO PRN (14:42)
[2022-01-19] MEDS ORDERED: ALBUTEROL 2.5 MG/3 ML NEBU IH PRN (14:42)
[2022-01-19] MEDS ORDERED: oxyCODONE /ACETAMINOPHEN 5-325MG TAB PO PRN (14:42)
[2022-01-19] MEDS ORDERED: DEXTROSE 50% IN WATER (25GM) 50 ML SYRINGE IV PRN (14:45)
[2022-01-19] MEDS ORDERED: hydrALAZINE 20 MG/1 ML INJ IV PRN (14:47)
[2022-01-19] MEDS: carvediloL 25 MG TAB PO SCH ×2 (17:17→21:43)
[2022-01-19] MEDS: amLODIPine 10 MG TAB PO SCH (17:18)
[2022-01-19] MEDS: INSULIN LISPRO 100 UNIT/ML SUB-Q SCH ×2 (17:24→21:56)
[2022-01-19 18:11] LABS: Hepatitis B Surface Antigen Non-Reactive (Negative); Hepatitis C Virus Antibody Non-Reactive (NonReactive)
--- NOTE | 2022-01-19 22:43 | Consultation ---
History of Present Illness - History of Present Illness Thank you for the consultation ! Patient was evaluated today, Assessment and plan; #End-stage kidney disease: Patient will continue to receive hemodialysis treatment 3 times a week on Saturday and Saturday, schedule Patient was not dialyzed since Saturday due to uncontrolled hypertension and has returned back to the hospital Monitor dialysis related labs/monitor for any access issues Fluid restriction 1200 cc/day high-protein diet #Access: Needs to be monitored during dialysis #Hypertension and volume: Blood pressure goals were discussed with patient ideally should be under 150/80, if higher he needs adjustment of medication mostly it appears to be issues with noncompliance possibly with medication diet lifestyle and this is concerning. #Bone mineral disorder and secondary hyperparathyroidism; Monitor phosphorus binders as necessary goal phosphorus less than 5-1/2 #Diet and nutrition: Consider high-protein diet nutrition supplementation, educated about following a proper renal diet further education can be obtained from [employer] website as well as attached links, [email or web address] highly encouraged to logon #Medication recommendation: Please dose for creatinine clearance less than 15 cc/min All related questions have been addressed with the patient including diet lifestyle changes fluid restriction sodium restrictions avoidance of processed food as much as possible. Make a follow-up appointment in our office in a week or 2 If you have any questions regarding this patient's renal care please feel free to reach me at [phone] Author: Lance Lake M.D. [facility], 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 Secondary hyperparathyroidism Hypertension Current allergies: Reviewed from the current chart Social history: Reviewed from the current chart Family history: Reviewed from the current chart Review of system: Positive for poor compliance uncontrolled hypertension All other review of systems negative Physical examination Vitals: Reviewed General: No acute distress HEENT: Oral mucosa moist no pallor or icterus Neck: Supple without any JVD thyromegaly or nodular mass Chest: Clear to auscultation Heart: Regular rate and rhythm S1-S2 heard no S3-S4 Abdomen: Soft nontender, bowel sounds present no renal bruit no suprapubic masses no CVA tenderness noted Extremity: Minimal edema dry skin no peripheral cyanosis Endocrine: Thyroid not enlarged Psychiatric: No agitation and aggression noted Musculoskeletal: No joint effusion noted Labs and x-rays: Reviewed from this admission Past History Past Medical History: diabetes, ESRD, hypertension Past Surgical History: Other (Dialysis access) Social history: . denies: smoking, alcohol abuse, prescription drug abuse Family history: diabetes, hypertension Medications and Allergies Allergies Allergy/AdvReac Type Severity Reaction Status Date / Time No Known Allergies Allergy Verified 06/06/21 16:06 Home Medications Medication Instructions Recorded Confirmed Last Taken Type Insulin NPH Hum/Reg Insulin Hm 20 units SC BIDPC 30 Days vial 06/09/21 Unknown Rx [Novolin 70-30 100 Unit/ml Vial] amLODIPine 10 mg PO DAILY #30 tablet 01/19/22 Unknown Rx carvediloL [Coreg] 25 mg PO BID #60 tablet 01/19/22 Unknown Rx Active Meds: Active Medications Acetaminophen (Acetaminophen 325 Mg Tab) 650 mg PO Q4H PRN PRN Reason: Pain MILD(1-3)/Fever >100.5/KLEIN Albuterol (Albuterol 2.5 Mg/3 Ml Nebu) 2.5 mg IH Q4HRT PRN PRN Reason: Shortness Of Breath Amlodipine Besylate (Amlodipine 10 Mg Tab) 10 mg PO DAILY [facility] Last Admin: 01/19/22 17:18 Dose: 10 mg Carvedilol (Carvedilol 25 Mg Tab) 25 mg PO BID [facility] Last Admin: 01/19/22 21:43 Dose: 25 mg Dextrose (Dextrose 50% In Water (25gm) 50 Ml Syringe) 50 ml IV Q30MIN PRN; Protocol PRN Reason: Hypoglycemia Hydralazine HCl (Hydralazine 20 Mg/1 Ml Inj) 10 mg IV Q4HR PRN PRN Reason: Hypertension Hydromorphone HCl (Hydromorphone 1 Mg/1 Ml Inj) 0.5 mg IV Q23H PRN PRN Reason: Pain , Severe (7-10) Insulin Human Lispro (Insulin Lispro 100 Unit/Ml) 0 unit SUB-Q ACHS SUZANNA; Protocol Last Admin: 01/19/22 21:56 Dose: 6 unit Ondansetron HCl (Ondansetron 4 Mg/2 Ml Inj) 4 mg IV Q8H PRN PRN Reason: Nausea And Vomiting Oxycodone/Acetaminophen (Oxycodone /Acetaminophen 5-325mg Tab) 1 tab PO Q16H PRN PRN Reason: Pain, Moderate (4-6) Sodium Chloride (Sodium Chloride 0.9% 10 Ml Flush Syringe) 10 ml IV BID [facility] Last Admin: 01/19/22 21:43 Dose: 10 ml Sodium Chloride (Sodium Chloride 0.9% 10 Ml Flush Syringe) 10 ml IV PRN PRN PRN Reason: LINE FLUSH Exam - Vital Signs Vital signs: Vital Signs Temp Pulse Resp BP Pulse Ox 98.3 F 87 18 220/120 100 01/19/22 10:14 01/19/22 10:14 01/19/22 10:14 01/19/22 10:14 01/19/22 10:14 Results - Lab Results 01/19/22 11:44 01/19/22 11:44 Most recent lab results Calcium 9.1 mg/dL (8.4-10.2) 01/19/22 11:44
[2022-01-20] MEDS: INSULIN LISPRO 100 UNIT/ML SUB-Q SCH ×2 (08:44→12:43)
[2022-01-20] MEDS: amLODIPine 10 MG TAB PO SCH (09:02)
[2022-01-20] MEDS: carvediloL 25 MG TAB PO SCH (09:03)
--- NOTE | 2022-01-20 11:10 | Progress Note ---
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: To monitor and follow erythropoietin periodically goal hemoglobin between 10-11-1/2 Minimize lab draw in dialysis patients, if possible consider limiting to dialysis days Bone mineral disorder and secondary hyperparathyroidism; Monitor phosphorus binders as necessary goal phosphorus less than 5-1/2 #Diet and nutrition: High-protein diet, multivitamin, Nepro, #Medication recommendation: All related questions have been addressed with the patient including diet lifestyle changes fluid restriction sodium restrictions avoidance of processed food as much as possible Objective - Vital Signs Vital signs: Vital Signs - 12hr 01/20/22 01/20/22 01/20/22 04:24 08:22 08:55 Temperature 98.1 F Pulse Rate 80 Respiratory 16 Rate Blood Pressure 143/90 O2 Sat by Pulse 100 100 99 Oximetry 01/20/22 01/20/22 09:02 09:03 Temperature Pulse Rate 87 87 Respiratory Rate Blood Pressure 155/87 155/87 O2 Sat by Pulse Oximetry - Lab 01/19/22 11:44 01/19/22 11:44 Most recent lab results Calcium 9.1 mg/dL (8.4-10.2) 01/19/22 11:44 Medications & Allergies - Medications Allergies/Adverse Reactions: Allergies No Known Allergies Allergy (Verified 06/06/21 16:06) Home Medications: Home Medications Medication Instructions Recorded Confirmed Last Taken Type Insulin NPH Hum/Reg Insulin Hm 20 units SC BIDPC 30 Days vial 06/09/21 Unknown Rx [Novolin 70-30 100 Unit/ml Vial] amLODIPine 10 mg PO DAILY #30 tablet 01/19/22 Unknown Rx carvediloL [Coreg] 25 mg PO BID #60 tablet 01/19/22 Unknown Rx Active Medications: Generic Name Dose Route Start Last Admin Trade Name Freq PRN Reason Stop Dose Admin Acetaminophen 650 mg 01/19/22 14:42 Acetaminophen 325 Mg Tab PO Q4H PRN Pain MILD(1-3)/Fever >100.5/KLEIN Albuterol 2.5 mg 01/19/22 14:42 Albuterol 2.5 Mg/3 Ml Nebu IH Q4HRT PRN Shortness Of Breath Amlodipine Besylate 10 mg 01/19/22 14:44 01/20/22 09:02 Amlodipine 10 Mg Tab PO 10 mg DAILY SUZANNA Administration Carvedilol 25 mg 01/19/22 14:44 01/20/22 09:03 Carvedilol 25 Mg Tab PO 25 mg BID SUZANNA Administration Dextrose 50 ml 01/19/22 14:45 Dextrose 50% In Water (25gm) 50 Ml Syringe IV Q30MIN PRN Hypoglycemia Protocol Hydralazine HCl 10 mg 01/19/22 14:47 Hydralazine 20 Mg/1 Ml Inj IV Q4HR PRN Hypertension Hydromorphone HCl 0.5 mg 01/19/22 14:42 Hydromorphone 1 Mg/1 Ml Inj IV Q23H PRN Pain , Severe (7-10) Insulin Human Lispro 0 unit 01/19/22 16:30 01/20/22 08:44 Insulin Lispro 100 Unit/Ml SUB-Q 6 unit ACHS SUZANNA Administration Protocol Ondansetron HCl 4 mg 01/19/22 14:42 Ondansetron 4 Mg/2 Ml Inj IV Q8H PRN Nausea And Vomiting Oxycodone/Acetaminophen 1 tab 01/19/22 14:42 Oxycodone /Acetaminophen 5-325mg Tab PO Q16H PRN Pain, Moderate (4-6) Sodium Chloride 10 ml 01/19/22 22:00 01/20/22 09:04 Sodium Chloride 0.9% 10 Ml Flush Syringe IV 10 ml BID SUZANNA Administration Sodium Chloride 10 ml 01/19/22 14:42 Sodium Chloride 0.9% 10 Ml Flush Syringe IV PRN PRN LINE FLUSH
[2022-01-20 13:40] VITALS: BP 135/94
--- NOTE | 2022-01-20 13:54 | Discharge Summary ---
Providers - Providers Date of Admission: 01/19/22 14:42 Date of discharge: 01/20/22 Attending physician: BISMARK CORONA 01/19/22 14:30 Consult to Physician [CONS] Urgent Comment: Consulting Provider: ROHAN PAREDES Physician Instructions: Reason For Exam: esrd missed diaylsis, uncontrolled htn Primary care physician: SECURITY SERVICES SPECIALIST Hospitalization Condition: Stable Hospital course: 31 YO Male with ESRD on HD(M,W,F), HTN, DM presents ED for evaluation. Patient reported "I cannot get dialysis, and now I do not feel well". Patient presented to his outpatient dialysis center for his routine scheduled dialysis but was unable to undergo dialysis due to elevated blood pressure. Patient transported to [facility] and admitted to medical floor due to increased risk of worsening symptoms. Nephrology team consulted in ED for urgent dialysis. Patient treated with IV antihypertensive therapy with hydralazine with mild improvement in s ymptoms. Patient's home medications were resumed and had hemodialysis in the hospital. His blood pressure stabilized and following hemodialysis patient was feeling better. Patient was then cleared by machine cloth examiner for discharge, he was counseled to be compliant with his medications and was discharged home in stable condition with outpatient follow-up. Disposition: HOME / SELF CARE / HOMELESS Final Discharge Diagnosis (Prints w/discharge instructions): -- Hypertensive emergency. -- End stage renal disease. -- Diabetes. -- Noncompliance with medication regimen Time spent for discharge: 34 minutes Core Measure Documentation - Palliative Care Palliative Care/ Comfort Measures: Not Applicable - Core Measures Any of the following diagnoses?: none Exam - Physical Exam Narrative exam: GENERAL: well-developed and well-nourished lying on bed appeared to be in no discomfort. HEENT: Normocephalic. Atraumatic. No conjunctival congestion or icterus. Patient has moist mucous membranes. NECK: Supple. Trachea midline. CHEST/LUNGS: Clear to auscultated bilaterally, breathing nonlabored. No wheezes crackles or rhonchi. HEART/CARDIOVASCULAR: Regular in rate and rhythm. S1 and S2 positive. ABDOMEN: Abdomen is soft, nontender. Patient has normal bowel sounds. SKIN: There is no rash. Warm and dry. NEURO: No focal motor deficit. Follows command. MUSCULOSKELETAL: No joint effusion or tenderness. EXTRIMITY: No edema, no cyanosis or clubbing. PSYCH: Cooperative. - Constitutional Vitals: Temp Pulse Resp BP Pulse Ox 98.1 F 81 16 135/94 99 01/20/22 04:24 01/20/22 13:39 01/20/22 04:24 01/20/22 13:39 01/20/22 08:55 Plan Activity: advance as tolerated Weight Bearing Status: Weight Bear as Tolerated Diet: renal Special Instructions: restrict fluid intake to (1.2L ) Follow up with: PRIMARY CARE, [Primary Care Provider] - 7 Days Prescriptions: amLODIPine 10 mg PO DAILY #30 tablet hydrALAZINE [Apresoline TAB] 50 mg PO Q8HR #90 tablet carvediloL [Coreg] 25 mg PO BID #60 tablet
[2022-01-20] MEDS ORDERED: hydrALAZINE 25 MG TAB PO SCH (14:00)
--- NOTE | 2022-01-23 18:28 | Electrocardiograph Report ---
[facility] Test Date: 2022-01-19 Test Time: 10:41:02 Pat Name: CATRACHO LICEA Department: Room: A363 1 Gender: M Direct Entry Midwife: GP : 1990 Requested By: BISMARK CORONA Order Number: [id number] Reading MD: Tiffanie Mendez Measurements Intervals [place] Rate: 91 P: 55 NV: 147 QRS: -48 QRSD: 94 T: 31 QT: 388 QTc: 478 Interpretive Statements Sinus rhythm Left anterior fascicular block Left ventricle hypertrophy No previous ECG available for comparison Electronically Signed On 01-23-2022 18:27:34 EDT by Tiffanie Mendez
== END 2022-01-20 14:12 | disposition home or self-care (01) | DRG 304 ==
LOC: ED 09:20 → 3A 14:42
PROVIDERS: ADMIT Internal Medicine; ATTEND Internal Medicine
PROC: 5A1D70Z Performance of Urinary Filtration, Intermittent, Less than 6 Hours Per Day (ICD-10-PCS; principal; 2022-01-19)
DX: I16.1 Hypertensive emergency (principal); N18.6 End stage renal disease; E87.2 Acidosis; I10 Essential (primary) hypertension; I12.9 Hypertensive chronic kidney disease with stage 1 through stage 4 chronic kidney disease, or unspecified chronic kidney disease; Z91.14 Patient's other noncompliance with medication regimen; Z83.3 Family history of diabetes mellitus; Z82.49 Family history of ischemic heart disease and other diseases of the circulatory system
CPT/HCPCS: 36415; 80048; 80074; 82962; 85025; 93005; G0378; J3490; Q9967; J1815

== ENCOUNTER 2022-02-11 12:11 | Emergency (ER) | payer SELFPAY ==
[2022-02-11 12:37] VITALS: BP 196/104
[2022-02-11 13:42] LABS: Basophils # (Auto) 0.1 K/mm3 (0.0-0.1); Basophils % (Auto) 1.4 % (0.0-1.8); Eosinophils # (Auto) 0.2 K/mm3 (0.0-0.4); Eosinophils % (Auto) 3.4 % (0.0-4.3); Hematocrit 27.7 % (35.5-45.6); Hemoglobin 8.9 gm/dl (11.8-15.2); Lymphocytes # (Auto) 1.7 K/mm3 (1.2-5.4); Lymphocytes % (Auto) 33.6 % (13.4-35.0); Mean Corpuscular HGB Conc 32 % (32-34); Mean Corpuscular Volume 71 fl (84-94); Monocytes # (Auto) 0.3 K/mm3 (0.0-0.8); Monocytes % (Auto) 6.3 % (0.0-7.3); Platelet Count 194 K/mm3 (140-440); Red Cell Distribution Width 16.4 % (13.2-15.2)
[2022-02-11 14:05] LABS: Albumin 4.8 g/dL (3.9-5); Calcium 8.9 mg/dL (8.4-10.2)
== END 2022-02-12 03:20 | disposition left against medical advice (07) ==
LOC: ED 12:11
DX: Z00.00 Encounter for general adult medical examination without abnormal findings (principal); Z53.21 Procedure and treatment not carried out due to patient leaving prior to being seen by health care provider
CPT/HCPCS: 36415; 80053; 85025

== ENCOUNTER 2022-02-26 14:12 | Emergency (ER) | payer SELFPAY ==
[2022-02-26 14:20] VITALS: BP 162/91
[2022-02-26 15:01] LABS: Basophils % (Auto) 0.9 % (0.0-1.8); Eosinophils # (Auto) 0.2 K/mm3 (0.0-0.4); Eosinophils % (Auto) 3.9 % (0.0-4.3); Hematocrit 29.1 % (35.5-45.6); Lymphocytes # (Auto) 1.5 K/mm3 (1.2-5.4); Lymphocytes % (Auto) 30.8 % (13.4-35.0); Mean Corpuscular HGB Conc 31 % (32-34); Mean Corpuscular Volume 70 fl (84-94); Monocytes # (Auto) 0.2 K/mm3 (0.0-0.8); Monocytes % (Auto) 4.5 % (0.0-7.3); Platelet Count 195 K/mm3 (140-440); Red Blood Count 4.14 M/mm3 (3.65-5.03); Red Cell Distribution Width 16.8 % (13.2-15.2)
[2022-02-26 15:23] LABS: Albumin 4.4 g/dL (3.9-5); Calcium 8.7 mg/dL (8.4-10.2)
== END 2022-02-26 19:00 | disposition left against medical advice (07) ==
LOC: ED 14:12
DX: R04.0 Epistaxis (principal); Z53.21 Procedure and treatment not carried out due to patient leaving prior to being seen by health care provider
CPT/HCPCS: 36415; 80053; 83880; 84100; 85025

== ENCOUNTER 2022-03-09 10:07 | Inpatient (IN) | payer SELFPAY ==
[2022-03-09] MEDS ORDERED: SODIUM CHLORIDE 0.9% 1000 ML 1,000 ML IV ONE ×4 (10:09→14:14)
[2022-03-09] MEDS ORDERED: LORazepam 2 MG/ML VIAL IV ONE (10:12)
[2022-03-09] MEDS ORDERED: ZIPRASIDONE MESYLATE 20 MG VIAL IM ONE ×2 (10:33→10:35)
[2022-03-09] MEDS ORDERED: WATER FOR INJ Sterile (PF) 10 ML ONE (10:34)
[2022-03-09 10:50] LABS: Basophils % (Auto) 0.5 % (0.0-1.8); Eosinophils % (Auto) 0.6 % (0.0-4.3); Hematocrit 31.2 % (35.5-45.6); Hemoglobin 9.6 gm/dl (11.8-15.2); Lymphocytes % (Auto) 11.4 % (13.4-35.0); Mean Corpuscular HGB Conc 31 % (32-34); Mean Corpuscular Volume 72 fl (84-94); Monocytes # (Auto) 0.5 K/mm3 (0.0-0.8); Monocytes % (Auto) 5.9 % (0.0-7.3); Platelet Count 233 K/mm3 (140-440); Red Blood Count 4.33 M/mm3 (3.65-5.03); Red Cell Distribution Width 17.3 % (13.2-15.2)
[2022-03-09 11:14] LABS: Alanine Aminotransferase 14 units/L (7-56); Blood Urea Nitrogen 93 mg/dL (9-20); Calcium 7.9 mg/dL (8.4-10.2); Hemolysis Index 6
[2022-03-09 11:25] LABS: BUN/Creatinine Ratio 7
[2022-03-09 11:30] LABS: ABG Base Excess -6.8 mmol/L (-2.0-3.0); ABG HCO3 18.2 mmol/L (20.0-26.0); ABG Methemoglobin 0.6 % (0.0-1.5); ABG Oxygen Saturation 71.9 % (95.0-99.0); ABG PCO2 34.5 mm Hg; ABG PH 7.34 pH Units (7.350-7.450); ABG PO2 46.2 mm Hg (80.0-90.0)
[2022-03-09 11:31] LABS: Bilirubin,Direct < 0.2 mg/dL (0-0.2)
[2022-03-09] MEDS ORDERED: INSULIN REGULAR, HUMAN 100 UNITS/1 ML IV ONE (11:34)
[2022-03-09] MEDS ORDERED: DEXTROSE 50% IN WATER (25GM) 50 ML SYRINGE IV PRN (11:35)
[2022-03-09] MEDS ORDERED: hydrALAZINE 20 MG/1 ML INJ ONE (12:23)
[2022-03-09] MEDS ORDERED: hydrALAZINE 20 MG/1 ML INJ IV ONE (12:23)
--- NOTE | 2022-03-09 12:24 | Emergency Department Report ---
ED General Adult HPI - General Chief complaint: Seizure Stated complaint: SIEZURE Time Seen by Provider: 03/09/22 10:09 Source: EMS Mode of arrival: Stretcher Limitations: Altered Mental Status - History of Present Illness Initial comments: Patient is a 31-year-old male brought in by EMS for altered mental status. EMS reports patient had a seizure in route and gave him intranasal Ativan. Patient has history of seizures. Fingerstick blood glucose read critical high. - Related Data Previous Rx's Medication Instructions Recorded Last Taken Type Insulin NPH Hum/Reg Insulin Hm 20 units SC BIDPC 30 Days vial 06/09/21 Unknown Rx [Novolin 70-30 100 Unit/ml Vial] amLODIPine 10 mg PO DAILY #30 tablet 01/19/22 Unknown Rx carvediloL [Coreg] 25 mg PO BID #60 tablet 01/19/22 Unknown Rx hydrALAZINE [Apresoline TAB] 50 mg PO Q8HR #90 tablet 01/20/22 Unknown Rx Allergies Allergy/AdvReac Type Severity Reaction Status Date / Time No Known Allergies Allergy Verified 06/06/21 16:06 ED Review of Systems ROS: Stated complaint: SIEZURE Other details as noted in HPI Comment: Unobtainable due to pts medical conditions ED Past Medical Hx - Past Medical History Previous Medical History?: Yes Hx Hypertension: Yes Hx Congestive Heart Failure: No Hx Diabetes: Yes Hx Renal Disease: Yes Hx Arthritis: No Hx Asthma: No Hx COPD: No - Surgical History Additional Surgical History: November 15, 2021 surgery to amputate 5 toes on left foot secondary to infection - Social History Smoking Status: Unknown if ever smoked - Medications Home Medications: Home Medications Medication Instructions Recorded Confirmed Last Taken Type Insulin NPH Hum/Reg Insulin Hm 20 units SC BIDPC 30 Days vial 06/09/21 Unknown Rx [Novolin 70-30 100 Unit/ml Vial] amLODIPine 10 mg PO DAILY #30 tablet 01/19/22 Unknown Rx carvediloL [Coreg] 25 mg PO BID #60 tablet 01/19/22 Unknown Rx hydrALAZINE [Apresoline TAB] 50 mg PO Q8HR #90 tablet 01/20/22 Unknown Rx ED Physical Exam - General Limitations: Altered Mental Status General appearance: obtunded (Patient obtunded and writhing in bed) - Head Head exam: Present: atraumatic, normocephalic - Eye Eye exam: Present: normal appearance, EOMI - Respiratory Respiratory exam: Present: normal lung sounds bilaterally. Absent: respiratory distress - Cardiovascular Cardiovascular Exam: Present: regular rate, normal rhythm, normal heart sounds - GI/Abdominal GI/Abdominal exam: Present: soft. Absent: distended, tenderness - Rectal Rectal exam: Present: deferred - Neurological Exam Neurological exam: Present: altered - Skin Skin exam: Present: warm, dry, intact, normal color ED Course Vital Signs 03/09/22 03/09/22 03/09/22 10:10 10:12 10:16 Pulse Rate 98 H 98 H 96 H Respiratory 20 25 H 22 Rate Blood Pressure O2 Sat by Pulse 100 100 100 Oximetry 03/09/22 03/09/22 03/09/22 10:30 10:46 11:00 Pulse Rate 96 H 100 H 93 H Respiratory 20 21 16 Rate Blood Pressure 220/85 245/120 O2 Sat by Pulse 100 99 Oximetry 03/09/22 03/09/22 03/09/22 11:16 11:30 11:46 Pulse Rate 93 H 91 H 89 Respiratory 14 10 L 14 Rate Blood Pressure 226/106 244/116 244/116 O2 Sat by Pulse 100 100 Oximetry 03/09/22 03/09/22 03/09/22 12:00 12:16 12:30 Pulse Rate 96 H 91 H 94 H Respiratory 12 11 L 14 Rate Blood Pressure 241/111 230/107 237/107 O2 Sat by Pulse 80 L 89 80 L Oximetry 03/09/22 03/09/22 03/09/22 12:46 13:00 13:15 Pulse Rate 99 H 99 H 98 H Respiratory 17 10 L 15 Rate Blood Pressure 237/107 208/95 208/95 O2 Sat by Pulse 63 L 79 L 82 L Oximetry 03/09/22 13:30 Pulse Rate 97 H Respiratory 11 L Rate Blood Pressure 153/73 O2 Sat by Pulse Oximetry ED Medical Decision Making - Lab Data Result diagrams: 03/09/22 10:30 03/09/22 11:45 - Medical Decision Making Patient brought in by EMS for altered mental status, hyperglycemia and seizure. Patient agitated on arrival and given additional IV Ativan 2 mg. Four-point physical restraints applied for patient protection. Laboratory evaluation reveals serum glucose of 868, anion gap 41, bicarb of 13 with negative ketones. Suspect likely hyperglycemic hyperosmolar nonketotic state. Patient started on insulin drip in ED. He was also started on a Cardene infusion for severe hyperglycemia. Patient has history of hypertensive emergency. Will admit to ICU. Critical Care Time: Yes Critical care time in (mins) excluding proc time.: 60 Critical care attestation.: If time is entered above; I have spent that time in minutes in the direct care of this critically ill patient, excluding procedure time. ED Disposition Clinical Impression: HHNC (hyperglycemic hyperosmolar nonketotic coma), Hypertensive emergency, Seizure Disposition: ADMITTED INPATIENT Is pt being admited?: No Condition: Stable Instructions: Diabetes Mellitus Type 2 in Adults (ED), Hypertension (ED) Referrals: PRIMARY CARE, [Primary Care Provider] - 3-5 Days
[2022-03-09] MEDS: POTASSIUM CHLORIDE 10 MEQ 10 MEQ/100 ML BAG IV SCH ×4 (12:27→18:46)
[2022-03-09] MEDS ORDERED: niCARdipine DRIP 40 MG/200 ML BAG IV ONE (12:52)
[2022-03-09] MEDS: INSULIN REGULAR, HUMAN 100 UNITS in SODIUM CHLORIDE 0.9% 99 ML IV SCH ×2 (12:57→23:46)
[2022-03-09 13:13] LABS: Bilirubin,Urine NEG (Negative); Blood,Urine NEG (Negative); Color,Urine Straw (Yellow); Urobilinogen,Urine < 2.0 mg/dL (<2.0)
[2022-03-09 13:18] LABS: Protein,Urine >500 mg/dL (Negative)
[2022-03-09 13:24] LABS: BUN/Creatinine Ratio TNR; Blood Urea Nitrogen TNR mg/dL (9-20); Calcium TNR mg/dL (8.4-10.2)
[2022-03-09 13:25] LABS: Hemolysis Index TNR
[2022-03-09 15:05] LABS: Calcium 8.3 mg/dL (8.4-10.2)
[2022-03-09] MEDS: D5W/0.45% NACL/KCL 20 MEQ 20 MEQ/1,000 ML BAG IV SCH ×2 (16:17→22:07)
--- NOTE | 2022-03-09 18:02 | History and Physical Report ---
History of Present Illness Date of examination: 03/09/22 Date of admission: 03/09/2020 Chief complaint: Active sensorium since morning History of present illness: 31-year-old -Domin[place] male with type 1 diabetes since age 4 years old consult for ultrasound failure for this morning. Patient is on NovoLog 70/30 20 units twice a day and sliding scale. EMS was called because of apparent seizures and decreased sensorium. Decreased responsiveness. Patient had a recent left foot TMA in November 2021. Patient was diagnosed with end-stage renal disease in November 2021. Patient on dialysis 3 times a week. Patient follows with Dr. Anders of [facility] nephrology group. No nausea or vomiting. No fever or chills. Patient had a high glucose of around 800. Increased anion gap. Was reported initially and changed to do not report status. - Past Medical History --Previous Medical History?: Yes --Hypertension: Yes --Diabetes: Yes --Renal Disease: Yes - Surgical History --Additional Surgical History: November 15, 2021 surgery to amputate 5 toes on left foot secondary to infection - Social History --Smoking Status: Unknown if ever smoked - Medications --Home Medications: Home Medications Medication Instructions Recorded Confirmed Last Taken Type Insulin NPH Hum/Reg Insulin Hm 20 units SC BIDPC 30 Days vial 06/09/21 Unknown Rx [Novolin 70-30 100 Unit/ml Vial] amLODIPine 10 mg PO DAILY #30 tablet 01/19/22 Unknown Rx carvediloL [Coreg] 25 mg PO BID #60 tablet 01/19/22 Unknown Rx hydrALAZINE [Apresoline TAB] 50 mg PO Q8HR #90 tablet 01/20/22 Unknown Rx Review of Systems ROS: Constitutional no weight loss or weight gain no fever or chills HEENT no sore throat no post nasal drip no diplopia Neck no neck stiffness no lymph gland enlargement Chest and lungs no shortness of breath cough or wheezing CVS no chest pain no diaphoresis no palpitations GI no nausea no vomiting no diarrhea Genitourinary system no dysuria no flank pain Musculoskeletal system no muscle pains no joint pains [employer]LECT[employer]CH[employer]IC altered sensorium and seizures Skin no rash no itching Psychiatric no depression no homicidal or suicidal tendencies Hematologic no lymphedema or bruising Endocrine no polydipsia no polyuria no cold intolerance no heat intolerance Medications and Allergies Allergies Allergy/AdvReac Type Severity Reaction Status Date / Time No Known Allergies Allergy Verified 06/06/21 16:06 Home Medications Medication Instructions Recorded Confirmed Last Taken Type Insulin NPH Hum/Reg Insulin Hm 20 units SC BIDPC 30 Days vial 06/09/21 Unknown Rx [Novolin 70-30 100 Unit/ml Vial] amLODIPine 10 mg PO DAILY #30 tablet 01/19/22 Unknown Rx carvediloL [Coreg] 25 mg PO BID #60 tablet 01/19/22 Unknown Rx hydrALAZINE [Apresoline TAB] 50 mg PO Q8HR #90 tablet 01/20/22 Unknown Rx Active Meds: Active Medications Dextrose (Dextrose 50% In Water (25gm) 50 Ml Syringe) 0 ml IV Q30MIN PRN; Protocol PRN Reason: Hypoglycemia Insulin Human Regular 100 (units/ Sodium Chloride) 100 mls @ 1 mls/hr IV TITR SUZANNA; Protocol Last Titration: 03/09/22 17:10 Dose: 0 units/hr, 0 mls/hr Potassium Chloride/Dextrose/Sod Cl (D5w/0.45% Nacl/Kcl 20 Meq) 20 meq in 1,000 mls @ 125 mls/hr IV DIRECT SUZANNA Last Admin: 03/09/22 16:17 Dose: 125 mls/hr Potassium Chloride (Kcl 10meq/100ml) 10 meq in 100 mls @ 100 mls/hr IV Q1H SUZANNA Stop: 03/09/22 17:59 Last Admin: 03/09/22 17:10 Dose: Not Given Nicardipine/Sodium Chloride (Cardene Drip 40 Mg/200 Ml) 40 mg in 200 mls @ 25 mls/hr IV ONCE ONE; Protocol Stop: 03/09/22 20:51 Last Titration: 03/09/22 15:28 Dose: 0 mg/hr, 0 mls/hr Exam - Constitutional Vitals: Temp Pulse Resp BP Pulse Ox 99 H 19 137/77 81 L 03/09/22 14:16 03/09/22 15:16 03/09/22 15:16 03/09/22 15:00 General appearance: Present: mild distress, well-nourished - EENT Eyes: Present: PERRL ENT: hearing intact, clear oral mucosa - Neck Neck: Present: supple, normal ROM - Respiratory Respiratory effort: normal Respiratory: bilateral: CTA - Cardiovascular Heart rate: 98 Rhythm: regular Heart Sounds: Present: S1 & S2. Absent: rub, click - Extremities Extremities: no ischemia, pulses intact, pulses symmetrical, No edema, abnormal (Left foot TMA) Extremity abnormal: other (Left foot TMA) Peripheral Pulses: within normal limits - Abdominal General gastrointestinal: Present: soft, non-tender, non-distended, normal bowel sounds Male genitourinary: Present: normal - Integumentary Integumentary: Present: clear, warm, dry - Musculoskeletal Musculoskeletal: gait normal, strength equal bilaterally - Psychiatric Psychiatric: appropriate mood/affect, intact judgment & insight - Neurologic Neurologic: CNII-XII intact, moves all extremities Results - Labs CBC & Chem 7: 03/10/22 04:55 03/10/22 04:55 Labs: Laboratory Last Values WBC 8.4 K/mm3 (4.5-11.0) 03/09/22 10:30 RBC 4.33 M/mm3 (3.65-5.03) 03/09/22 10:30 Hgb 9.6 gm/dl (11.8-15.2) L 03/09/22 10:30 Hct 31.2 % (35.5-45.6) L 03/09/22 10:30 MCV 72 fl (84-94) L 03/09/22 10:30 MCH 22 pg (28-32) L 03/09/22 10:30 MCHC 31 % (32-34) L 03/09/22 10:30 RDW 17.3 % (13.2-15.2) H 03/09/22 10:30 Plt Count 233 K/mm3 (140-440) 03/09/22 10:30 Lymph % (Auto) 11.4 % (13.4-35.0) L 03/09/22 10:30 [place] % (Auto) 5.9 % (0.0-7.3) 03/09/22 10:30 Eos % (Auto) 0.6 % (0.0-4.3) 03/09/22 10:30 Baso % (Auto) 0.5 % (0.0-1.8) 03/09/22 10:30 Lymph # (Auto) 1.0 K/mm3 (1.2-5.4) L 03/09/22 10:30 [place] # (Auto) 0.5 K/mm3 (0.0-0.8) 03/09/22 10:30 Eos # (Auto) 0.0 K/mm3 (0.0-0.4) 03/09/22 10:30 Baso # (Auto) 0.0 K/mm3 (0.0-0.1) 03/09/22 10:30 Seg Neutrophils % 81.6 % (40.0-70.0) H 03/09/22 10:30 Seg Neutrophils # 6.8 K/mm3 (1.8-7.7) 03/09/22 10:30 ABG pH 7.340 pH Units (7.350-7.450) L 03/09/22 11:15 ABG pCO2 34.5 mm Hg 03/09/22 11:15 ABG pO2 46.2 mm Hg (80.0-90.0) L 03/09/22 11:15 ABG HCO3 18.2 mmol/L (20.0-26.0) L 03/09/22 11:15 ABG O2 Saturation 71.9 % (95.0-99.0) L 03/09/22 11:15 ABG O2 Content 9.2 (0.0-44) 03/09/22 11:15 ABG Base Excess -6.8 mmol/L (-2.0-3.0) L 03/09/22 11:15 ABG Hemoglobin 9.3 gm/dl (14.0-18.0) L 03/09/22 11:15 ABG Carboxyhemoglobin 1.8 % (0.0-5.0) 03/09/22 11:15 ABG Methemoglobin 0.6 % (0.0-1.5) 03/09/22 11:15 Oxyhemoglobin 70.1 % (95.0-99.0) L 03/09/22 11:15 FiO2 21 % 03/09/22 11:15 Sodium 132 mmol/L (137-145) L D 03/09/22 13:54 Potassium 3.2 mmol/L (3.6-5.0) L D 03/09/22 13:54 Chloride 84.5 mmol/L (98-107) L 03/09/22 13:54 Carbon Dioxide 17 mmol/L (22-30) L 03/09/22 13:54 Anion Gap 34 mmol/L 03/09/22 13:54 BUN 93 mg/dL (9-20) H 03/09/22 13:54 Creatinine 13.6 mg/dL (0.8-1.3) H 03/09/22 13:54 Estimated GFR 5 ml/min 03/09/22 13:54 BUN/Creatinine Ratio 7 % 03/09/22 13:54 Glucose 478 mg/dL (75-100) H 03/09/22 13:54 POC Glucose 99 mg/dL (70-105) 03/09/22 17:09 Ketones Quantitative Negative (Negative) 03/09/22 10:30 Calcium 8.3 mg/dL (8.4-10.2) L 03/09/22 13:54 Phosphorus 11.80 mg/dL (2.5-4.5) H 03/09/22 11:50 Magnesium 3.30 mg/dL (1.7-2.3) H 03/09/22 11:50 Total Bilirubin 0.30 mg/dL (0.1-1.2) 03/09/22 10:30 Direct Bilirubin < 0.2 mg/dL (0-0.2) 03/09/22 10:30 Indirect Bilirubin 0.1 mg/dL 03/09/22 10:30 AST 21 units/L (5-40) 03/09/22 10:30 ALT 14 units/L (7-56) 03/09/22 10:30 Alkaline Phosphatase 98 units/L (35-129) 03/09/22 10:30 Total Protein 6.8 g/dL (6.3-8.2) 03/09/22 10:30 Albumin 4.0 g/dL (3.9-5) 03/09/22 10:30 Albumin/Globulin Ratio 1.4 % 03/09/22 10:30 Urine Color Straw (Yellow) 03/09/22 10:09 Urine Turbidity Clear (Clear) 03/09/22 10:09 Urine pH 7.0 (5.0-7.0) 03/09/22 10:09 Ur Specific [place] 1.011 (1.003-1.030) 03/09/22 10:09 Urine Protein >500 mg/dL (Negative) 03/09/22 10:09 Urine Glucose (UA) >=500 mg/dL (Negative) 03/09/22 10:09 Urine Ketones Tr mg/dL (Negative) 03/09/22 10:09 Urine Blood Neg (Negative) 03/09/22 10:09 Urine Nitrite Neg (Negative) 03/09/22 10:09 Urine Bilirubin Neg (Negative) 03/09/22 10:09 Urine Urobilinogen < 2.0 mg/dL (<2.0) 03/09/22 10:09 Ur Leukocyte Esterase Neg (Negative) 03/09/22 10:09 Urine WBC (Auto) 4.0 /HPF (0.0-6.0) 03/09/22 10:09 Urine RBC (Auto) 1.0 /HPF (0.0-6.0) 03/09/22 10:09 Short CBC 03/09/22 Range/Units 10:30 WBC 8.4 (4.5-11.0) K/mm3 Hgb 9.6 L (11.8-15.2) gm/dl Hct 31.2 L (35.5-45.6) % Plt Count 233 (140-440) K/mm3 BMP 03/09/22 03/09/22 03/09/22 10:30 11:45 13:54 Sodium 121 L TNR 132 L D Potassium 4.3 TNR 3.2 L D Chloride 71.7 L TNR 84.5 L Carbon Dioxide 13 L TNR 17 L BUN 93 H TNR 93 H Creatinine 13.3 H TNR 13.6 H Glucose 868 H* TNR 478 H Calcium 7.9 L TNR 8.3 L Liver Function 03/09/22 Range/Units 10:30 Total Bilirubin 0.30 (0.1-1.2) mg/dL Direct Bilirubin < 0.2 (0-0.2) mg/dL AST 21 (5-40) units/L ALT 14 (7-56) units/L Alkaline Phosphatase 98 (35-129) units/L Albumin 4.0 (3.9-5) g/dL Urine 03/09/22 Range/Units 10:09 Urine Color Straw (Yellow) Urine pH 7.0 (5.0-7.0) Ur Specific [place] 1.011 (1.003-1.030) Urine Protein >500 (Negative) mg/dL Urine Glucose (UA) >=500 (Negative) mg/dL Short CBC 03/09/22 03/10/22 Range/Units 10:30 04:55 WBC 8.4 9.2 (4.5-11.0) K/mm3 Hgb 9.6 L 9.9 L (11.8-15.2) gm/dl Hct 31.2 L 31.8 L (35.5-45.6) % Plt Count 233 215 (140-440) K/mm3 BMP 03/09/22 03/09/22 03/09/22 10:30 11:45 13:54 Sodium 121 L TNR 132 L D Potassium 4.3 TNR 3.2 L D Chloride 71.7 L TNR 84.5 L Carbon Dioxide 13 L TNR 17 L BUN 93 H TNR 93 H Creatinine 13.3 H TNR 13.6 H Glucose 868 H* TNR 478 H Calcium 7.9 L TNR 8.3 L 03/09/22 03/09/22 03/10/22 17:32 19:58 03:56 Sodium 135 L 135 L 137 Potassium 3.5 L 3.4 L 3.3 L Chloride 89.9 L 90.3 L 95.0 L Carbon Dioxide 22 19 L 23 BUN 93 H 90 H 93 H Creatinine 12.6 H 13.2 H 12.8 H Glucose 77 95 173 H Calcium 8.8 8.3 L 8.8 03/10/22 04:55 Sodium 137 Potassium 3.2 L Chloride 94.5 L Carbon Dioxide 23 BUN 92 H Creatinine 12.9 H Glucose 136 H Calcium 9.0 Liver Function 03/09/22 Range/Units 10:30 Total Bilirubin 0.30 (0.1-1.2) mg/dL Direct Bilirubin < 0.2 (0-0.2) mg/dL AST 21 (5-40) units/L ALT 14 (7-56) units/L Alkaline Phosphatase 98 (35-129) units/L Albumin 4.0 (3.9-5) g/dL Urine 03/09/22 Range/Units 10:09 Urine Color Straw (Yellow) Urine pH 7.0 (5.0-7.0) Ur Specific [place] 1.011 (1.003-1.030) Urine Protein >500 (Negative) mg/dL Urine Glucose (UA) >=500 (Negative) mg/dL Assessment and Plan Assessment and plan: Critical care statement The high probability OF a clinically significant sudden or life-threatening deterioration of the cardiorespiratory system and endocrine system required my full and direct attention, intervention and postoperative management. The aggregate critical care time was 40 minutes. The time is in addition to time spent performing reported procedures but includes the followin: Data review and interpretation 2: Patient assessment and monitoring of vital signs 3: Documentation 4:: Medication orders and management Advance Directives: Yes (Full code) VTE prophylaxis?: Chemical Plan of care discussed with patient/family: Yes - Patient Problems (1) Acute metabolic encephalopathy Current Visit: Yes Status: Acute Plan to address problem: Secondary to severe DKA Corrected glucose levels and electrolyte levels and uremia (2) DKA, type 1 Current Visit: Yes Status: Acute Qualifiers: Diabetes mellitus complication detail: with coma Qualified Code(s): E10.11 - Type 1 diabetes mellitus with ketoacidosis with coma Plan to address problem: Patient with altered sensorium Severe DKA Increased anion gap IV insulin drip Titrate to bring blood glucose levels around 100-140 IV fluids (3) ESRD needing dialysis Current Visit: No Status: Chronic Plan to address problem: Dialysis as per schedule Nephrology consult requested (4) Hypertension Current Visit: Yes Status: Chronic Qualifiers: Hypertension type: primary hypertension Qualified Code(s): I10 - Essential (primary) hypertension Plan to address problem: Continue antihypertensives (5) DVT prophylaxis Current Visit: No Status: Acute (6) Advance care planning Current Visit: Yes Status: Acute Plan to address problem: Disease education conducted, care plan discussed, diagnosis discussed, prognosis discussed. Patient is full code. Family and patient acknowledges understanding and agreement with care plan. +30 minutes.
[2022-03-09] MEDS ORDERED: METOCLOPRAMIDE 10 MG/2 ML INJ IV PRN (18:05)
[2022-03-09] MEDS ORDERED: ONDANSETRON 4 MG/2 ML INJ IV PRN (18:05)
[2022-03-09] MEDS ORDERED: HYDROmorphone 0.5 MG/0.5 ML INJ IV PRN (18:05)
[2022-03-09] MEDS ORDERED: MORPHINE 2 MG/1 ML INJ IV PRN (18:05)
[2022-03-09] MEDS ORDERED: ACETAMINOPHEN 325 MG TAB PO PRN (18:05)
[2022-03-09] MEDS ORDERED: POTASSIUM CHLORIDE 10 MEQ 10 MEQ/100 ML BAG IV PRN ×2 (18:15)
[2022-03-09 18:39] LABS: Calcium 8.8 mg/dL (8.4-10.2)
[2022-03-09 20:29] LABS: Calcium 8.3 mg/dL (8.4-10.2)
[2022-03-09] MEDS: HEPARIN 5,000 UNIT/1 ML VIAL SUB-Q SCH (22:08)
[2022-03-09] MEDS: FAMOTIDINE 20 MG/2 ML INJ IV SCH (22:08)
[2022-03-10 04:33] LABS: Calcium 8.8 mg/dL (8.4-10.2)
[2022-03-10 05:13] LABS: Hematocrit 31.8 % (35.5-45.6); Hemoglobin 9.9 gm/dl (11.8-15.2); Mean Corpuscular HGB Conc 31 % (32-34); Platelet Count 215 K/mm3 (140-440); Red Cell Distribution Width 16.6 % (13.2-15.2)
[2022-03-10 05:17] LABS: Mean Corpuscular Volume 69 fl (84-94)
[2022-03-10] MEDS: D5W/0.45% NACL/KCL 20 MEQ 20 MEQ/1,000 ML BAG IV SCH (06:07)
--- NOTE | 2022-03-10 08:10 | Progress Note ---
Assessment and Plan Assessment and plan: History of present illness: 31-year-old -[place] male with type 1 diabetes since age 4 years old consult for ultrasound failure for this morning. Patient is on NovoLog 70/30 20 units twice a day and sliding scale. EMS was called because of apparent seizures and decreased sensorium. Decreased responsiveness. Patient had a recent left foot TMA in November 2021. Patient was diagnosed with end-stage renal disease in November 2021. Patient on dialysis 3 times a week. Patient follows with Dr. Anders of [facility] nephrology group. No nausea or vomiting. No fever or chills. Patient had a high glucose of around 800. Increased anion gap. Was reported initially and changed to do not report status. Hospital Course: 03/10: No further seizures noted this admission. Encephalopathy likely multifactorial from DKA and uremia. DKA corrected now, d/c dka protocol. start diabetic cld and resume home insulin regimen. will need HD as well. questionable compliance. Will follow nephrology plan. Assessment and Plan: #Diabetic ketoacidosis - BG 868, A , HCO3: 13, BG in Urine glucose elevated, urine ketones trace, - home regimen: Novlog 70/30 30 units subq bid. 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 - monitor electrolytes - neurochecks q1hr. 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 - HD per nephrology - avoid nephrotoxins,renally adjust meds - follow on serial bmp #Hypokalemia - correct with IVF and dialysis - erp - follow on serial bmp #Hypertensive emergency - on cardene IV initially - strated on amlodpine 10 mg qdaily, hydralazine 100 mg po tid - labetalol 10 mg q4hr prn. #Preventative health care - preventative health counseling regarding management of life stressors, medication compliance and overall effect of chronic medical conditions on overall health. Encourage patient to follow up closely with with OP providers +30 minutes. The high probability of a clinically significant, sudden or life threatening deterioration of the [multi] system(s) required my full and direct attention, intervention and personal management. The aggregate critical care time was [60] minutes. This time is in addition to time spent performing reported procedures but includes the following: [x] Data Review and interpretation [x] Patient assessment and monitoring of vital signs [x] Documentation [x] Medication orders and management History Interval history: Resting comfortably no acute complaints. Not in any distress. Hospitalist Physical - Physical exam Narrative exam: Physical Exam: VITAL SIGNS: Reviewed. GENERAL: The patient appears normally developed, Vital signs as documented. confused HEAD: No signs of head trauma. EYES: Pupils are equal. Extraocular motions intact. EARS: Hearing grossly intact. MOUTH: Oropharynx is normal. NECK: No adenopathy, no JVD. CHEST: Chest with clear breath sounds bilaterally. No wheezes, rales, or rhonchi. CARDIAC: Regular rate and rhythm. S1 and S2, without murmurs, gallops, or rubs. VASCULAR: No Edema. Peripheral pulses normal and equal in all extremities. ABDOMEN: Soft, non tender and non distended. No rebound or guarding, and no masses palpated. Bowel Sounds normal. MUSCULOSKELETAL: left tma noted NEUROLOGIC EXAM: confused. no focal sensory or strength deficits. PSYCHIATRIC: confused SKIN: detail exam as documented in skin assessment - Constitutional Vitals: Temp Pulse Resp BP Pulse Ox 98.1 F 85 16 139/77 100 03/10/22 03:34 03/10/22 04:00 03/09/22 20:46 03/09/22 20:46 03/10/22 04:00 General appearance: Present: mild distress, well-nourished Results - Labs CBC & Chem 7: 03/10/22 04:55 03/10/22 04:55 Labs: Laboratory Last Values WBC 9.2 K/mm3 (4.5-11.0) 03/10/22 04:55 RBC 4.60 M/mm3 (3.65-5.03) 03/10/22 04:55 Hgb 9.9 gm/dl (11.8-15.2) L 03/10/22 04:55 Hct 31.8 % (35.5-45.6) L 03/10/22 04:55 MCV 69 fl (84-94) L 03/10/22 04:55 MCH 21 pg (28-32) L 03/10/22 04:55 MCHC 31 % (32-34) L 03/10/22 04:55 RDW 16.6 % (13.2-15.2) H 03/10/22 04:55 Plt Count 215 K/mm3 (140-440) 03/10/22 04:55 Lymph % (Auto) 11.4 % (13.4-35.0) L 03/09/22 10:30 [place] % (Auto) 5.9 % (0.0-7.3) 03/09/22 10:30 Eos % (Auto) 0.6 % (0.0-4.3) 03/09/22 10:30 Baso % (Auto) 0.5 % (0.0-1.8) 03/09/22 10:30 Lymph # (Auto) 1.0 K/mm3 (1.2-5.4) L 03/09/22 10:30 [place] # (Auto) 0.5 K/mm3 (0.0-0.8) 03/09/22 10:30 Eos # (Auto) 0.0 K/mm3 (0.0-0.4) 03/09/22 10:30 Baso # (Auto) 0.0 K/mm3 (0.0-0.1) 03/09/22 10:30 Seg Neutrophils % 81.6 % (40.0-70.0) H 03/09/22 10:30 Seg Neutrophils # 6.8 K/mm3 (1.8-7.7) 03/09/22 10:30 ABG pH 7.340 pH Units (7.350-7.450) L 03/09/22 11:15 ABG pCO2 34.5 mm Hg 03/09/22 11:15 ABG pO2 46.2 mm Hg (80.0-90.0) L 03/09/22 11:15 ABG HCO3 18.2 mmol/L (20.0-26.0) L 03/09/22 11:15 ABG O2 Saturation 71.9 % (95.0-99.0) L 03/09/22 11:15 ABG O2 Content 9.2 (0.0-44) 03/09/22 11:15 ABG Base Excess -6.8 mmol/L (-2.0-3.0) L 03/09/22 11:15 ABG Hemoglobin 9.3 gm/dl (14.0-18.0) L 03/09/22 11:15 ABG Carboxyhemoglobin 1.8 % (0.0-5.0) 03/09/22 11:15 ABG Methemoglobin 0.6 % (0.0-1.5) 03/09/22 11:15 Oxyhemoglobin 70.1 % (95.0-99.0) L 03/09/22 11:15 FiO2 21 % 03/09/22 11:15 Sodium 137 mmol/L (137-145) 03/10/22 04:55 Potassium 3.2 mmol/L (3.6-5.0) L 03/10/22 04:55 Chloride 94.5 mmol/L (98-107) L 03/10/22 04:55 Carbon Dioxide 23 mmol/L (22-30) 03/10/22 04:55 Anion Gap 23 mmol/L 03/10/22 04:55 BUN 92 mg/dL (9-20) H 03/10/22 04:55 Creatinine 12.9 mg/dL (0.8-1.3) H 03/10/22 04:55 Estimated GFR 6 ml/min 03/10/22 04:55 BUN/Creatinine Ratio 7 % 03/10/22 04:55 Glucose 136 mg/dL (75-100) H 03/10/22 04:55 POC Glucose 105 mg/dL (70-105) 03/10/22 07:55 Ketones Quantitative Negative (Negative) 03/09/22 10:30 Calcium 9.0 mg/dL (8.4-10.2) 03/10/22 04:55 Phosphorus 9.00 mg/dL (2.5-4.5) H D 03/09/22 19:58 Magnesium 3.10 mg/dL (1.7-2.3) H 03/09/22 19:58 Total Bilirubin 0.30 mg/dL (0.1-1.2) 03/09/22 10:30 Direct Bilirubin < 0.2 mg/dL (0-0.2) 03/09/22 10:30 Indirect Bilirubin 0.1 mg/dL 03/09/22 10:30 AST 21 units/L (5-40) 03/09/22 10:30 ALT 14 units/L (7-56) 03/09/22 10:30 Alkaline Phosphatase 98 units/L (35-129) 03/09/22 10:30 Total Protein 6.8 g/dL (6.3-8.2) 03/09/22 10:30 Albumin 4.0 g/dL (3.9-5) 03/09/22 10:30 Albumin/Globulin Ratio 1.4 % 03/09/22 10:30 Urine Color Straw (Yellow) 03/09/22 10:09 Urine Turbidity Clear (Clear) 03/09/22 10:09 Urine pH 7.0 (5.0-7.0) 03/09/22 10:09 Ur Specific [place] 1.011 (1.003-1.030) 03/09/22 10:09 Urine Protein >500 mg/dL (Negative) 03/09/22 10:09 Urine Glucose (UA) >=500 mg/dL (Negative) 03/09/22 10:09 Urine Ketones Tr mg/dL (Negative) 03/09/22 10:09 Urine Blood Neg (Negative) 03/09/22 10:09 Urine Nitrite Neg (Negative) 03/09/22 10:09 Urine Bilirubin Neg (Negative) 03/09/22 10:09 Urine Urobilinogen < 2.0 mg/dL (<2.0) 03/09/22 10:09 Ur Leukocyte Esterase Neg (Negative) 03/09/22 10:09 Urine WBC (Auto) 4.0 /HPF (0.0-6.0) 03/09/22 10:09 Urine RBC (Auto) 1.0 /HPF (0.0-6.0) 03/09/22 10:09 Vazquez/IV: Voiding Method Indwelling Catheter Active Medications - Current Medications Current Medications: Generic Name Dose Route Start Last Admin Trade Name Freq PRN Reason Stop Dose Admin Acetaminophen 650 mg 03/09/22 18:05 Acetaminophen 325 Mg Tab PO Q4H PRN Pain MILD(1-3)/Fever >100.5/KLEIN Dextrose 0 ml 03/09/22 11:35 Dextrose 50% In Water (25gm) 50 Ml Syringe IV Q30MIN PRN Hypoglycemia Protocol Famotidine 10 mg 03/09/22 22:00 03/09/22 22:08 Famotidine 20 Mg/2 Ml Inj IV 10 mg BID SUZANNA Administration Heparin Sodium (Porcine) 5,000 unit 03/09/22 22:00 03/09/22 22:08 Heparin 5,000 Unit/1 Ml Vial SUB-Q 5,000 unit Q12HR SUZANNA Administration Hydromorphone HCl 0.5 mg 03/09/22 18:05 Hydromorphone 0.5 Mg/0.5 Ml Inj IV Q3H PRN Pain , Severe (7-10) Insulin Human Regular 100 100 mls @ 1 mls/hr 03/09/22 13:00 03/10/22 06:00 units/ Sodium Chloride IV 0 units/hr TITR SUZANNA 0 mls/hr Titration Protocol 1 UNITS/HR Potassium Chloride/Dextrose/Sod Cl 20 meq in 1,000 mls @ 125 mls/hr 03/09/22 12:00 03/10/22 06:07 D5w/0.45% Nacl/Kcl 20 Meq IV 125 mls/hr DIRECT SUAZNNA Administration Potassium Chloride 10 meq in 100 mls @ 100 mls/hr 03/09/22 18:15 03/10/22 06:55 Kcl 10meq/100ml IV 100 mls/hr Q1H PRN Administration LOW Potassium Levels 3.0 - 3.3 Potassium Chloride 10 meq in 100 mls @ 100 mls/hr 03/09/22 18:15 Kcl 10meq/100ml IV Q1H PRN LOW POTASSIUM LEVEL 2.6 - 2.9 Metoclopramide HCl 5 mg 03/09/22 18:05 Metoclopramide 10 Mg/2 Ml Inj IV Q6H PRN Nausea And Vomiting Morphine Sulfate 2 mg 03/09/22 18:05 Morphine 2 Mg/1 Ml Inj IV Q4H PRN Pain, Moderate (4-6) Ondansetron HCl 4 mg 03/09/22 18:05 Ondansetron 4 Mg/2 Ml Inj IV Q3H PRN Nausea And Vomiting Sodium Chloride 10 ml 03/09/22 22:00 03/09/22 22:09 Sodium Chloride 0.9% 10 Ml Flush Syringe IV 10 ml BID SUZANNA Administration Sodium Chloride 10 ml 03/09/22 18:05 Sodium Chloride 0.9% 10 Ml Flush Syringe IV PRN PRN LINE FLUSH
[2022-03-10] MEDS ORDERED: SODIUM CHLORIDE 0.9% 100 ML IV PRN (08:54)
[2022-03-10] MEDS ORDERED: EPOETIN ALFA-EPBX 10,000 UNIT/1 ML VIAL IV PRN (08:54)
[2022-03-10] MEDS ORDERED: ALBUMIN HUMAN 25% (25 GM/100 ML) INJ IV PRN (08:54)
--- NOTE | 2022-03-10 09:05 | Consultation ---
History of Present Illness - Reason for Consult Consult date: 03/10/22 end stage renal disease Requesting physician: BRIGITTE ALONSO - History of Present Illness 31-year-old -Swedish male with type 1 diabetes since age 4 years old consult for ultrasound failure for this morning. Patient is on NovoLog 70/30 20 units twice a day and sliding scale. EMS was called because of apparent seizures and decreased sensorium. Decreased responsiveness. Patient had a rec ent left foot TMA in November 2021. Patient was diagnosed with end-stage renal disease in November 2021. Patient on dialysis 3 times a week. Patient follows with Dr. Anders of [facility] nephrology group. No nausea or vomiting. No fever or chills. Patient had a high glucose of around 800. Increased anion gap. Was reported initially and changed to do not report status. - Past Medical History --Previous Medical History?: Yes --Hypertension: Yes --Diabetes: Yes --Renal Disease: Yes - Surgical History --Additional Surgical History: November 15, 2021 surgery to amputate 5 toes on left foot secondary to infection - Social History --Smoking Status: Unknown if ever smoked - Medications --Home Medications: Home Medications Medication Instructions Recorded Confirmed Last Taken Type Insulin NPH Hum/Reg Insulin Hm 20 units SC BIDPC 30 Days vial 06/09/21 Unknown Rx [Novolin 70-30 100 Unit/ml Vial] amLODIPine 10 mg PO DAILY #30 tablet 01/19/22 Unknown Rx carvediloL [Coreg] 25 mg PO BID #60 tablet 01/19/22 Unknown Rx hydrALAZINE [Apresoline TAB] 50 mg PO Q8HR #90 tablet 01/20/22 Unknown Rx Review of Systems ROS: Constitutional no weight loss or weight gain no fever or chills HEENT no sore throat no post nasal drip no diplopia Neck no neck stiffness no lymph gland enlargement Chest and lungs no shortness of breath cough or wheezing CVS no chest pain no diaphoresis no palpitations GI no nausea no vomiting no diarrhea Genitourinary system no dysuria no flank pain Musculoskeletal system no muscle pains no joint pains [employer]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 Skin no rash no itching Psychiatric no depression no homicidal or suicidal tendencies Hematologic no lymphedema or bruising Endocrine no polydipsia no polyuria no cold intolerance no heat intolerance Medications and Allergies Allergies Allergy/AdvReac Type Severity Reaction Status Date / Time No Known Allergies Allergy Verified 06/06/21 16:06 Home Medications Medication Instructions Recorded Confirmed Last Taken Type Insulin NPH Hum/Reg Insulin Hm 20 units SC BIDPC 30 Days vial 06/09/21 Unknown Rx [Novolin 70-30 100 Unit/ml Vial] amLODIPine 10 mg PO DAILY #30 tablet 01/19/22 Unknown Rx carvediloL [Coreg] 25 mg PO BID #60 tablet 01/19/22 Unknown Rx hydrALAZINE [Apresoline TAB] 50 mg PO Q8HR #90 tablet 01/20/22 Unknown Rx Active Meds: Active Medications Acetaminophen (Acetaminophen 325 Mg Tab) 650 mg PO Q4H PRN PRN Reason: Pain MILD(1-3)/Fever >100.5/KLEIN Albumin Human (Albumin Human 25% (25 Gm/100 Ml) Inj) 25 gm IV EARLINE PRN PRN Reason: Hypotension Dextrose (Dextrose 50% In Water (25gm) 50 Ml Syringe) 0 ml IV Q30MIN PRN; Protocol PRN Reason: Hypoglycemia Epoetin Jacob-epbx (Epoetin Jacob-Epbx 10,000 Unit/1 Ml Vial) 10,000 unit IV EARLINE PRN PRN Reason: hemodialysis Famotidine (Famotidine 20 Mg/2 Ml Inj) 10 mg IV BID SUZANNA Last Admin: 03/09/22 22:08 Dose: 10 mg Heparin Sodium (Porcine) (Heparin 5,000 Unit/1 Ml Vial) 5,000 unit SUB-Q Q12HR SUZANNA Last Admin: 03/09/22 22:08 Dose: 5,000 unit Hydromorphone HCl (Hydromorphone 0.5 Mg/0.5 Ml Inj) 0.5 mg IV Q3H PRN PRN Reason: Pain , Severe (7-10) Insulin Human Regular 100 (units/ Sodium Chloride) 100 mls @ 1 mls/hr IV TITR SUZANNA; Protocol Last Titration: 03/10/22 06:00 Dose: 0 units/hr, 0 mls/hr Potassium Chloride (Kcl 10meq/100ml) 10 meq in 100 mls @ 100 mls/hr IV Q1H PRN PRN Reason: LOW Potassium Levels 3.0 - 3.3 Last Admin: 03/10/22 06:55 Dose: 100 mls/hr Potassium Chloride (Kcl 10meq/100ml) 10 meq in 100 mls @ 100 mls/hr IV Q1H PRN PRN Reason: LOW POTASSIUM LEVEL 2.6 - 2.9 Sodium Chloride (Nacl 0.9%) 100 mls @ 999 mls/hr IV EARLINE PRN PRN Reason: Hypotension Metoclopramide HCl (Metoclopramide 10 Mg/2 Ml Inj) 5 mg IV Q6H PRN PRN Reason: Nausea And Vomiting Morphine Sulfate (Morphine 2 Mg/1 Ml Inj) 2 mg IV Q4H PRN PRN Reason: Pain, Moderate (4-6) Ondansetron HCl (Ondansetron 4 Mg/2 Ml Inj) 4 mg IV Q3H PRN PRN Reason: Nausea And Vomiting Sodium Chloride (Sodium Chloride 0.9% 10 Ml Flush Syringe) 10 ml IV BID SUZANNA Last Admin: 03/09/22 22:09 Dose: 10 ml Sodium Chloride (Sodium Chloride 0.9% 10 Ml Flush Syringe) 10 ml IV PRN PRN PRN Reason: LINE FLUSH Exam - Vital Signs Vital signs: Vital Signs Pulse Resp Pulse Ox 98 H 20 100 03/09/22 10:10 03/09/22 10:10 03/09/22 10:10 - Physical Exam Narrative exam: General appearance: Present: mild distress, well-nourished - EENT Eyes: Present: PERRL ENT: hearing intact, clear oral mucosa - Neck Neck: Present: supple, normal ROM - Respiratory Respiratory effort: normal Respiratory: bilateral: CTA - Cardiovascular Heart rate: 98 Rhythm: regular Heart Sounds: Present: S1 & S2. Absent: rub, click - Extremities Extremities: no ischemia, pulses intact, pulses symmetrical, No edema, abnormal (Left foot TMA) Extremity abnormal: other (Left foot TMA) Peripheral Pulses: within normal limits - Abdominal General gastrointestinal: Present: soft, non-tender, non-distended, normal bowel sounds Male genitourinary: Present: normal - Integumentary Integumentary: Present: clear, warm, dry - Musculoskeletal Musculoskeletal: gait normal, strength equal bilaterally - Psychiatric Psychiatric: appropriate mood/affect, intact judgment & insight - Neurologic Neurologic: CNII-XII intact, moves all extremities Results - Lab Results 03/10/22 04:55 03/10/22 04:55 Most recent lab results ABG pH 7.340 pH Units (7.350-7.450) L 03/09/22 11:15 ABG pCO2 34.5 mm Hg 03/09/22 11:15 ABG pO2 46.2 mm Hg (80.0-90.0) L 03/09/22 11:15 ABG HCO3 18.2 mmol/L (20.0-26.0) L 03/09/22 11:15 ABG O2 Saturation 71.9 % (95.0-99.0) L 03/09/22 11:15 Calcium 9.0 mg/dL (8.4-10.2) 03/10/22 04:55 Phosphorus 9.00 mg/dL (2.5-4.5) H D 03/09/22 19:58 Magnesium 3.10 mg/dL (1.7-2.3) H 03/09/22 19:58 Assessment and Plan Impression: * ESRD * Hyperglycemia * Hypokalemia * Uremia * Seizures * Uncontrolled DM Plan: * HD today and prn until uremia resolves * patient in uremic, likley cause of seizures * daily lytes and strict i/os * stop ivfs * renal elaine dan in place * glucose management per primary team
[2022-03-10] MEDS: HEPARIN 5,000 UNIT/1 ML VIAL SUB-Q SCH ×2 (11:04→21:30)
[2022-03-10] MEDS: FAMOTIDINE 20 MG/2 ML INJ IV SCH ×2 (11:04→21:30)
--- NOTE | 2022-03-10 11:13 | Ultrasound Report ---
ULTRASOUND RENAL INDICATION: renal failure. COMPARISON: Ultrasound 06/06/2021. FINDINGS: RIGHT KIDNEY: Size: 10.5 cm. Echogenicity: Increased. Cortical thickness: Normal. Stones: None. Hydronephrosis: None. Cyst or mass: None. LEFT KIDNEY: Size: 10.7 cm. Echogenicity: Increased. Cortical thickness: Normal. Stones: None. Hydronephrosis: None. Cyst or mass: None. Urinary Bladder: Collapsed around a Vazquez catheter. Free Fluid: None. Additional Findings: None. IMPRESSION 1. No acute findings. Increased echogenicity throughout the cortex of both kidneys can be seen in the setting of medical renal disease.. Signer Name: Colton Allred MD Signed: 03/10/2022 11:09 AM Workstation Name: [id number]
[2022-03-10] MEDS: amLODIPine 10 MG TAB PO SCH (11:40)
[2022-03-10] MEDS: hydrALAZINE 100 MG TAB PO SCH ×2 (13:30→19:55)
[2022-03-10 13:41] LABS: Creatinine,Urine 66.8 mg/dL (0.1-20.0)
[2022-03-10 13:58] LABS: Hepatitis B Surface Antigen Non-Reactive (Negative); Hepatitis C Virus Antibody Non-Reactive (NonReactive)
[2022-03-10] MEDS ORDERED: DEXTROSE 50% IN WATER (25GM) 50 ML SYRINGE IV PRN (15:00)
[2022-03-10] MEDS: INSULIN NPH/REGULAR 70/30 INJ SUB-Q SCH (18:12)
[2022-03-10] MEDS: INSULIN LISPRO 100 UNIT/ML SUB-Q SCH (18:12)
[2022-03-11] MEDS: INSULIN LISPRO 100 UNIT/ML SUB-Q SCH ×3 (00:05→11:46)
[2022-03-11 05:51] LABS: Basophils # (Auto) 0.1 K/mm3 (0.0-0.1); Basophils % (Auto) 0.6 % (0.0-1.8); Eosinophils # (Auto) 0.2 K/mm3 (0.0-0.4); Eosinophils % (Auto) 1.9 % (0.0-4.3); Hematocrit 34.7 % (35.5-45.6); Hemoglobin 10.7 gm/dl (11.8-15.2); Lymphocytes # (Auto) 2.8 K/mm3 (1.2-5.4); Lymphocytes % (Auto) 28.8 % (13.4-35.0); Mean Corpuscular HGB Conc 31 % (32-34); Monocytes # (Auto) 0.7 K/mm3 (0.0-0.8); Platelet Count 224 K/mm3 (140-440); Red Blood Count 4.97 M/mm3 (3.65-5.03); Red Cell Distribution Width 17.3 % (13.2-15.2)
[2022-03-11 06:00] LABS: Mean Corpuscular Volume 70 fl (84-94)
[2022-03-11 06:12] LABS: Albumin 3.9 g/dL (3.9-5); Calcium 9.3 mg/dL (8.4-10.2)
[2022-03-11] MEDS: hydrALAZINE 100 MG TAB PO SCH (09:00)
[2022-03-11] MEDS: INSULIN NPH/REGULAR 70/30 INJ SUB-Q SCH (09:00)
[2022-03-11] MEDS: amLODIPine 10 MG TAB PO SCH (09:13)
[2022-03-11] MEDS: HEPARIN 5,000 UNIT/1 ML VIAL SUB-Q SCH (09:14)
[2022-03-11] MEDS: FAMOTIDINE 20 MG/2 ML INJ IV SCH (09:14)
--- NOTE | 2022-03-11 11:28 | Progress Note ---
Assessment and Plan Impression: * ESRD * Hyperglycemia * Hypokalemia * Uremia * Seizures * Uncontrolled DM Plan: * HD qMWF and prn, s/p HD yesterday * patient in uremic, likley cause of seizures * daily lytes and strict i/os * uf as tolerated with HD * stress compliance with medical therapy * glucose management per primary team Subjective Date of service: 03/11/22 Interval history: resting well in bed today Objective - Exam Narrative Exam: General appearance: Present: mild distress, well-nourished - EENT Eyes: Present: PERRL ENT: hearing intact, clear oral mucosa - Neck Neck: Present: supple, normal ROM - Respiratory Respiratory effort: normal Respiratory: bilateral: CTA - Cardiovascular Heart rate: 98 Rhythm: regular Heart Sounds: Present: S1 & S2. Absent: rub, click - Extremities Extremities: no ischemia, pulses intact, pulses symmetrical, No edema, abnormal (Left foot TMA) Extremity abnormal: other (Left foot TMA) Peripheral Pulses: within normal limits - Abdominal General gastrointestinal: Present: soft, non-tender, non-distended, normal bowel sounds Male genitourinary: Present: normal - Integumentary Integumentary: Present: clear, warm, dry - Musculoskeletal Musculoskeletal: gait normal, strength equal bilaterally - Psychiatric Psychiatric: appropriate mood/affect, intact judgment & insight - Neurologic Neurologic: CNII-XII intact, moves all extremities - Vital Signs Vital signs: Vital Signs - 12hr 03/10/22 03/11/22 03/11/22 23:48 00:00 01:00 Temperature 99.5 F Pulse Rate 90 87 Pulse Rate [ 87 Right Radial] Respiratory 12 14 Rate Blood Pressure 148/89 155/91 146/90 O2 Sat by Pulse 99 99 98 Oximetry 03/11/22 03/11/22 03/11/22 02:00 03:00 04:00 Temperature 98.5 F Pulse Rate 85 81 79 Pulse Rate [ 95 H Right Radial] Respiratory 14 13 13 Rate Blood Pressure 146/89 155/95 142/85 O2 Sat by Pulse 98 100 100 Oximetry 03/11/22 03/11/22 03/11/22 05:00 06:00 07:00 Temperature Pulse Rate 76 80 78 Pulse Rate [ Right Radial] Respiratory 13 12 12 Rate Blood Pressure 143/77 148/89 150/86 O2 Sat by Pulse 98 100 100 Oximetry 03/11/22 03/11/22 03/11/22 08:00 09:00 09:13 Temperature 98.5 F Pulse Rate 80 78 81 Pulse Rate [ 89 Right Radial] Respiratory 18 12 Rate Blood Pressure 161/115 143/85 143/85 O2 Sat by Pulse 99 99 Oximetry 03/11/22 10:00 Temperature Pulse Rate 84 Pulse Rate [ Right Radial] Respiratory 12 Rate Blood Pressure 145/81 O2 Sat by Pulse 100 Oximetry - Lab 03/11/22 05:24 03/11/22 05:24 Most recent lab results ABG pH 7.340 pH Units (7.350-7.450) L 03/09/22 11:15 ABG pCO2 34.5 mm Hg 03/09/22 11:15 ABG pO2 46.2 mm Hg (80.0-90.0) L 03/09/22 11:15 ABG HCO3 18.2 mmol/L (20.0-26.0) L 03/09/22 11:15 ABG O2 Saturation 71.9 % (95.0-99.0) L 03/09/22 11:15 Calcium 9.3 mg/dL (8.4-10.2) 03/11/22 05:24 Phosphorus 9.00 mg/dL (2.5-4.5) H D 03/09/22 19:58 Magnesium 3.10 mg/dL (1.7-2.3) H 03/09/22 19:58 Urine Creatinine 66.8 mg/dL (0.1-20.0) H 03/10/22 10:30 Urine Sodium 89 mmol/L 03/10/22 10:30 Medications & Allergies - Medications Allergies/Adverse Reactions: Allergies No Known Allergies Allergy (Verified 03/10/22 16:31) Home Medications: Home Medications Medication Instructions Recorded Confirmed Last Taken Type Insulin NPH Hum/Reg Insulin Hm 20 units SC BIDPC 30 Days vial 06/09/21 03/11/22 Unknown Rx [Novolin 70-30 100 Unit/ml Vial] amLODIPine 10 mg PO DAILY #30 tablet 01/19/22 03/11/22 Unknown Rx carvediloL [Coreg] 25 mg PO BID #60 tablet 01/19/22 03/11/22 Unknown Rx hydrALAZINE [Apresoline TAB] 50 mg PO Q8HR #90 tablet 01/20/22 03/11/22 Unknown Rx Active Medications: Generic Name Dose Route Start Last Admin Trade Name Freq PRN Reason Stop Dose Admin Acetaminophen 650 mg 03/09/22 18:05 Acetaminophen 325 Mg Tab PO Q4H PRN Pain MILD(1-3)/Fever >100.5/KLEIN Albumin Human 25 gm 03/10/22 08:54 Albumin Human 25% (25 Gm/100 Ml) Inj IV EARLINE PRN Hypotension Amlodipine Besylate 10 mg 03/10/22 12:00 03/11/22 09:13 Amlodipine 10 Mg Tab PO 10 mg QDAY SUZANNA Administration Dextrose 50 ml 03/10/22 15:00 Dextrose 50% In Water (25gm) 50 Ml Syringe IV Q30MIN PRN Hypoglycemia Protocol Epoetin Jacob-epbx 10,000 unit 03/10/22 08:54 03/10/22 15:51 Epoetin Jacob-Epbx 10,000 Unit/1 Ml Vial IV 10,000 unit EARLINE PRN Administration hemodialysis Famotidine 10 mg 03/09/22 22:00 03/11/22 09:14 Famotidine 20 Mg/2 Ml Inj IV 10 mg BID SUZANNA Administration Heparin Sodium (Porcine) 5,000 unit 03/09/22 22:00 03/11/22 09:14 Heparin 5,000 Unit/1 Ml Vial SUB-Q 5,000 unit Q12HR SUZANNA Administration Hydralazine HCl 100 mg 03/10/22 14:00 03/11/22 09:00 Hydralazine 100 Mg Tab PO 100 mg TID SUZANNA Administration Hydromorphone HCl 0.5 mg 03/09/22 18:05 Hydromorphone 0.5 Mg/0.5 Ml Inj IV Q3H PRN Pain , Severe (7-10) Sodium Chloride 100 mls @ 999 mls/hr 03/10/22 08:54 Nacl 0.9% IV EARLINE PRN Hypotension Insulin Human Isoph/Insulin Regular 30 unit 03/10/22 17:00 03/11/22 09:00 Insulin Nph/Regular 70/30 Inj SUB-Q 30 unit BIDDIAB SUZANNA Administration Insulin Human Lispro 0 unit 03/10/22 18:00 03/11/22 05:36 Insulin Lispro 100 Unit/Ml SUB-Q Not Given Q6HR [facility] Protocol Labetalol HCl 10 mg 03/10/22 11:10 03/10/22 12:04 Labetalol 20 Mg/4 Ml Inj IV 10 mg Q4HR PRN Administration [id number] Metoclopramide HCl 5 mg 03/09/22 18:05 Metoclopramide 10 Mg/2 Ml Inj IV Q6H PRN Nausea And Vomiting Morphine Sulfate 2 mg 03/09/22 18:05 Morphine 2 Mg/1 Ml Inj IV Q4H PRN Pain, Moderate (4-6) Ondansetron HCl 4 mg 03/09/22 18:05 Ondansetron 4 Mg/2 Ml Inj IV Q3H PRN Nausea And Vomiting Sodium Chloride 10 ml 03/09/22 22:00 03/11/22 09:15 Sodium Chloride 0.9% 10 Ml Flush Syringe IV 10 ml BID SUZANNA Administration Sodium Chloride 10 ml 03/09/22 18:05 Sodium Chloride 0.9% 10 Ml Flush Syringe IV PRN PRN LINE FLUSH
[2022-03-11] MEDS ORDERED: INSULIN NPH/REGULAR 70/30 INJ SUB-Q SCH (11:51)
[2022-03-11 13:12] VITALS: BP 139/80
--- NOTE | 2022-03-11 14:58 | Discharge Summary ---
Providers - Providers Date of Admission: 03/09/22 18:05 Date of discharge: 03/11/22 Attending physician: CHRISTY ANDERSON MD 03/09/22 18:15 Consult to Dietitian/Nutrition [CONS] Routine Physician Instructions: Diet education for your diabetes and kidney failur Reason For Exam: DKA Reason for Consult: Nutrition Recommendations Reason for Consult: Diet education 03/10/22 08:41 Consult to Physician [CONS] Routine Comment: called answ. service nubia o/c ayse Consulting Provider: RUTH OVALLE Physician Instructions: Reason For Exam: ESRD Primary care physician: LIFT DRIVER Hospitalization Reason for admission: seizure Condition: Stable Hospital course: History of present illness: 31-year-old -[place] male with type 1 diabetes since age 4 years old consult for ultrasound failure for this morning. Patient is on NovoLog 70/30 20 units twice a day and sliding scale. EMS was called because of apparent seizures and decreased sensorium. Decreased responsiveness. Patient had a recent left foot TMA in November 2021. Patient was diagnosed with end-stage renal disease in November 2021. Patient on dialysis 3 times a week. Patient follows with Dr. Ovalle of [facility] nephrology group. No nausea or vomiting. No fever or chills. Patient had a high glucose of around 800. Increased anion gap. Was reported initially and changed to do not report status. Hospital Course: 03/10: No further seizures noted this admission. Encephalopathy likely multifactorial from DKA and uremia. DKA corrected now, d/c dka protocol. start diabetic cld and resume home insulin regimen. will need HD as well. questionable compliance. Will follow nephrology plan. 03/11: GAP closed. DKA resolved, Encephalopathy resolved. Will discharge home with instructions to follow up OP with PCP and OP operations and maintenance technican. He was also counselled on compliance with HD. Assessment and Plan: #Diabetic ketoacidosis - BG 868, A , HCO3: 13, BG in Urine glucose elevated, urine ketones trace, - home regimen: Novlog 70/30 30 units subq bid. 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 - monitor electrolytes - neurochecks q1hr. #Acute metabolic encephalopathy -multifactorial from DKA and uremia #Metabolic acidosis - correct with dialysis and insulin #Type 1 diabetes mellitus - management as above #ESRD needing dialysis - OP operations and maintenance technican Dr Ovalle, unclear if complaint in general but has missed HD sessions as last one was 03/02. - HD per nephrology - avoid nephrotoxins,renally adjust meds - follow on serial bmp #Hypokalemia - correct with IVF and dialysis - erp - follow on serial bmp #Hypertensive emergency - on cardene IV initially - strated on amlodpine 10 mg qdaily, hydralazine 100 mg po tid - labetalol 10 mg q4hr prn. #Preventative health care - preventative health counseling regarding management of life stressors, medication compliance and overall effect of chronic medical conditions on overall health. Encourage patient to follow up closely with with OP providers +30 minutes. Disposition: 01 HOME / SELF CARE / HOMELESS Final Discharge Diagnosis (Prints w/discharge instructions): Diabetic ketoacidosis, uremia, esrd on HD, acute metabolic encephalopathy, seizure. Time spent for discharge: 35 Core Measure Documentation - Palliative Care Palliative Care/ Comfort Measures: Not Applicable - Core Measures Any of the following diagnoses?: none Exam - Physical Exam Narrative exam: Physical Exam: VITAL SIGNS: Reviewed. GENERAL: The patient appears normally developed, Vital signs as documented. confused HEAD: No signs of head trauma. EYES: Pupils are equal. Extraocular motions intact. EARS: Hearing grossly intact. MOUTH: Oropharynx is normal. NECK: No adenopathy, no JVD. CHEST: Chest with clear breath sounds bilaterally. No wheezes, rales, or rhonchi. CARDIAC: Regular rate and rhythm. S1 and S2, without murmurs, gallops, or rubs. VASCULAR: No Edema. Peripheral pulses normal and equal in all extremities. ABDOMEN: Soft, non tender and non distended. No rebound or guarding, and no masses palpated. Bowel Sounds normal. MUSCULOSKELETAL: left tma noted NEUROLOGIC EXAM: confused. no focal sensory or strength deficits. PSYCHIATRIC: confused SKIN: detail exam as documented in skin assessment - Constitutional Vitals: Temp Pulse Resp BP Pulse Ox 98.5 F 92 H 20 139/80 99 03/11/22 08:00 03/11/22 13:00 03/11/22 13:00 03/11/22 13:00 03/11/22 13:00 Plan Follow up with: PRIMARY CARE, [Primary Care Provider] - 3-5 Days
[2022-03-11] MEDS ORDERED: FAMOTIDINE 10 MG TAB PO SCH (22:00)
== END 2022-03-11 14:15 | disposition home or self-care (01) | DRG 637 ==
LOC: ED 10:07 → CC1 18:05
PROVIDERS: ADMIT Internal Medicine; ATTEND Internal Medicine
PROC: 5A1D70Z Performance of Urinary Filtration, Intermittent, Less than 6 Hours Per Day (ICD-10-PCS; principal; 2022-03-10)
DX: E10.11 Type 1 diabetes mellitus with ketoacidosis with coma (principal); G93.41 Metabolic encephalopathy; N18.6 End stage renal disease; I16.1 Hypertensive emergency; I12.0 Hypertensive chronic kidney disease with stage 5 chronic kidney disease or end stage renal disease; R56.9 Unspecified convulsions; E87.6 Hypokalemia; Z89.422 Acquired absence of other left toe(s)
CPT/HCPCS: 36415; 76770; 80048; 80053; 80074; 80076; 81001; 82010; 82570; 82803; 82962; 83735; 84100; 84300; 85025; 85027; 87040; G0378; J3480; J3490; Q0177; Q9967; J0360; J0885; J1644; J1815; J2060; J3486; J7030